=== PATIENT | male | born 1975 | race Caucasian/White ===

== ENCOUNTER 2020-11-29 07:23 | Outpatient (REF) | payer OTHER, SELFPAY ==
[2020-11-29 08:16] LABS: MANUAL DIFF FLAG NO
[2020-11-29 08:22] LABS: Basophils Percent Auto 0.5 % (0-2); Eosinophils Absolute Auto 0.4 X10*3/uL (0.0-0.4); Eosinophils Percent Auto 5.6 % (0-4); Hematocrit 47.1 % (42-52); Hemoglobin 15.1 g/dl (14.0-18.0); Imm Gran Abs Auto 0.02 X10*3/uL (0.00-0.03); Imm Gran Pct Auto 0.3 % (0.0-0.4); Lymphocytes Absolute Auto 2.2 X10*3/uL (1.2-4.9); Lymphocytes Percent Auto 35.2 % (20-40); Mean Corpuscular HGB Conc 32.1 g/dl (31.0-36.0); Mean Corpuscular Volume 84.1 fL (80-98); Mean Platelet Volume 9.6 fL (9.4-12.4); Monocytes Absolute Auto 0.6 X10*3/uL (0.1-1.2); Monocytes Percent Auto 9.4 % (2-11); Neutrophils Absolute Auto 3.1 X10*3/uL (2.0-8.3); Platelet Count 251 X10*3/uL (160-400); Red Cell Distribution Width 13.5 % (11.0-16.0); White Blood Count 6.3 X10*3/uL (4.8-10.8)
[2020-11-29 08:39] LABS: Alanine Aminotransferase 30 U/L (0-40); Albumin Level 4.4 g/dL (3.5-5.0); Alkaline Phosphatase 53 U/L (39-117); Anion Gap 10 (12-20); Aspartate Amino Transferase 24 U/L (5-37); Blood Urea Nitrogen 15 mg/dL (9-16); Calcium 9.7 mg/dL (8.4-10.2); Carbon Dioxide 30 mmol/L (22-29); Chloride 106 mmol/L (96-108); Cholesterol 189 mg/dL; Estimated Glomerular Filt Rate > 60; Glucose Random 110 mg/dL (60-115); HDL Cholesterol 43 mg/dL; LDL Cholesterol Calculated 116 mg/dl; Potassium 4.7 mmol/L (3.3-5.1); Sodium 141 mmol/L (135-145); Total Protein 7.4 g/dL (6.5-8.0); Triglycerides 153 mg/dL
[2020-11-29 09:03] LABS: Prostate Specific Antigen 0.73 ng/mL (<0.05-4.0)
== END 2020-11-29 07:24 | disposition home or self-care (01) ==
LOC: HO.LAB 07:23
PROVIDERS: PCP Internal Medicine Medical Oncology; Visit Provider Internal Medicine Medical Oncology
DX: Z00.00 Encounter for general adult medical examination without abnormal findings (principal); N20.0 Calculus of kidney; N52.9 Male erectile dysfunction, unspecified
CPT/HCPCS: 36415; 80053; 80061; 84153; 85025

== ENCOUNTER 2020-12-13 09:43 | Outpatient (REF) | payer OTHER, SELFPAY ==
--- NOTE | ~2020-12-13 | XR_ITS ---
EXAMINATION: XR KNEE, LEFT CLINICAL INFORMATION: Knee pain COMPARISON: None TECHNIQUE: Three views of the left knee. FINDINGS: There is no fracture, dislocation, or effusion. No joint narrowing or erosive change or chondrocalcinosis. Hoffa's fat pad and the deep infrapatellar recess are unremarkable. Bony mineralization is within normal. No lateralization patella. XR/XR knee LT 3V IMPRESSION: Unremarkable left knee.
== END 2020-12-13 09:44 | disposition home or self-care (01) ==
LOC: HO.XRAY 09:43
PROVIDERS: PCP Internal Medicine Medical Oncology; Visit Provider Physician Assistant
DX: S83.8X2A Sprain of other specified parts of left knee, initial encounter (principal); M25.562 Pain in left knee
CPT/HCPCS: 73562

== ENCOUNTER 2021-11-06 10:53 | Outpatient (REF) | payer OTHER, SELFPAY | END 2021-11-06 10:54 | disposition home or self-care (01) | LOC: HO.HOSX 10:53 | PROVIDERS: Visit Provider Physician Assistant | DX: Z13.89 Encounter for screening for other disorder (principal) ==

== ENCOUNTER 2022-02-19 07:56 | Outpatient (REF) | payer OTHER, SELFPAY ==
--- NOTE | ~2022-02-19 | XR_ITS ---
EXAMINATION: Knee x-ray CLINICAL INFORMATION: Pain COMPARISON: None TECHNIQUE: Standing AP view of both knees and lateral and sunrise view of the left knee FINDINGS: Right: Bone alignment is normal. No fracture or dislocation is seen. Joint spaces are normal. There is no joint effusion. AP view of the left knee is unremarkable. XR/XR knee standing BI IMPRESSION: Unremarkable exam.
--- NOTE | ~2022-02-19 | XR_ITS ---
EXAMINATION: Knee x-ray CLINICAL INFORMATION: Pain COMPARISON: None TECHNIQUE: Standing AP view of both knees and lateral and sunrise view of the left knee FINDINGS: Right: Bone alignment is normal. No fracture or dislocation is seen. Joint spaces are normal. There is no joint effusion. AP view of the left knee is unremarkable. XR/XR knee RT 2V IMPRESSION: Unremarkable exam.
== END 2022-02-19 07:57 | disposition home or self-care (01) ==
LOC: HO.HOSX 07:56
PROVIDERS: Visit Provider Physician Assistant
DX: M25.561 Pain in right knee (principal)
CPT/HCPCS: 73560; 73565

== ENCOUNTER 2022-03-05 08:41 | Outpatient (REF) | payer OTHER, SELFPAY ==
--- NOTE | ~2022-03-05 | MR_ITS ---
EXAMINATION: MR KNEE WITHOUT CONTRAST, RIGHT CLINICAL INFORMATION: Internal derangement of right knee. COMPARISON: X-rays of the right knee January 2022. TECHNIQUE: MRI of the knee without contrast was performed using routine sequences on a high-field scanner. FINDINGS: MENISCI: Medial Meniscus: Intact. Lateral Meniscus: Intact. LIGAMENTS: Cruciate: Intact enthesopathic cystic changes at the cruciate ligament attachment to the tibia. Collateral: Intact. EXTENSOR MECHANISM: Intact. ARTICULAR CARTILAGE/BONE: Patellofemoral Compartment: Small subchondral cyst in the medial facet with some minimal overlying cartilage heterogeneity. Trochlear cartilage normal. Overall mild patellofemoral arthrosis. Medial Compartment: Normal. Lateral Compartment: Normal. Miscellaneous: There are small oval foci within the medial metaphysis of the tibia and lateral metaphysis of the distal femur with a similar appearance being dark on T1 and bright on T2 with punctate areas of low signal within them. These measure approximately 4 mm each. These likely reflect small cartilage lesions/enchondromas. No surrounding edema. JOINT FLUID AND BURSAE: Normal. MR/MR knee RT wo con IMPRESSION: Menisci intact. Mild patellofemoral arthrosis. Small intramedullary lesions within the distal femur and proximal tibia most compatible with small cartilage lesions likely enchondroma and without clinical significance.
[2022-03-05 08:57] LABS: MANUAL DIFF FLAG NO
[2022-03-05 09:36] LABS: Basophils Percent Auto 0.6 % (0-2); Eosinophils Absolute Auto 0.4 X10*3/uL (0.0-0.4); Eosinophils Percent Auto 6.3 % (0-4); Hematocrit 45.9 % (42.0-52.0); Imm Gran Abs Auto 0.03 X10*3/uL (0.00-0.03); Imm Gran Pct Auto 0.5 % (0.0-0.4); Lymphocytes Absolute Auto 2.1 X10*3/uL (1.2-4.9); Lymphocytes Percent Auto 32.1 % (20-40); Mean Corpuscular HGB Conc 32.7 g/dl (31.0-36.0); Mean Corpuscular Hemoglobin 27.5 pg (27.0-33.0); Mean Corpuscular Volume 84.2 fL (80.0-98.0); Monocytes Absolute Auto 0.5 X10*3/uL (0.1-1.2); Monocytes Percent Auto 8.5 % (2-11); Neutrophils Absolute Auto 3.3 x10*3/uL (2.0-8.3); Platelet Count 261 X10*3/uL (160-400); Red Blood Count 5.45 X10*6/uL (4.60-5.80); Red Cell Distribution Width 13.5 % (11.0-16.0); White Blood Count 6.4 X10*3/uL (4.8-10.8)
[2022-03-05 10:00] LABS: Alanine Aminotransferase 41 U/L (0-40); Albumin Level 4.4 g/dL (3.5-5.0); Alkaline Phosphatase 69 U/L (39-117); Anion Gap 13 (12-20); Aspartate Amino Transferase 29 U/L (5-37); Bilirubin Total 0.7 mg/dL (0.0-1.0); Blood Urea Nitrogen 12 mg/dL (9-16); Calcium 9.3 mg/dL (8.4-10.2); Carbon Dioxide 29 mmol/L (22-29); Chloride 104 mmol/L (96-108); Cholesterol 177 mg/dL; Estimated Glomerular Filt Rate > 60; Glucose Fasting 105 mg/dL (60-99); HDL Cholesterol 45 mg/dL; LDL Cholesterol Calculated 119 mg/dl; Potassium 4.6 mmol/L (3.3-5.1); Sodium 141 mmol/L (135-145); Total Protein 7.7 g/dL (6.5-8.0); Triglycerides 66 mg/dL
[2022-03-05 10:25] LABS: Prostate Specific Antigen 0.72 ng/mL (<0.05-4.0)
== END 2022-03-05 08:42 | disposition home or self-care (01) ==
LOC: HO.MRI 08:41
PROVIDERS: Absent Provider Internal Medicine Medical Oncology; PCP Internal Medicine Medical Oncology; Visit Provider Physician Assistant
DX: Z00.00 Encounter for general adult medical examination without abnormal findings (principal); Z12.5 Encounter for screening for malignant neoplasm of prostate; M23.91 Unspecified internal derangement of right knee; N52.9 Male erectile dysfunction, unspecified; M25.562 Pain in left knee; E55.9 Vitamin D deficiency, unspecified
CPT/HCPCS: 36415; 73721; 80053; 80061; 84153; 85025

== ENCOUNTER → 2022-05-15 12:31 | Outpatient (BNVA) | payer OTHER, SELFPAY | PROVIDERS: PCP Internal Medicine Medical Oncology; Visit Provider Physician Assistant | DX: M23.91 Unspecified internal derangement of right knee (principal) | CPT/HCPCS: 20610; J1040 ==

== ENCOUNTER 2022-10-01 19:21 | Emergency (ER) | payer OTHER, SELFPAY ==
--- NOTE | ~2022-10-01 | CT_ITS ---
EXAMINATION: CT head/brain wo IV con CLINICAL INFORMATION: Reason for Exam new onset headache COMPARISON: None. TECHNIQUE: Contiguous axial imaging was performed from the skull base to vertex without intravenous contrast. Sagittal and coronal reformatted images were obtained. This CT examination was performed using dose optimization techniques as appropriate, variously including the following: * Automated exposure control * Adjustment of mA and/or kV according to patient size (this includes techniques or standardized protocols for targeted exams where dose is matched to indication/reason for exam; i.e. extremities or head) Use of iterative reconstruction technique DLP: 683 mGy-cm FINDINGS: No acute osseous or soft tissue abnormality. The mastoid air cells and visualized portions of the paranasal sinuses are well aerated. Debris in the left external auditory canal There is no evidence of acute intracranial hemorrhage or territorial infarction. No abnormal mass effect or midline shift is seen. Castellanos to white matter differentiation is well preserved. No extra-axial fluid collections are identified. No hydrocephalus. No significant volume loss. Hypodensities in the bilateral parietal deep white matter favored to reflect prominent perivascular spaces. Large arachnoid granulation in the right transverse sinus. CT/CT head/brain wo IV con IMPRESSION: No acute intracranial abnormality including hemorrhage, mass effect, hydrocephalus, or acute territorial edematous infarction.
[2022-10-01 19:45] VITALS: BP 111/83; PULSE 89; RESP 18; TEMP 36.5; O2SAT 97; BMI 33.1
[2022-10-01 20:19] LABS: MANUAL DIFF FLAG NO
[2022-10-01 20:24] LABS: Basophils Absolute Auto 0.1 X10*3/uL (0.0-0.2); Basophils Percent Auto 0.6 % (0-2); Eosinophils Absolute Auto 0.4 X10*3/uL (0.0-0.4); Eosinophils Percent Auto 4.3 % (0-4); Hemoglobin 14.4 g/dl (14.0-18.0); Imm Gran Abs Auto 0.03 X10*3/uL (0.00-0.03); Imm Gran Pct Auto 0.4 % (0.0-0.4); Lymphocytes Absolute Auto 2.8 X10*3/uL (1.2-4.9); Lymphocytes Percent Auto 33.9 % (20-40); Mean Corpuscular HGB Conc 32.7 g/dl (31.0-36.0); Mean Corpuscular Hemoglobin 27.3 pg (27.0-33.0); Mean Corpuscular Volume 83.5 fL (80.0-98.0); Mean Platelet Volume 9.4 fL (9.4-12.4); Monocytes Absolute Auto 0.6 X10*3/uL (0.1-1.2); Monocytes Percent Auto 7.6 % (2-11); Neutrophils Absolute Auto 4.4 x10*3/uL (2.0-8.3); Neutrophils Percent Auto 53.2 % (45-73); Platelet Count 267 X10*3/uL (160-400); Red Blood Count 5.27 X10*6/uL (4.60-5.80); Red Cell Distribution Width 13.4 % (11.0-16.0); White Blood Count 8.3 X10*3/uL (4.8-10.8)
[2022-10-01 20:41] LABS: Alanine Aminotransferase 36 U/L (0-40); Albumin Level 4.3 g/dL (3.5-5.0); Alkaline Phosphatase 55 U/L (39-117); Anion Gap 10 (12-20); Aspartate Amino Transferase 29 U/L (5-37); Bilirubin Total 0.9 mg/dL (0.0-1.0); Blood Urea Nitrogen 14 mg/dL (9-16); Calcium 9.3 mg/dL (8.4-10.2); Carbon Dioxide 28 mmol/L (22-29); Chloride 107 mmol/L (96-108); Creatinine Clr Calc Pharmacy 91.4; Estimated Glomerular Filt Rate 55; Glucose Random 89 mg/dL (60-115); Potassium 4.2 mmol/L (3.3-5.1); Sodium 141 mmol/L (135-145); Total Protein 7.2 g/dL (6.5-8.0)
--- NOTE | 2022-10-01 21:25 | ED.HA ---
HPI - Headache General Chief Complaint: Headache Stated Complaint: severe headache Time Seen by Provider: 10/01/22 21:24 Source: patient Mode of arrival: ambulatory Limitations: no limitations History of Present Illness HPI Narrative: Patient no significant past medical history notice headache on the left temporal area for last 3 days which is getting worse no photosensitivity no nausea no vomiting no dizziness no visual changes no earache no fever or chills patient never had similar headache in the past headache feels like throbbing feels like baseball hit his head. No family history of migraine Related Data Home Medications Medication Instructions Recorded Confirmed omeprazole 20 mg capsule,delayed 40 mg PO DAILY PRN 12/13/20 02/19/22 release sildenafil 100 mg tablet 100 mg PO DAILY PRN 12/13/20 02/19/22 Previous Rx's Medication Instructions Recorded [id number] 1 cap PO Q6H PRN headache #20 caps 10/01/22 50 mg-300 mg-40 mg capsule (Fioricet) Allergies Allergy/AdvReac Type Severity Reaction Status Date / Time No Known Allergies Allergy Verified 10/01/22 19:49 Review of Systems Review of Systems: Yes all other systems are reviewed and are negative [facility] Past Medical History Medical History Acid reflux Social History Social History Alcohol intake: current Alcohol intake frequency: holidays/special occasions only Patient Tobacco Use Status: Never used Tobacco Smoked in Last 30 Days: No Use of substances other than those prescribed or required for medical reasons: No Advance Directives: No Advance Directives Information Provided: No 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 Physical Exam Vital Signs: Vital Signs: Last Vital Signs Temp 97.7 F 10/01/22 19:45 Pulse 89 10/01/22 19:45 Resp 18 10/01/22 19:45 BP 111/83 10/01/22 19:45 Pulse Ox 97 10/01/22 19:45 O2 Del Method Room Air 10/01/22 19:45 BMI result Body Mass Index 33.1 Appearance: Alert. Oriented X3. No acute distress. Eyes: PERRLA, No Nystagmus ENT: Pharynx normal. Oral Mucosa moist left temporal artery tenderness left temporal area tenderness++ Neck: Normal inspection. Neck supple. CVS: Normal heart rate and rhythm. Pulses normal. Respiratory: No respiratory distress. Equal air entry bilateral, no wheezing/rales/rhonchi Abdomen: Soft and nontender. Bowel sounds are present, no mass palpable, no CVA tenderness Skin: Skin warm and dry. Normal skin color. Normal skin turgor. Extremities: No lower extremity edema. No calf tenderness Neuro: Oriented X 3. No motor deficit. No sensory deficit.No cerebellar signs , cranial nerves II-XII intact Medications Administered Discontinued Medications Generic Name Dose Route Start Last Admin Trade Name Freq PRN Reason Stop Dose Admin Acetaminophen/Butalbital/Caffeine 1 tab 10/01/22 21:26 10/01/22 21:45 Butalb/Acetamin/Caff 50/325/40 Tablet PO 10/01/22 21:27 1 tab ONCE ONE Administration Medical Decision Making Medical Decision Making [facility] Narrative: Patient with sudden onset of left temporal headache with local tenderness basic labs are normal positive for temporal arteritis/migraine/space-occupying lesion/SAH although low risk as blood pressure is normal , no focal neuro deficit His CT scan was negative sed rate is normal likely has tension headache/migraine headache with subacute onset patient felt better after Fioricet will discharge patient home on for recent no warning signs of subarachnoid bleed Lab Data [facility] Lab Attestation statement: I reviewed the patient's lab results. 10/01/22 20:14 10/01/22 20:14 Labs: Lab Results 10/01/22 10/01/22 10/01/22 Range/Units 20:14 20:14 20:14 WBC 8.3 (4.8-10.8) X10*3/uL RBC 5.27 (4.60-5.80) X10*6/uL Hgb 14.4 (14.0-18.0) g/dl Hct 44.0 (42.0-52.0) % MCV 83.5 (80.0-98.0) fL MCH 27.3 (27.0-33.0) pg MCHC 32.7 (31.0-36.0) g/dl RDW 13.4 (11.0-16.0) % Plt Count 267 (160-400) X10*3/uL MPV 9.4 (9.4-12.4) fL Immature Gran % (Auto) 0.4 (0.0-0.4) % Neut % (Auto) 53.2 (45-73) % Lymph % (Auto) 33.9 (20-40) % [place] % (Auto) 7.6 (2-11) % Eos % (Auto) 4.3 H (0-4) % Baso % (Auto) 0.6 (0-2) % Lymph # (Auto) 2.8 (1.2-4.9) X10*3/uL [place] # (Auto) 0.6 (0.1-1.2) X10*3/uL Eos # (Auto) 0.4 (0.0-0.4) X10*3/uL Baso # (Auto) 0.1 (0.0-0.2) X10*3/uL Abs Immat Gran (auto) 0.03 (0.00-0.03) X10*3/uL Absolute Neuts (auto) 4.4 (2.0-8.3) x10*3/uL Absolute Nucleated RBC 0.000 (0.0-0.012) X10*3/uL Nucleated RBC % (auto) 0.0 (0.0-0.2) /100WBC ESR 3 (0-15) MM/HR Sodium 141 (135-145) mmol/L Potassium 4.2 (3.3-5.1) mmol/L Chloride 107 (96-108) mmol/L Carbon Dioxide 28 (22-29) mmol/L Anion Gap 10 L (12-20) BUN 14 (9-16) mg/dL Creatinine 1.38 (0.5-1.4) mg/dL Estim Creat Clear Calc 91.4 Estimated GFR 55 Random Glucose 89 (60-115) mg/dL Calcium 9.3 (8.4-10.2) mg/dL Total Bilirubin 0.9 (0.0-1.0) mg/dL AST 29 (5-37) U/L ALT 36 (0-40) U/L Alkaline Phosphatase 55 (39-117) U/L Total Protein 7.2 (6.5-8.0) g/dL Albumin 4.3 (3.5-5.0) g/dL Discharge Plan Discharge Clinical Impression: Migraine Patient Disposition: Home, Self-Care Instructions: Migraine Headache (ED) Additional Instructions: Likely you have migraine headache Take medication for headache as prescribed Follow-up with your PCP if headache continues for further management including MRI Prescriptions: New qmkgcgcpep-vxxvylvpiryke-mdjq [Fioricet] 50-300-40 mg capsule 1 cap PO Q6H PRN (Reason: headache) Qty: 20 0RF No Action omeprazole 20 mg capsule,delayed release(DR/EC) 40 mg PO DAILY PRN sildenafil 100 mg tablet 100 mg PO DAILY PRN
[2022-10-01] MEDS: Butalb/Acetamin/Caff 50/325/40 TABLET 1 TAB PO (21:45)
[2022-10-01 22:13] LABS: Erythrocyte Sedimentation Rate 3 MM/HR (0-15)
== END 2022-10-01 22:53 | disposition home or self-care (01) ==
PROVIDERS: Emergency Provider Internal Medicine; PCP Internal Medicine Medical Oncology
DX: G43.909 Migraine, unspecified, not intractable, without status migrainosus (principal); Z79.899 Other long term (current) drug therapy
CPT/HCPCS: 36415; 70450; 80053; 85025; 85652; 99284

== ENCOUNTER 2023-01-28 07:49 | Outpatient (REF) | payer OTHER, SELFPAY ==
[2023-01-28 08:17] LABS: MANUAL DIFF FLAG NO
[2023-01-28 08:52] LABS: Basophils Absolute Auto 0.1 X10*3/uL (0.0-0.2); Basophils Percent Auto 0.8 % (0-2); Eosinophils Absolute Auto 0.3 X10*3/uL (0.0-0.4); Eosinophils Percent Auto 4.9 % (0-4); Hematocrit 48.6 % (42.0-52.0); Hemoglobin 15.5 g/dl (14.0-18.0); Imm Gran Abs Auto 0.01 X10*3/uL (0.00-0.03); Imm Gran Pct Auto 0.2 % (0.0-0.4); Lymphocytes Percent Auto 31.2 % (20-40); Mean Corpuscular HGB Conc 31.9 g/dl (31.0-36.0); Mean Corpuscular Hemoglobin 27.1 pg (27.0-33.0); Mean Corpuscular Volume 85.1 fL (80.0-98.0); Mean Platelet Volume 9.7 fL (9.4-12.4); Monocytes Absolute Auto 0.6 X10*3/uL (0.1-1.2); Monocytes Percent Auto 9.2 % (2-11); Neutrophils Absolute Auto 3.5 x10*3/uL (2.0-8.3); Neutrophils Percent Auto 53.7 % (45-73); Platelet Count 260 X10*3/uL (160-400); Red Blood Count 5.71 X10*6/uL (4.60-5.80); Red Cell Distribution Width 13.4 % (11.0-16.0); White Blood Count 6.5 X10*3/uL (4.8-10.8)
[2023-01-28 09:32] LABS: Alanine Aminotransferase 28 U/L (0-40); Albumin Level 4.2 g/dL (3.5-5.0); Alkaline Phosphatase 60 U/L (39-117); Anion Gap 14 (12-20); Aspartate Amino Transferase 22 U/L (5-37); Bilirubin Total 0.9 mg/dL (0.0-1.0); Blood Urea Nitrogen 13 mg/dL (9-16); Calcium 9.8 mg/dL (8.4-10.2); Carbon Dioxide 25 mmol/L (22-29); Chloride 106 mmol/L (96-108); Cholesterol 182 mg/dL; Estimated Glomerular Filt Rate > 60; Glucose Fasting 116 mg/dL (60-99); HDL Cholesterol 47 mg/dL; LDL Cholesterol Calculated 112 mg/dl; Sodium 141 mmol/L (135-145); Total Protein 7.7 g/dL (6.5-8.0); Triglycerides 118 mg/dL
[2023-01-28 09:54] LABS: Prostate Specific Antigen 0.54 ng/mL (<0.05-4.0)
== END 2023-01-28 07:50 | disposition home or self-care (01) ==
LOC: HO.LAB 07:49
PROVIDERS: PCP Internal Medicine Medical Oncology; Visit Provider Internal Medicine Medical Oncology
DX: Z00.00 Encounter for general adult medical examination without abnormal findings (principal); N52.9 Male erectile dysfunction, unspecified; E66.9 Obesity, unspecified; Z12.5 Encounter for screening for malignant neoplasm of prostate
CPT/HCPCS: 36415; 80053; 80061; 83735; 84153; 85025

== ENCOUNTER 2023-03-26 09:27 | Outpatient (AMB) | payer OTHER, SELFPAY ==
[2023-03-26 09:28] VITALS: BMI 33.1
--- NOTE | 2023-03-26 09:28 | MHC.OFFVIS ---
Intake Vital Signs 03/26/23 09:28 Height 6 ft 3 in Weight 265 lb BMI 33.1 Intake Visit Reasons: OV - right knee pain Intake Note: Damaso is a 47 year old male who presents today for a follow up for his right knee pain, last injection 05/15/22. Patient reports his left knee started to get worse about 6 months. He states that his pain is on the top of the knee. Patient states that his pain does come around the back of the knee and down to the calf. Allergies No Known Allergies Allergy (Verified 03/26/23 09:28) HPI OV - right knee pain HPI Details 47-year-old male who presents in the office today for a follow up of bilateral knee pain. The patient had a cortisone injection in the right knee on 05/15/2022, with a couple months of relief. He reports the left knee is worse then the right knee with an increase in pain about 6 months ago. He claims the pain is on the top of the knee which radiates around to the back of the knee and down to his calf. He reports he will be walking and the leg will go to sleep. He states the sensation will last for about 5 minutes. He states this has been going on for most days for the last 6 months. He denies any back pain. 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 He does a lot of pushing, pulling, and heavy lifting. 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 Review of Systems Const All systems reviewed & are unremarkable except as noted in HPI and below Physical Exam Vital Signs: BMI result Body Mass Index 33.1 Const General: cooperative, healthy appearing and no acute distress Resp Effort & Inspection: normal respiratory effort and able to speak in complete sentences Cardio Rate: regular rate Peripheral pulses: Peripheral pulses 2+ throughout GI Palpation (GI): Soft to palpation Skin Lesions: no lesions Rashes: no rashes Extrem Other: Left knee: Normal to inspection. No ecchymosis, erythema, or joint effusion. No tenderness to palpation to the lateral joint line. Tenderness to palpation of the medial joint line. Full knee extension and flexion. Positive Damian's, medial joint line. NVI. Assessment & Plan Assessment & Plan (1) Injury of meniscus of left knee: Code(s): S83.8X2A - Sprain of other specified parts of left knee, initial encounter Qualifiers: Encounter type: subsequent encounter Qualified Code(s): S83.8X2D - Sprain of other specified parts of left knee, subsequent encounter Plan Mr. Mejia is a 47-year-old male who presents in the office today for a follow up of bilateral knee pain. The patient had a cortisone injection in the right knee on 05/15/2022, with a couple months of relief. He reports the left knee is worse then the right knee with an increase in pain about 6 months ago. He claims the pain is on the top of the knee which radiates around to the back of the knee and down to his calf. He reports he will be walking and the leg will go to sleep. He states the sensation will last for about 5 minutes. He states this has been going on for most days for the last 6 months. He denies any back pain. 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 He does a lot of pushing, pulling, and heavy lifting. Due to the patient having to work today he would like to schedule the injection for next week. In the event the cortisone injection, which he will give 2 weeks, does not give the patient relief he will be referred for an MRI. For further evaluation of the lower back and intermittent left lower extremity numbness and tingling he will be referred to Physiatry. Follow up will be on Saturday with Kevin Wakefield PA-C and with Physiatry, or sooner if needed. X-rays of the left knee obtained while in the office today and reviewed by , Senia Johnston PA-C, revealed no evidence of acute fracture or dislocation. Mild arthritic changes. Orders: Orders XR knee standing BI Today M25.569 - Pain in unspecified knee XR knee LT 2V Today M25.569 - Pain in unspecified knee Patient Instructions: Scribed for Senia Johnston PA-C by Tiffany Price medical anthropology director, on 03/26/2023 at 9:30 am, EST. Coding Level of Care Code Est Pt Level 3 (74267) Diagnoses Injury of meniscus of left knee, subsequent encounter S83.8X2D Encounter type: subsequent encounter
== END 2023-03-26 10:05 | disposition home or self-care (01) ==
PROVIDERS: PCP Internal Medicine Medical Oncology; Visit Provider Physician Assistant
DX: S83.8X2D Sprain of other specified parts of left knee, subsequent encounter (principal); M25.561 Pain in right knee; M25.562 Pain in left knee
CPT/HCPCS: 99213

== ENCOUNTER 2023-03-26 09:54 | Outpatient (REF) | payer OTHER, SELFPAY ==
--- NOTE | ~2023-03-26 | XR_ITS ---
EXAMINATION: XR knee standing BI, XR knee LT 2V CLINICAL INFORMATION: 47-year-old male with nonspecific pain in left knee COMPARISON: Most recent right knee radiograph: Date TECHNIQUE: AP bilateral weightbearing, sunrise and lateral view of left knee. FINDINGS: Bones and soft tissues are normal. No fracture or joint effusion. Alignment is anatomic. Joint spaces are well maintained. No abnormal soft tissue calcification. The medial, lateral and patellofemoral compartments are preserved. No evidence of osteophytosis. No evidence of erosive changes. No suprapatellar joint effusion. No evidence of chondrocalcinosis or abnormal calcifications. No intra-articular foreign body. No fracture or dislocation. Alignment is anatomic. No joint effusion. No soft tissue abnormality. XR/XR knee LT 2V IMPRESSION: Normal right knee.
--- NOTE | ~2023-03-26 | XR_ITS ---
EXAMINATION: XR knee standing BI, XR knee LT 2V CLINICAL INFORMATION: 47-year-old male with nonspecific pain in left knee COMPARISON: Most recent right knee radiograph: Date TECHNIQUE: AP bilateral weightbearing, sunrise and lateral view of left knee. FINDINGS: Bones and soft tissues are normal. No fracture or joint effusion. Alignment is anatomic. Joint spaces are well maintained. No abnormal soft tissue calcification. The medial, lateral and patellofemoral compartments are preserved. No evidence of osteophytosis. No evidence of erosive changes. No suprapatellar joint effusion. No evidence of chondrocalcinosis or abnormal calcifications. No intra-articular foreign body. No fracture or dislocation. Alignment is anatomic. No joint effusion. No soft tissue abnormality. XR/XR knee standing BI IMPRESSION: Normal right knee.
== END 2023-03-26 09:55 | disposition home or self-care (01) ==
LOC: HO.HOSX 09:54
PROVIDERS: Visit Provider Physician Assistant
DX: M25.562 Pain in left knee (principal); M25.561 Pain in right knee; S83.8X2D Sprain of other specified parts of left knee, subsequent encounter; X58.XXXD Exposure to other specified factors, subsequent encounter
CPT/HCPCS: 73560; 73565

== ENCOUNTER 2023-04-02 19:27 | Day surgery (SDC) | payer OTHER, SELFPAY ==
--- NOTE | ~2023-04-02 | FL_ITS ---
EXAMINATION: XR FLUOROSCOPY WITH IMAGES CLINICAL INFORMATION: Cystoscopy. COMPARISON: None available. TECHNIQUE: Fluoroscopy Supervised By: Dr. Derrick Poon. Fluoroscopy Time: 26.2 seconds. Cumulative Dose: 18.05 mGy. DAP: Not available. Images: 3. FINDINGS: Images demonstrate a left internal ureteral stent in satisfactory position. FL/FL guidance in OR IMPRESSION: Fluoroscopy guidance for urology procedure
[2023-04-02 21:00] VITALS: BP 124/76; PULSE 67; RESP 18; TEMP 36.6; O2SAT 97; BMI 33.4
--- NOTE | 2023-04-02 21:53 | MHC.EDTECH ---
Labs,and a urine culture were obtained and patient brought back to waiting area.
[2023-04-02 22:08] LABS: Alanine Aminotransferase 29 U/L (0-40); Albumin Level 4.6 g/dL (3.5-5.0); Alkaline Phosphatase 61 U/L (39-117); Anion Gap 16 (12-20); Aspartate Amino Transferase 34 U/L (5-37); Bilirubin Direct 0.3 mg/dL (0.0-0.5); Bilirubin Total 0.9 mg/dL (0.0-1.0); Blood Urea Nitrogen 14 mg/dL (9-16); Carbon Dioxide 23 mmol/L (22-29); Chloride 103 mmol/L (96-108); Creatinine Clr Calc Pharmacy 83.5; Estimated Glomerular Filt Rate 50; Glucose Random 129 mg/dL (60-115); Lipase 15 U/L (8-78); Potassium 4.5 mmol/L (3.3-5.1); Sodium 137 mmol/L (135-145); Total Protein 8.6 g/dL (6.5-8.0)
[2023-04-03] VITALS (10 sets, daily range): BP systolic 94–131; BP diastolic 57–90; PULSE 74–91; RESP 16–18; TEMP 36.7–37.7; O2SAT 94–100
--- NOTE | 2023-04-03 00:24 | ED.ABDPAIN ---
HPI - Abdominal Pain General Chief Complaint: Abdominal Pain Stated Complaint: ?Kidney stones Time Seen by Provider: 04/03/23 00:19 Source: patient Mode of arrival: ambulatory Limitations: no limitations History of Present Illness HPI narrative: A 47 year male came in for evaluation of left-sided abdominal pain, started early today, pain has been constant pain started and left flank area now moving down to the left groin area, pain is associated with nausea, vomiting, and chills. Patient had similar pain in the past when he gets kidney stones last stone was 8 years ago patient usually require surgical intervention to extract the stone. Past abdominal surgeries significant for hernia repair. Related Data Home Medications Medication Instructions Recorded Confirmed omeprazole 20 mg capsule,delayed 40 mg PO DAILY PRN 12/13/20 02/19/22 release sildenafil 100 mg tablet 100 mg PO DAILY PRN 12/13/20 02/19/22 Previous Rx's Medication Instructions Recorded pykhhdpuik-epddqdroghspe-xiohnuyv 1 cap PO Q6H PRN headache #20 caps 10/01/22 50 mg-300 mg-40 mg capsule (Fioricet) Allergies Allergy/AdvReac Type Severity Reaction Status Date / Time No Known Allergies Allergy Verified 03/26/23 09:28 Review of Systems Review of Systems All other systems are reviewed and are negative Constitutional: Reports as per HPI and Reports no additional constitutional complaints Eyes: Reports as per HPI and Reports no additional eye complaints Reports system reviewed and no additional complaints, except as documented Cardiovascular: Reports as per HPI and Reports no additional cardiovascular complaints Respiratory: Reports as per HPI and Reports no additional respiratory complaints Gastrointestinal: Reports as per HPI and Reports no additional gastrointestinal complaints Genitourinary: Reports no additional female genitourinary complaints Musculoskeletal: Reports no additional musculoskeletal complaints Skin/Breast: Reports system reviewed and no additional complaints, except as docu Psychiatric: Reports no additional psychiatric complaints Endocrine: Reports no additional endocrine complaints Hematologic/Lymphatic: Reports no additional hematologic/lymphatic complaints Allergic/Immunologic: Reports no additional allergic/immunologic complaints Reports system reviewed and no additional complaints, except as documented and Reports Abnormal speech present [facility] Past Medical History Medical History Acid reflux Social History Social History Alcohol intake: current Alcohol intake frequency: holidays/special occasions only Patient Tobacco Use Status: Never used Tobacco Advance Directives: No Advance Directives Information Provided: No 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 Physical Exam ED Vital Signs: Vital Signs - 24 hr 04/02/23 21:00 04/03/23 01:13 04/03/23 04:42 Temperature 97.8 F 98.3 F Pulse Rate 67 90 77 Respiratory Rate 18 18 18 Blood Pressure 124/76 94/57 L 108/76 Pulse Oximetry 97 94 97 Oxygen Delivery Method Room Air Room Air Room Air BMI result Body Mass Index 33.4 Vital signs have been reviewed and appear to be correct. Blood pressure elevated. Heart rate normal. Respiratory rate normal. Temperature normal. Oxygen saturation normal. Appearance: Alert. Oriented X3. Mild acute distress. Head: Normal external exam. Normocephalic. Atraumatic. No Cook signs noted. No raccoon eyes noted Eyes: PERRLA. EOMI. Conjunctiva and sclera normal. Eyelids normal. ENT: TM's Normal. Pharynx normal. Uvula midline. Moist mucous membranes. No trismus noted. No drooling noted. No muffled voice noted. Neck: Normal inspection. Neck supple. FROM. No adenopathy. Thyroid Normal. No meningeal signs. No neck mass noted. CVS: Normal heart rate and rhythm. Heart sound normal. No murmurs noted. Pulses normal throughout. Respiratory: No respiratory distress. Painless inspiration. Breath sounds normal. No wheezes/rales/rhonchi noted. Chest nontender. No accessory muscle usage noted or decreased air movement noted. Abdomen: Soft, mild left lower quadrant tenderness, no guarding, no rebound tenderness Bowel sounds normal in all 4 quadrants. No distention noted. No organomegaly noted. No visible injury noted. Back: Left CVA tenderness. Full range of motion noted. Skin: Skin warm and dry. Normal skin color. Normal skin turgor. No rashes/lesions/lacerations noted. Extremities: No lower extremity edema. Extremities exhibit normal range of motion. Extremities nontender. Neuro: Oriented X 3. Cranial nerve exam: II-XII are grossly intact No motor deficit. No sensory deficit. Reflexes normal. Course Reevaluation(s) Reevaluation #1: 2 left distal ureteric stone, in intractable pain requiring multiple doses of Dilaudid for pain control, case was discussed with Dr. Poon who will evaluate the patient in the ED in the a.m., will keep the patient NPO. Case signed out to Dr. Cheng. Time: 05:25 Medical Decision Making Differential Diagnosis Differential Diagnoses: The differential diagnosis associated with the presentation includes (Kidney stone, colitis, diverticulitis UTI, pyelonephritis, electrolyte abnormality, severe anemia.) Admission/Observation Consideration of admission/observation: Escalation of care including admission/observation considered Consult Healthcare Provider Management of the patient was discussed with: Storage Management Architect (Dr. Poon) Lab Data MDM Lab Attestation statement: I reviewed the patient's lab results. 04/02/23 21:41 04/02/23 21:41 Labs: Lab Results 04/02/23 Range/Units 21:41 WBC 13.4 H (4.8-10.8) X10*3/uL RBC 5.64 (4.60-5.80) X10*6/uL Hgb 15.4 (14.0-18.0) g/dl Hct 46.2 (42.0-52.0) % MCV 81.9 (80.0-98.0) fL MCH 27.3 (27.0-33.0) pg MCHC 33.3 (31.0-36.0) g/dl RDW 13.3 (11.0-16.0) % Plt Count 260 (160-400) X10*3/uL MPV 9.1 L (9.4-12.4) fL Immature Gran % (Auto) 0.6 H (0.0-0.4) % Neut % (Auto) 82.0 H (45-73) % Lymph % (Auto) 9.4 L (20-40) % [place] % (Auto) 7.2 (2-11) % Eos % (Auto) 0.7 (0-4) % Baso % (Auto) 0.1 (0-2) % Lymph # (Auto) 1.3 (1.2-4.9) X10*3/uL [place] # (Auto) 1.0 (0.1-1.2) X10*3/uL Eos # (Auto) 0.1 (0.0-0.4) X10*3/uL Baso # (Auto) 0.0 (0.0-0.2) X10*3/uL Abs Immat Gran (auto) 0.08 H (0.00-0.03) X10*3/uL Absolute Neuts (auto) 11.0 H (2.0-8.3) x10*3/uL Absolute Nucleated RBC 0.000 (0.0-0.012) X10*3/uL Nucleated RBC % (auto) 0.0 (0.0-0.2) /100WBC Sodium 137 (135-145) mmol/L Potassium 4.5 (3.3-5.1) mmol/L Chloride 103 (96-108) mmol/L Carbon Dioxide 23 (22-29) mmol/L Anion Gap 16 (12-20) BUN 14 (9-16) mg/dL Creatinine 1.50 H (0.5-1.4) mg/dL Estim Creat Clear Calc 83.5 Estimated GFR 50 Random Glucose 129 H (60-115) mg/dL Calcium 10.0 (8.4-10.2) mg/dL Total Bilirubin 0.9 (0.0-1.0) mg/dL Direct Bilirubin 0.3 (0.0-0.5) mg/dL AST 34 (5-37) U/L ALT 29 (0-40) U/L Alkaline Phosphatase 61 (39-117) U/L Total Protein 8.6 H (6.5-8.0) g/dL Albumin 4.6 (3.5-5.0) g/dL Lipase 15 (8-78) U/L Urine Color Yellow Urine Appearance Clear Urine pH 5.5 (5.0-9.0) Ur Specific [place] 1.025 (1.005-1.025) Urine Protein Trace (Neg-Trace) mg/dL Urine Glucose (UA) Negative (Negative) mg/dL Urine Ketones Negative (Negative) mg/dL Urine Blood Moderate (2+) H (Negative) Urine Nitrite Negative (Negative) Ur Leukocyte Esterase Negative (Negative) Urine RBC 3-5 H (0-2) /HPF Urine WBC 0-5 (0-5) /HPF Ur Squamous Epith Cells 3-5 (0-2) /HPF Urine Bacteria None Seen (None Seen) Hyaline Casts 0-2 (0-2) /LPF Independent Interpretation I performed an independent interpretation of an: CT Scan (Abdomen and pelvis: 3& 4 mm stone at the distal ureter with hydronephrosis.) Radiology Impression Discussion of test interpretation with radiology: I have reviewed the radiologist's reading. (Mild left hydronephrosis and ureteral dilatation from 2 adjacent left distal ureteral stones measuring 3 and 4 millimeters. Small bilateral renal stones. 4 mm left lower lobe nodule. According to the UPDATED 2017 Fleischner Society recommendations, the advised follow-up imaging for less than 6 mm so) Chronic Conditions Patient?s care impacted by: Other (History of kidney stones) Medications Administered Discontinued Medications Generic Name Dose Route Start Last Admin Trade Name Freq PRN Reason Stop Dose Admin Hydromorphone HCl 2 mg 04/03/23 00:23 04/03/23 00:36 Hydromorphone Hcl 2 Mg/Ml Vial IVPUSH 04/03/23 00:24 2 mg ONCE ONE Administration Protocol Sodium Chloride 1,000 mls @ 999 mls/hr 04/03/23 00:23 04/03/23 03:31 Ns IV 04/03/23 01:23 Infused .Q1H1M ONE Infusion Ketorolac Tromethamine 30 mg 04/03/23 00:24 04/03/23 00:36 Ketorolac Tromethamine 30 Mg/Ml Vial IVPUSH 04/03/23 00:25 30 mg ONCE ONE Administration Discharge Plan Discharge Clinical Impression: Renal colic on left side, Calculus of left ureter Patient Disposition: Still a Patient Prescriptions: No Action [id number]-[id number] [Fioricet] 50-300-40 mg capsule 1 cap PO Q6H PRN (Reason: headache) Qty: 20 0RF omeprazole 20 mg capsule,delayed release(DR/EC) 40 mg PO DAILY PRN sildenafil 100 mg tablet 100 mg PO DAILY PRN
--- NOTE | 2023-04-03 09:29 | PHA.MEDREC ---
Pharmacy Consult ? Medication Reconciliation Pharmacy has completed the medication reconciliation.PHARMACY HAS REVIEWED THE MED REC DONE BY NURSING
--- NOTE | 2023-04-03 13:25 | PM.UROCN ---
History of Present Illness Consult details Consult date: 04/03/23 Narrative: Left flank pain 47-year-old male Prior stone follow-up Presents with 1 day history of sudden onset left flank pain associated with nausea Imaging - CT scanMild left hydronephrosis and ureteral dilatation from 2 adjacent left distal ureteral stones measuring 3 and 4 millimeters. Small bilateral renal stones Mild elevated creatinine 1.5, WBC 13.4, calcium 10.0 Recommend left ureteroscopy with laser lithotripsy and stent placement Review of Systems Constitutional: Constitutional: Denies chills and Denies fever(s) Cardiovascular: Cardiovascular: Reports no additional cardiovascular complaints and Denies syncope Respiratory: Respiratory: Denies cough Gastrointestinal: Gastrointestinal: Denies abdominal pain and Denies heartburn Genitourinary: Genitourinary: Reports as per HPI and Denies change in libido Neurologic: Denies syncope Psychiatric: Psychiatric: Denies change in libido Endocrine: Endocrine: Denies change in libido [facility] Past Medical History Medical History Acid reflux Social History Social History Alcohol intake: current Alcohol intake frequency: holidays/special occasions only Patient Tobacco Use Status: Never used Tobacco 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 Meds Allergies Allergy/AdvReac Type Severity Reaction Status Date / Time No Known Allergies Allergy Verified 03/26/23 09:28 Active Medications: Current Medications Levofloxacin (Levaquin) 500 mg in 100 mls @ 100 mls/hr IV PREOP ONE Stop: 04/03/23 14:07 Home Medications Medication Instructions Recorded Confirmed Last Taken Type omeprazole 20 mg capsule,delayed 40 mg PO DAILY PRN Acid Reflux 12/13/20 04/03/23 04/02/23 History release Physical Exam Vital Signs: Vital Signs: Last Vital Signs Temp 98.1 F 04/03/23 09:02 Pulse 81 04/03/23 09:02 Resp 16 04/03/23 09:02 BP 109/65 04/03/23 09:02 Pulse Ox 96 04/03/23 09:02 O2 Del Method Room Air 04/03/23 09:02 BMI result Body Mass Index 33.4 Const: General: cooperative, healthy appearing, comfortable and no acute distress Orientation/consciousness: patient oriented x3 HEENT: Face and sinus: Yes normal facial exam Mouth: moist mucous membranes Neck: Neck: Yes normal visual inspection, Yes full ROM and Yes trachea midline Chest: Chest palpation & inspection: normal inspection of the chest Resp: Effort & Inspection: normal respiratory effort, able to speak in complete sentences and no respiratory distress GI: Inspection: Yes normal to inspection Back/Spine/Pelvis: Cervical Spine: normal cervical lordosis Thoracic/Lumbar Spine: thoracic and lumbar spine normal to inspection Skin: General skin exam: no rashes or lesions noted Neuro: General: patient oriented x3, gait normal, tone normal and moves all extremities Extrem: General: Yes normal to inspection and Yes capillary refill normal Results Labs 04/02/23 21:41 04/02/23 21:41 Labs: Abnormal lab results 04/02/23 Range/Units 21:41 WBC 13.4 H (4.8-10.8) X10*3/uL MPV 9.1 L (9.4-12.4) fL Immature Gran % (Auto) 0.6 H (0.0-0.4) % Neut % (Auto) 82.0 H (45-73) % Lymph % (Auto) 9.4 L (20-40) % Abs Immat Gran (auto) 0.08 H (0.00-0.03) X10*3/uL Absolute Neuts (auto) 11.0 H (2.0-8.3) x10*3/uL Creatinine 1.50 H (0.5-1.4) mg/dL Random Glucose 129 H (60-115) mg/dL Total Protein 8.6 H (6.5-8.0) g/dL Urine Blood Moderate (2+) H (Negative) Urine RBC 3-5 H (0-2) /HPF Short CBC 04/02/23 Range/Units 21:41 WBC 13.4 H (4.8-10.8) X10*3/uL Hgb 15.4 (14.0-18.0) g/dl Hct 46.2 (42.0-52.0) % Plt Count 260 (160-400) X10*3/uL BMP 04/02/23 21:41 Sodium 137 Potassium 4.5 Chloride 103 Carbon Dioxide 23 BUN 14 Creatinine 1.50 H Calcium 10.0 Liver Function 04/02/23 Range/Units 21:41 Total Bilirubin 0.9 (0.0-1.0) mg/dL Direct Bilirubin 0.3 (0.0-0.5) mg/dL AST 34 (5-37) U/L ALT 29 (0-40) U/L Alkaline Phosphatase 61 (39-117) U/L Albumin 4.6 (3.5-5.0) g/dL Urine 04/02/23 Range/Units 21:41 Urine Color Yellow Urine Appearance Clear Urine pH 5.5 (5.0-9.0) Ur Specific [place] 1.025 (1.005-1.025) Urine Protein Trace (Neg-Trace) mg/dL Urine Glucose (UA) Negative (Negative) mg/dL All other labs normal. Assessment and Plan (1) Calculus of left ureter: Status: Acute Plan Ureteroscopy We discussed the nature of the decision and reasonable alternatives for performing ureteroscopy. Options such as medical therapy were discussed. Interventions include chemical dissolution, ESWL, ureteroscopy with laser lithotripsy and stent placement, PCNL. The relative uncertainties and benefits related to each alternate procedure were adequately discussed. General surgical risks including, but not limited to - pain, bleeding, infection, myocardial infarction, pulmonary embolus, deep vein thrombosis and cerebrovascular accident which may result in further hospitalization were discussed. Full disclosure of the procedure as well as all major risks, benefits and complications were discussed including but not limited to damage to the urethra, bladder and kidney infection, damage to the ureter, stent migration or malposition, scarring to the renal pelvis, remnant stone fragments, subsequent stone passage with need for secondary procedures. The overall secondary procedure rate is approximately 10-15%. The overall clearance rate is approximately 90-95%. Success of the procedure in the short-term does not necessarily guarantee that long-term success will be maintained. Suitable follow up will need to be maintained. The patient showed understanding of discussion and wishes to proceed with - cystoscopy, retrograde, ureteroscopy, possible lithotripsy/stone basketing and stent on the left side Time Spent With Patient Time: Total time managing care of this patient today ____ minutes. Procedures Date of Service Date of Service: 04/03/23
--- NOTE | 2023-04-03 15:17 | PC.NURSE ---
assumed care of pt at 0700. pt a&o x4, pleasant, calm, and cooperative. 20G to the LAC, patent. pt reporting significant BL flank pain. has been medicated per aug. fluids infused per aug. pt ambulatory to bathroom, will sometimes sit at side of bed to relieve pain. pt NPO since 29 this AM. per pt. rr even/unlabored. call anguiano within pt reach. all pt needs met gerber. plan of care ongoing.
--- NOTE | 2023-04-03 16:36 | PC.NURSE ---
report given to Jayme RN
--- NOTE | 2023-04-03 17:17 | MHC.SHP ---
Pre-Procedural Eval Section A Date of Service: 04/03/23 The patient is an INPATIENT: Yes Changes since office visit: No Cold of Flu in the past 2 weeks, No New Medical Problems, No Changes in Medication and No Patient answered all questions The History & Physical has been completed within 30 days and I have reviewed it.: Yes Section B Chief Complaint: ?Kidney stones Details of Present Illness: distal left ureteric stone Allergies: Allergies Allergy/AdvReac Type Severity Reaction Status Date / Time No Known Allergies Allergy Verified 03/26/23 09:28 Review of Systems Sugical H&P ROS: Negative: Constitution, Cardiovascular, Respiratory, Neurological, Psychiatric, Hem-Onc, Allergic/Immunologic, Gastrointestinal, Genitourinary, Musculoskeletal, Integumentary, Endocrine and Eyes/Ears/Nose/Throat Exam Surgical H&P Exam: Normal: HEENT, Normal: Heart, Normal: Lungs, Normal: Extremities, Normal: Abdomen, Normal: Skin and Normal: Neurological Plan Diagnosis/Plan: Unchanged ( cystoscopy, left retrograde, left ureteroscopy with laser lithotripsy and stent placed) I have reviewed the history and physical and performed a pertinent physical examination on my patient. No changes have occurred unless specified. Time Spent With Patient Time: Total time managing care of this patient today ____ minutes.
--- NOTE | 2023-04-03 18:01 | HO.ANESPROP2 ---
[facility] Active Problems Active Problems: All Active Problems (Updated 04/03/23 @ 05:30 by Victoriano Smith MD) Calculus of left ureter (Acute) Renal colic on left side (Acute) Internal derangement of right knee (Acute) Injury of meniscus of left knee (Acute) Left anterior knee pain (Acute) Past Medical History Medical History Acid reflux Family History Family history of problems with anesthesia: No Surgical History History of Problems with Anesthesia: No Social History Social History Alcohol intake: current Alcohol intake frequency: 0-2 drinks per day Patient Tobacco Use Status: Never used Tobacco Smoked in Last 30 Days: No Use of substances other than those prescribed or required for medical reasons: No Are you DNR?: No Advance Directives: No Advance Directives Information Provided: No 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 Allergies Allergy/AdvReac Type Severity Reaction Status Date / Time No Known Allergies Allergy Verified 03/26/23 09:28 Home Medications Medication Instructions Recorded Confirmed Last Taken Type omeprazole 20 mg capsule,delayed 40 mg PO DAILY PRN Acid Reflux 12/13/20 04/03/23 04/02/23 History release Exam Exam Date and Time: April 03, 2023 180 Height,Weight and Vital Signs: Height 6 ft 3 in Weight 121.2 kg Last Vital Signs Temp 98.6 F 04/03/23 16:56 Pulse 84 04/03/23 16:56 Resp 18 04/03/23 16:56 BP 131/90 H 04/03/23 16:56 Pulse Ox 100 04/03/23 16:56 O2 Del Method Room Air 04/03/23 16:56 Pertinent Lab Results Pertinent Lab Results: Laboratory Tests 04/02/23 21:41 WBC 13.4 H RBC 5.64 Hgb 15.4 Hct 46.2 MCV 81.9 MCH 27.3 MCHC 33.3 RDW 13.3 Plt Count 260 MPV 9.1 L Immature Gran % (Auto) 0.6 H Neut % (Auto) 82.0 H Lymph % (Auto) 9.4 L [place] % (Auto) 7.2 Eos % (Auto) 0.7 Baso % (Auto) 0.1 Lymph # (Auto) 1.3 [place] # (Auto) 1.0 Eos # (Auto) 0.1 Baso # (Auto) 0.0 Abs Immat Gran (auto) 0.08 H Absolute Neuts (auto) 11.0 H Absolute Nucleated RBC 0.000 Nucleated RBC % (auto) 0.0 Sodium 137 Potassium 4.5 Chloride 103 Carbon Dioxide 23 Anion Gap 16 BUN 14 Creatinine 1.50 H Estim Creat Clear Calc 83.5 Estimated GFR 50 Random Glucose 129 H Calcium 10.0 Total Bilirubin 0.9 Direct Bilirubin 0.3 AST 34 ALT 29 Alkaline Phosphatase 61 Total Protein 8.6 H Albumin 4.6 Lipase 15 Urine Color Yellow Urine Appearance Clear Urine pH 5.5 Ur Specific [place] 1.025 Urine Protein Trace Urine Glucose (UA) Negative Urine Ketones Negative Urine Blood Moderate (2+) H Urine Nitrite Negative Ur Leukocyte Esterase Negative Urine RBC 3-5 H Urine WBC 0-5 Ur Squamous Epith Cells 3-5 Urine Bacteria None Seen Hyaline Casts 0-2 Airway Mallampati Class: II TM Dist: >3cm Neck ROM: Full Assessment and Plan Assessment Anesthesia Assessment: Anesthesia Plan Discussed and Chart Reviewed Final Anesthetic Review Family History of Problems with Anesthesia: No History of Problems with Anesthesia: No NPO: Yes ASA Class: II and Emergency Final Preanesthetic Review: No Changes in Pt Med Stat, Meds/Allgs Chart Reviewed, Consent Obtained/Reviewed and Anes Risks/Benef Reviewed Patient Risk: Intermediate Procedure Risk: Low Anesthetic Plan Anesthetic Plan: GA Disposition: Standard PACU
--- NOTE | 2023-04-03 18:19 | P.OP_ITS ---
Operative Note Operative Note Date of Service: 04/03/23 Narrative: PreOperative Diagnosis: left distal ureteric stones Post Operative Diagnosis: left distal ureteric stone Procedure: - cystoscopy, left retrograde - left dilatation of ureteric orifice under fluoroscopy - left ureteroscopy, laser lithotripsy, stone basketing - left stent placement Surgeon: Dr Derrick Poon Anesthesia: General Indications for procedure: 2 left distal ureteric stones Procedure: After informed consent was verified the patient was brought to the operating room and placed in a supine position. Anesthesia was administered per protocol. The patient was placed in a modified dorsal lithotomy position and prepped and draped in a sterile fashion. Safety pause time-out and side of surgery were confirmed. Images were available for review. Antibiotic administration confirmed. A 22 [place] cystoscope was inserted per urethra. The urethra was without abnormality. The bladder was normal in its entirety. Both ureteric orifices were seen in normal position. The left ureteric orifice was cannulated and a retrograde examination was performed. filling defects seen in distal portion of ureter . A Sensor guidewire was placed up to the level of the renal pelvis under fluoroscopy. The rigid cystoscope was removed. A Jose dilator was placed over the Sensor guidewire and used to dilate the ureteric orifice under fluoroscopy. The dilator was removed. The semi rigid ureteral scope was placed alongside the Sensor guidewire. stones encountered approximately 2-1/2 inches from ureteric orifice. Using a 365 micro holmium laser fiber the stone was broken into small pieces using a combination of hammer and dusting techiques. Stone fragments were removed from the ureter using a 3.0 flat wire basket. Once the fragments were removed a decision was made to place a ureteric stent. Based on the height of the patient a 6 Fr x variable length stent was used. The string was removed from the stent prior to placement The rigid cystoscope was backloaded over the wire and advanced into the bladder. A 6 [place] by variable length cm double-J stent was placed into the renal pelvis and bladder under a combination of fluoroscopy and direct visualization. The bladder was emptied. The patient tolerated the procedure well and was extubated in the operating room. They were transferred in stable condition to the recovery area. Pathology: stones Drains: Double J stent as described above
[2023-04-03] MEDS: Phenazopyridine HCL 100 MG TABLET PO (19:10)
[2023-04-03] MEDS: traMADoL HCL 50 MG TABLET PO (19:10)
--- NOTE | 2023-04-03 19:13 | PC.NURSE ---
PATIENT AMBULATED TO BATHROOM TO VOID REPORTS BURNING AND PAIN WITH URINATION. LEFT FLANK PAIN. MEDICATED FOR PAIN. TOLERATED PO FLUIDS.
[2023-04-10 19:28] LABS: Stone Source KIDNEY STONE
== END 2023-04-03 19:15 | disposition home or self-care (01) ==
LOC: HO.ED 04-03 16:49 → HO.SSS 04-03 17:17
PROVIDERS: Physician Assistant Medical; Urology; Emergency Provider Emergency Medicine; PCP Internal Medicine Medical Oncology; Visit Provider Emergency Medicine
PROC: (CPT 52356; principal; 2023-04-03 17:40)
DX: N20.1 Calculus of ureter (principal); K21.9 Gastro-esophageal reflux disease without esophagitis; Z87.442 Personal history of urinary calculi; Z79.899 Other long term (current) drug therapy
CPT/HCPCS: 52356; 36415; 74176; 80048; 80076; 81001; 82365; 83690; 85025; 88300; 96361; 96374; 96375; 96376; 99285; C1758; C1769; C2617; J0131; J1100; J1170; J1885; J1956; J2250; J2405; J3010; Q9967

== ENCOUNTER → 2023-04-02 21:40 | Outpatient (BNV) | payer OTHER, SELFPAY | PROVIDERS: Emergency Provider Emergency Medicine; PCP Internal Medicine Medical Oncology; Visit Provider Urology | DX: N20.1 Calculus of ureter (principal) | CPT/HCPCS: 52356; 74420; 99284 ==

== ENCOUNTER 2023-04-10 08:35 | Outpatient (AMB) | payer OTHER, SELFPAY ==
--- NOTE | 2023-04-10 08:36 | A.OFFVIS_ITS ---
Intake Intake Visit Reasons: cysto/stent removal Intake Note: Patient presents for Cysto/Stent Removal Urology Medications: none Blood Thinner: none Room Manager Required: No Accompanied by: Self / Same As Patient Allergies No Known Allergies Allergy (Verified 04/10/23 22:51) Medication List - Last Reconciled 04/10/23 by KENDRICK Barnett naproxen 500 mg PO BID PRN 7 days omeprazole 40 mg PO DAILY PRN phenazopyridine (Pyridium) 100 mg PO TID PRN 4 days tamsulosin 0.4 mg PO BEDTIME 14 days tramadol 50 mg PO Q6H PRN HPI HPI Comments History of Present Illness Details Damaso is a very pleasant 47-year-old male patient of . He has a past medical history of GERD and nephrolithiasis. He presents to the office today for a cystoscopy left-sided stent removal. It appears patient underwent surgical intervention of left distal ureteric stone on 04/03/[address] Poon. Patient status post cystoscopy, left retrograde, left dilatation of ureteric orifice under floor cause could be, left ureteroscopy, laser lithotripsy, stone basketing, and left stent placement When asked patient reports to be doing and feeling well. He reports a longstanding history of nephrolithiasis with previous surgical interventions. He reports previously following up with in the past. He discusses prior to this past surgical intervention with Dr. Poon his last surgical intervention was approximately 7 years ago. In office cystoscopy performed and left ureteral stent was removed. The patient tolerated the procedure well. Discussed, educated, and stressed the importance of drinking plenty of water daily. Discussed adding 1 oz of lemon juice to water daily. In office urinalysis results reviewed with the patient today. He otherwise offers no other issues or concerns at this time. 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 Review of Systems Const All systems reviewed & are unremarkable except as noted in HPI and below Eyes Reports no additional complaints ENT Reports no additional complaints Card Reports no additional complaints Resp Reports no additional complaints GI Reports as per HPI Reports as per HPI Musc Reports no additional complaints Neuro Reports no additional complaints Psych Reports no additional complaints Endo Reports no additional complaints Pantera/Lymph Reports no additional complaints Aller/Immun Reports no additional complaints Physical Exam Const General: cooperative, healthy appearing, comfortable, no acute distress, well developed, alert and awake Nutritional Appearance: overweight Orientation/consciousness: patient oriented x3 Limitations: no limitations HEENT Head: Yes normal to inspection, Yes normocephalic and Yes atraumatic Ears: hearing grossly normal bilaterally Eyes General: appearance normal, both eyes and all related structures Neck Neck: Yes normal visual inspection and Yes trachea midline Chest Chest palpation & inspection: normal inspection of the chest Resp Effort & Inspection: normal respiratory effort and able to speak in complete sentences Cardio Rate: regular rate GI Other: round Inspection: Yes normal to inspection General: Yes no CVA tenderness Male General Exam: Yes normal external exam Penis: normal penis and circumcised Meatus: meatus normal Back/Spine/Pelvis Back: no CVA tenderness Skin General skin exam: no rashes or lesions noted Neuro General: patient oriented x3 Extrem General: Yes normal to inspection Psych Appearance: grossly normal and well kempt Mental Status: mental status grossly normal Speech and movement: Normal speech and movement present and Clear speech present Affect: normal affect Attitude: cooperative Thought process: Normal thought process present Thought content: Normal thought content present Insight: Fair insight present (Psych) Judgement: Fair judgement present (Psych) Office Procedures Cystoscopy Consent Discussed risk and benefit or proposed procedure with the patient. Information consent for procedure given to the patient. Discussed technical aspects, risks, benefits and alternatives in full. Addressed all of the patient's questions and concerns regarding the procedure. The patient demonstrated knowledge and understanding. They wish to proceed with this procedure. Preparation The patient was prepped in the usual manner. A general foundry worker was present and in the room. Genitalia was prepped with betadine solution in a sterile manner. Lidocaine Jelly 2% was placed into the urethra and 16Fr flexible Olympus cystoscope was inserted into the meatus after adequate lubrication. 32821-Mbeddbrlyu with stent removal DISPOSABLE SCOPE URO-G FLEXIBLE SCOPE Procedure code (CPT) selection complete Cystoscopy Consent Discussed risk and benefit or proposed procedure with the patient. Information consent for procedure given to the patient. Discussed technical aspects, risks, benefits and alternatives in full. Addressed all of the patient's questions and concerns regarding the procedure. The patient demonstrated knowledge and understanding. They wish to proceed with this procedure. Preparation The patient was prepped in the usual manner. A general foundry worker was present and in the room. Genitalia was prepped with betadine solution in a sterile manner. Lidocaine Jelly 2% was placed into the urethra and 16 FR cystoscope was inserted into the meatus after adequate lubrication. Procedure A well lubricated 16 Maldivian cystoscope was placed No abnormality noted of urethra during placement Indwelling stent seen within bladder emerging from left ureteric orifices The stent was grasped with a 3 prong grasper and removed without difficulty The patient tolerated the procedure well. 62593-Wasksqtuhk with stent removal Procedure code (CPT) selection complete Office Meds lidocaine HCl 2 % mucosal jelly in applicator Performing Provider: KENDRICK Barnett Performing Location: [facility] – [place] [facility] Administered by: Brian Lyn LPN on 04/10/23 09:01 Dose Route Admin Location Dispensed Lot Number Expiration Date [facility] [place] Engineer Of System [employer] 10 mL intra-urethral 10 mL nitrofurantoin monohydrate/macrocrystals 100 mg capsule Performing Provider: KENDRICK Barnett Performing Location: [facility] – [place] [facility] Administered by: Brian Lyn LPN on 04/10/23 09:01 Dose Route Admin Location Dispensed Lot Number Expiration Date [facility] [place] Engineer Of System Development 100 mg PO 1 cap naproxen 500 mg tablet Performing Provider: KENDRICK Barnett Performing Location: [facility] – [place] [facility] Administered by: Brian Lyn LPN on 04/10/23 09:01 Dose Route Admin Location Dispensed Lot Number Expiration Date [facility] [place] Engineer Of System Development 500 mg PO 1 tab Results AMB Urinalysis, Automated UA Leukoctes 70 Emilia/uL Last Edit by Garth Roberts on 04/10/23 09:01 UA Nitrite Negative Last Edit by Garth Roberts on 04/10/23 09:01 UA Urobilinogen 0.2 mg/dL Last Edit by Garth Roberts on 04/10/23 09:01 UA Protein 300 mg/dL Last Edit by Garth Roberts on 04/10/23 09:01 UA pH 6.0 Last Edit by Garth Roberts on 04/10/23 09:01 UA Blood 200 Burak/uL Last Edit by Garth Smithjenny on 04/10/23 09:01 UA Specific [place] 1.030 Last Edit by Garth Smithjenny on 04/10/23 09:01 UA Ketone Negative Last Edit by Garth Smithjenny on 04/10/23 09:01 UA Bilirubin 1 mg/dL Last Edit by Garth Smithjenny on 04/10/23 09:01 UA Glucose 0 mg/dL Last Edit by Garth Smithjenny on 04/10/23 09:01 Results Reviewed Results Reviewed: Laboratory Last Values Urine pH (Auto) 6.0 04/10/23 08:41 Specific [place] (Auto) 1.030 04/10/23 08:41 Urine Protein (Auto) 300 mg/dL 04/10/23 08:41 Glucose (UA)(Auto) 0 mg/dL 04/10/23 08:41 Urine Ketones (Auto) Negative 04/10/23 08:41 Urine Blood (Auto) 200 Burak/uL 04/10/23 08:41 Urine Nitrite (Auto) Negative 04/10/23 08:41 Urine Bilirubin (Auto) 1 mg/dL 04/10/23 08:41 Urine Urobilinogen (Auto) 0.2 mg/dL 04/10/23 08:41 Leukocyte Esterase (Auto) 70 Emilia/uL 04/10/23 08:41 Assessment & Plan Assessment & Plan (1) Nephrolithiasis: Code(s): N20.0 - Calculus of kidney Plan In office urinalysis results reviewed with the patient today; as noted above. Cystoscopy performed and left ureteral stent removed Discussed, educated, encouraged on the importance of drinking plenty of water daily. Continue adding 1 oz of lemon juice to water daily. Will obtain renal ultrasound in 3 months. Follow-up in 3 months with imaging to be completed prior; or sooner with any issues, concerns, and or questions. Orders: Orders AMB Urinalysis Automated 04/10/23 Z13.9 - Encounter for screening, unspecified US renal BI 3 Months N20.0 - Calculus of kidney AMB Cystoscopy 04/10/23 N20.1 - Calculus of ureter Medications: Discontinued tramadol Discontinued Reason: Patient Completed Course 50 mg PO Q6H PRN 8 tabs 0RF pain (scale score 1-3) phenazopyridine (Pyridium) Discontinued Reason: Doctor's Order 100 mg PO TID 4 days PRN 12 tabs 0RF Spasm Patient Instructions: The patient had an opportunity to ask questions regarding the treatment plan. All questions were answered. Physical exam, labs, and imaging were discussed and reviewed in detail. As well as risks, benefits, and discussion of treatment choices. No major barriers to understanding were identified. The patient expressed understanding and agreement with the above treatment plan. The patient was made aware they should contact our office by phone for worsening of their current condition, the appearance of new symptoms, or with any questions or concerns. Compliance is encouraged with any medications and follow up testing that is ordered. It is a privilege to be allowed the opportunity to participate in? your urological care.? Again, if you have any questions or concerns If you have any questions or concerns please do not hesitate to contact me. The office is [phone]. This note is constructed using voice recognition software. While every effort has been made to ensure accuracy die sizer errors may have been included. Yours sincerely, KENDRICK Barnett Coding Level of Care Code Est Pt Level 3 (44875) Diagnoses Nephrolithiasis N20.0 CPT Codes Cystoscopy - CPT: 02791-Exjpxwckme with stent removal ([id number]) Cystoscopy - CPT: 94818-Fhsxsakwvr with stent removal ([id number])
== END 2023-04-10 09:55 | disposition home or self-care (01) ==
PROVIDERS: PCP Internal Medicine Medical Oncology; Visit Provider Nurse Practitioner Family
DX: N20.0 Calculus of kidney (principal)
CPT/HCPCS: 52310; 99213

== ENCOUNTER 2023-04-10 10:51 | Outpatient (AMB) | payer OTHER, SELFPAY ==
--- NOTE | 2023-04-10 10:55 | MHC.OFFVIS ---
Intake Intake Visit Reasons: New Prob - Lower Back Pain Intake Note: Damaso is a 47 year old male who presents today for a new problem visit with complaints of low back pain as well as numbness & tingling of lower left extremity. He reports that these symptoms have been present for about a year now. The left leg falls asleep and give out on him, this happens about 1-2 times a day. Reports an injury many years ago when a TV fell onto his back . Allergies No Known Allergies Allergy (Verified 04/10/23 11:03) Medication List - Last Reconciled 04/10/23 by Indira Best MD naproxen 500 mg PO BID PRN 7 days omeprazole 40 mg PO DAILY PRN phenazopyridine (Pyridium) 100 mg PO TID PRN 4 days tamsulosin 0.4 mg PO BEDTIME 14 days tramadol 50 mg PO Q6H PRN HPI HPI Comments History of Present Illness Details Had gone from Urology this morning, stent removal. History of kidney/ureteral stones. Recently seen in the ER. This is NOT the same side where he has back pain. Back pain since HS. Played football in HS. Plays golf now. 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 Midline back pain. When severe, needs to walk hunched back. Goes more to the right side, pressure pain on both hips down to knees. When walking, could suddenly feel numbness on left leg down to foot dorsum. 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 Review of Systems Const All systems reviewed & are unremarkable except as noted in HPI and below Physical Exam Constitutional: Patient appears to be in no acute distress, well nourished and well developed. Patient was appropriately conversant and oriented. Good historian. MSK: No specific abnormalities found on inspection of the spine and all extremities. Tightness noted on right lower thoracic and upper lumbar paraspinals. No tenderness in SI joint. Some soreness on left GT. Lumbar ROM was full. Bilateral hip, knee and ankle ROM WNL. No ligamentous laxity or crepitance. No increased effusion. Straight-leg raising test positive numbness on left? FABERE test negative. Gillet test is negative. Strength is 5/5 in all muscle groups tested. No increased tone noted. Neurological: Neurologic examination of the upper and lower extremities was nonfocal with intact sensation, muscle stretch reflexes and without focal motor deficits . Doan?s negative bilaterally. Babinski was down going bilaterally. Clonus was negative. Gait is non-antalgic without loss of balance. Can stand on heels and toes. Results AMB Urinalysis, Automated UA Leukoctes 70 Emilia/uL Last Edit by [email or web address] on 04/10/23 09:01 UA Nitrite Negative Last Edit by [email or web address] on 04/10/23 09:01 UA Urobilinogen 0.2 mg/dL Last Edit by [email or web address] on 04/10/23 09:01 UA Protein 300 mg/dL Last Edit by [email or web address] on 04/10/23 09:01 UA pH 6.0 Last Edit by [email or web address] on 04/10/23 09:01 UA Blood 200 Burak/uL Last Edit by [email or web address] on 04/10/23 09:01 UA Specific [place] 1.030 Last Edit by [email or web address] on 04/10/23 09:01 UA Ketone Negative Last Edit by [email or web address] on 04/10/23 09:01 UA Bilirubin 1 mg/dL Last Edit by [email or web address] on 04/10/23 09:01 UA Glucose 0 mg/dL Last Edit by [email or web address] on 04/10/23 09:01 Results Reviewed Results Reviewed: I independently reviewed the results of the following: Lumbar x-ray done in the office-preserved disc spaces. Question decreased joint space between T12-L1. I reviewed records from the following: Recent visit Ortho for knee pain. Recent ER visit for ureteral and kidney stones. Referred to Ortho for preop Assessment & Plan Assessment & Plan (1) Lumbar radiculitis: Code(s): M54.16 - Radiculopathy, lumbar region (2) Lumbar paraspinal muscle spasm: Code(s): M62.830 - Muscle spasm of back (3) Thoracic back pain: Code(s): M54.6 - Pain in thoracic spine Qualifiers: Chronicity: chronic Back pain laterality: midline Qualified Code(s): M54.6 - Pain in thoracic spine; G89.29 - Other chronic pain Plan On exam he has lower thoracic/upper lumbar paraspinal spasm left side. This could cause his axial back pain. Concern for left-sided leg numbness with walking. Sending him back to x-ray to do thoracic spine two views at least. Better evaluate the disc spaces T12-L1. Referring him to either therapy or chiropractor. We may need to get further imaging such as MRI. Assessment and plan discussed with patient, and patient was agreeable. All questions were answered thoroughly. Follow-up 6 weeks. We will contact him after official reading of x-rays done. Indira Best MD, MANSI Board Certified, [place] [employer] and Rehabilitation (ABPMR) Board Certified, [place] Board [employer] Electrodiagnostic [employer] (ABEM) Orders: Orders XR thoracic spine 2V Today M54.16 - Radiculopathy, lumbar region, M54.6 - Pain in thoracic spine, M62.830 - Muscle spasm of back XR lumbar spine 2-3V Today M54.9 - Dorsalgia, unspecified Referrals Chiropractic Referral M54.16 - Radiculopathy, lumbar region, M54.6 - Pain in thoracic spine, M62.830 - Muscle spasm of back Coding Level of Care Code New Pt Level 4 (71078) Diagnoses Lumbar radiculitis M54.16 Lumbar paraspinal muscle spasm M62.830 Chronic midline thoracic back pain M54.6; G89.29 Chronicity: chronic Back pain laterality: midline
== END 2023-04-10 11:37 | disposition home or self-care (01) ==
PROVIDERS: PCP Internal Medicine Medical Oncology; Visit Provider Physical Medicine & Rehabilitation
DX: M54.16 Radiculopathy, lumbar region (principal); M62.830 Muscle spasm of back; M54.6 Pain in thoracic spine; G89.29 Other chronic pain
CPT/HCPCS: 99204

== ENCOUNTER 2023-04-10 11:20 | Outpatient (REF) | payer OTHER, SELFPAY ==
--- NOTE | ~2023-04-10 | XR_ITS ---
EXAMINATION: XR THORACIC SPINE XR LUMBAR SPINE CLINICAL INFORMATION: Back pain. COMPARISON: Lumbar spine and chest 02/19/2012 TECHNIQUE: 2 views of the thoracic spine. 3 views of the lumbar spine. FINDINGS: LUMBAR SPINE: Slight rightward curvature of the lumbar spine. Facet arthritis in the lower lumbar spine. Mild multilevel lumbar spondylosis. Lumbar disc space heights are essentially preserved. THORACIC SPINE: Slight rightward curvature of the thoracic spine. Mild multilevel degenerative change with hypertrophic change in the thoracic spine. Bones are diffusely demineralized. Limited visualization due to overlying soft tissues. XR/XR thoracic spine 2V IMPRESSION: Mild multilevel lumbar spondylosis. Mild multilevel degenerative changes in the thoracic spine.
--- NOTE | ~2023-04-10 | XR_ITS ---
EXAMINATION: XR THORACIC SPINE XR LUMBAR SPINE CLINICAL INFORMATION: Back pain. COMPARISON: Lumbar spine and chest 02/19/2012 TECHNIQUE: 2 views of the thoracic spine. 3 views of the lumbar spine. FINDINGS: LUMBAR SPINE: Slight rightward curvature of the lumbar spine. Facet arthritis in the lower lumbar spine. Mild multilevel lumbar spondylosis. Lumbar disc space heights are essentially preserved. THORACIC SPINE: Slight rightward curvature of the thoracic spine. Mild multilevel degenerative change with hypertrophic change in the thoracic spine. Bones are diffusely demineralized. Limited visualization due to overlying soft tissues. XR/XR lumbar spine 2-3V IMPRESSION: Mild multilevel lumbar spondylosis. Mild multilevel degenerative changes in the thoracic spine.
== END 2023-04-10 11:21 | disposition home or self-care (01) ==
LOC: HO.HOSX 11:20
PROVIDERS: Visit Provider Physical Medicine & Rehabilitation
DX: M54.16 Radiculopathy, lumbar region (principal); M62.830 Muscle spasm of back; M54.6 Pain in thoracic spine; G89.29 Other chronic pain; N20.0 Calculus of kidney
CPT/HCPCS: 52310; 72070; 72100; 81003

== ENCOUNTER 2023-04-24 08:40 | Outpatient (AMB) | payer OTHER, SELFPAY ==
[2023-04-24 08:47] VITALS: BMI 31.9
--- NOTE | 2023-04-24 08:47 | A.OFFVIS_ITS ---
Intake Vital Signs 04/24/23 08:47 Height 6 ft 3 in Weight 255 lb BMI 31.9 Intake Visit Reasons: OV - left knee pain Intake Note: Damaso a 47 year old male presents today for a follow up of left knee. Patient reports he continues to have knee pain and is requesting a cortisone injection. Allergies No Known Allergies Allergy (Verified 04/24/23 08:52) HPI OV - left knee pain HPI Details 47-year-old male who returns to the [facility] today for a follow-up of left knee pain. He continues to have pain in his left knee and reports having no relief since his last visit. He would like to have a left knee cortisone injection today. He does not have a history of diabetes. 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 Review of Systems Const All systems reviewed & are unremarkable except as noted in HPI and below Physical Exam Vital Signs: BMI result Body Mass Index 31.9 Extrem Other: Left knee: Skin intact, no erythema or joint effusion. Tenderness along the medial joint line. Full ROM with crepitus. Positive Damian?s. No ligamentous laxity. NVI. Office Procedures Joint Injection/Drain Joint Injection/Drain Primary Site: left knee Prep: site was prepped using aseptic technique, ethochloride spray was applied and injection warnings given Injected: 80 mg of, DepoMedrol, with 8 mL of, 1% plain lidocaine and in the joint Approach Used: anterolateral Procedure: The patient tolerated the procedure well and there was some relief with the local anesthesia Coding 74436 - Glenohumeral/Tronchanteric Bursa/Intraarticular Procedure code (CPT) selection complete Results Reviewed Results Reviewed: 04/24/23 08:49 Lidocaine HCl 2 % MPF [Xylocaine 2 % MPF] 5 ml .ROUTE .STK-MED ONE 04/24/23 08:50 methylPREDNISolone acetate [DEPO-MedroL] 80 mg .ROUTE .STK-MED ONE Assessment & Plan Assessment & Plan (1) Injury of meniscus of left knee: Code(s): S83.8X2A - Sprain of other specified parts of left knee, initial encounter Qualifiers: Encounter type: subsequent encounter Qualified Code(s): S83.8X2D - Sprain of other specified parts of left knee, subsequent encounter Plan We discussed options today which include steroid injection. They did consent to move forward with the left knee injection, which was tolerated well. I recommended rest, ice and elevation and OTC anti-inflammatories PRN for discomfort. An MRI of left knee has also been ordered in the office today. If symptoms persist or worsens over the next 6-8 weeks, patient will contact the office, otherwise follow-up as needed. Orders: Orders MR knee LT wo con Today M17.12 - Unilateral primary osteoarthritis, left knee Patient Instructions: Scribed for Kevin Wakefield PA-C, by Perfecto Cuellar medical front desk coordinator, on 04/24/2023 at 8:45 AM EST. IKevin PA-C, have personally reviewed and agree with the information entered by the scribe. Coding Level of Care Code Est Pt Level 3 (89864) Diagnoses Injury of meniscus of left knee, subsequent encounter S83.8X2D Encounter type: subsequent encounter CPT Codes Coding - Joint 7: 68662 - Glenohumeral/Tronchanteric Bursa/Intraarticular ([id number])
== END 2023-04-24 09:20 | disposition home or self-care (01) ==
PROVIDERS: PCP Internal Medicine Medical Oncology; Visit Provider Physician Assistant
DX: S83.8X2D Sprain of other specified parts of left knee, subsequent encounter (principal)
CPT/HCPCS: 20610; 99214

== ENCOUNTER → 2023-04-24 08:40 | Outpatient (BNVA) | payer OTHER, SELFPAY | PROVIDERS: PCP Internal Medicine Medical Oncology; Visit Provider Physician Assistant | DX: M17.12 Unilateral primary osteoarthritis, left knee (principal); S83.8X2D Sprain of other specified parts of left knee, subsequent encounter; X58.XXXD Exposure to other specified factors, subsequent encounter | CPT/HCPCS: 20610; J1040 ==

== ENCOUNTER 2023-05-29 09:18 | Outpatient (AMB) | payer OTHER, SELFPAY ==
[2023-05-29 09:33] VITALS: BMI 31.9
--- NOTE | 2023-05-29 09:33 | MHC.OFFVIS ---
Intake Vital Signs 05/29/23 09:33 Height 6 ft 3 in Weight 255 lb BMI 31.9 Intake Visit Reasons: Ov- Lower back pain Intake Note: Damaso presents today for his follow up visit for his lower back pain. States since last visit his pain has not improved and would like to discuss having an MRI study. Allergies No Known Allergies Allergy (Verified 04/24/23 08:52) HPI HPI Comments History of Present Illness Details History of kidney/ureteral stones. Recently seen in the ER. This is NOT the same side where he has back pain. Back pain since HS. Played football in HS. Plays golf now. 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 Midline back pain. When severe, needs to walk hunched back. Goes more to the right side, pressure pain on both hips down to knees. When walking, could suddenly feel numbness on left leg down to foot dorsum. Treatment done so far: NSAIDs Heating pad or put some pressure to make it feel therapy, chiropractor - last years ago Today he says pain is worse than the right. Both upper and lower back. Left leg feels numb. Right leg feels tingly. X-rays reviewed independently showed intact disc spaces both thoracic and lumbar. Report did mention hypertrophic changes on thoracic spine but poor visualization. He has not been able to do chiropractor since last time I saw him because the chiropractor went for surgery. He recently saw orthopedics for knee pain, had injection which seemed to have worsened the pain. Pending MRI of the knee. 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 Physical Exam Vital Signs: BMI result Body Mass Index 31.9 Constitutional: Patient appears to be in no acute distress, well nourished and well developed. Patient was appropriately conversant and oriented. Good historian. MSK: Yes tenderness on thoracic paraspinals, thoracic spinous processes upper and lower, and quadratus lumborum. Strength is 5/5 in all muscle groups tested. No increased tone noted. Neurological: Neurologic examination of the upper and lower extremities was nonfocal with intact sensation, muscle stretch reflexes and without focal motor deficits . Doan?s negative bilaterally. Babinski was down going bilaterally. Clonus was negative. Gait is non-antalgic without loss of balance. Results Reviewed Results Reviewed: Date of Service: 04/10/23 Procedure(s): XR thoracic spine 2V Accession Number(s): [id number] cc: Indira Philip~ EXAMINATION: XR THORACIC SPINE XR LUMBAR SPINE CLINICAL INFORMATION: Back pain. COMPARISON: Lumbar spine and chest 02/19/2012 TECHNIQUE: 2 views of the thoracic spine. 3 views of the lumbar spine. FINDINGS: LUMBAR SPINE: Slight rightward curvature of the lumbar spine. Facet arthritis in the lower lumbar spine. Mild multilevel lumbar spondylosis. Lumbar disc space heights are essentially preserved. THORACIC SPINE: Slight rightward curvature of the thoracic spine. Mild multilevel degenerative change with hypertrophic change in the thoracic spine. Bones are diffusely demineralized. Limited visualization due to overlying soft tissues. XR/XR thoracic spine 2V IMPRESSION: Mild multilevel lumbar spondylosis. Mild multilevel degenerative changes in the thoracic spine. Assessment & Plan Assessment & Plan (1) Thoracic back pain: Code(s): M54.6 - Pain in thoracic spine Qualifiers: Chronicity: chronic Back pain laterality: midline Qualified Code(s): M54.6 - Pain in thoracic spine; G89.29 - Other chronic pain (2) Lumbar paraspinal muscle spasm: Code(s): M62.830 - Muscle spasm of back (3) Lumbar radiculitis: Code(s): M54.16 - Radiculopathy, lumbar region Plan Difficult to localize where his pain is coming from. I do suspect he has myofascial pain affecting paraspinals and quadratus lumborum. Although I am concerned that he complains of numbness in his left leg and tingling on right leg, which may suggest lumbar radiculitis. He is willing to try physical therapy for now, referral placed. If not improve in the next few weeks after therapy, it would be reasonable to get an MRI. Just not sure if we need a thoracic or lumbar MRI. Assessment and plan discussed with patient, and patient was agreeable. All questions were answered thoroughly. Follow-up 4 weeks. Indira Best MD, MANSI Board Certified, [place] [employer] and [employer] (ABPMR) Board Certified, [place] [employer] (ABEM) Orders: Orders PT Evaluation and Treatment Today M54.16 - Radiculopathy, lumbar region, M54.6 - Pain in thoracic spine, M62.830 - Muscle spasm of back Coding Level of Care Code Est Pt Level 3 (22115) Diagnoses Chronic midline thoracic back pain M54.6; G89.29 Chronicity: chronic Back pain laterality: midline Lumbar paraspinal muscle spasm M62.830 Lumbar radiculitis M54.16
== END 2023-05-29 10:25 | disposition home or self-care (01) ==
PROVIDERS: PCP Internal Medicine Medical Oncology; Visit Provider Physical Medicine & Rehabilitation
DX: M54.6 Pain in thoracic spine (principal); G89.29 Other chronic pain; M62.830 Muscle spasm of back; M54.16 Radiculopathy, lumbar region
CPT/HCPCS: 99213

== ENCOUNTER → 2023-05-29 09:18 | Outpatient (BNVA) | payer OTHER, SELFPAY | PROVIDERS: PCP Internal Medicine Medical Oncology; Visit Provider Physical Medicine & Rehabilitation ==

== ENCOUNTER 2023-06-11 09:23 | Outpatient (REF) | payer OTHER, SELFPAY ==
--- NOTE | ~2023-06-11 | MR_ITS ---
EXAMINATION: MR KNEE WITHOUT CONTRAST, LEFT CLINICAL INFORMATION: Osteoarthritis. Patient reports left anterior knee pain. COMPARISON: X-ray of the left knee March 2023. TECHNIQUE: MRI of the knee without contrast was performed using routine sequences on a high-field scanner. FINDINGS: MENISCI: Medial Meniscus: Intact. Lateral Meniscus: Intact. LIGAMENTS: Cruciate: Intact. Collateral: Intact. EXTENSOR MECHANISM: Intact. ARTICULAR CARTILAGE/BONE: Patellofemoral Compartment: Normal. Medial Compartment: Normal. Lateral Compartment: Normal. JOINT FLUID AND BURSAE: Small to moderate-sized slightly complex Wharton's cyst. This measures up to 3.3 cm transverse, 2 cm AP and 7 cm craniocaudal. Proximal tibiofibular joint: There is a lobulated fluid collection abutting the anterior distal aspect of the joint compatible with a synovial recess or ganglion cyst. This measures up to 17 mm AP, 10 mm transverse and 24 mm craniocaudal. MR/MR knee LT wo con IMPRESSION: 1. Small to moderate-sized slightly complex Wharton's cyst. 2. Synovial recess versus ganglion cyst abutting the proximal tibiofibular joint.
== END 2023-06-11 09:24 | disposition home or self-care (01) ==
LOC: HO.MRI 09:23
PROVIDERS: PCP Internal Medicine Medical Oncology; Visit Provider Physician Assistant
DX: M17.12 Unilateral primary osteoarthritis, left knee (principal)
CPT/HCPCS: 73721

== ENCOUNTER 2023-07-15 11:44 | Outpatient (AMB) | payer OTHER, SELFPAY ==
[2023-07-15 11:45] VITALS: BMI 31.9
--- NOTE | 2023-07-15 11:45 | A.OFFVIS_ITS ---
Intake Vital Signs 07/15/23 11:45 Height 6 ft 3 in Weight 255 lb BMI 31.9 Intake Visit Reasons: Tele- MRI review Knee Intake Note: Damaso a 47 year old male scheduled for an MRI review of left knee via telephone. Allergies No Known Allergies Allergy (Verified 07/15/23 11:47) HPI Tele- MRI review Knee HPI Details 47-year-old male scheduled for an MRI re view of left knee via telephone. He states the injection helped for a brief period of time but then noticed his pain worsening with activity. 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 Review of Systems Const All systems reviewed & are unremarkable except as noted in HPI and below Physical Exam Vital Signs: BMI result Body Mass Index 31.9 Resp Effort & Inspection: normal respiratory effort and able to speak in complete sentences Results Reviewed Results Reviewed: MR knee LT wo con IMPRESSION: 1. Small to moderate-sized slightly complex Wharton's cyst. 2. Synovial recess versus ganglion cyst abutting the proximal tibiofibular joint. Assessment & Plan Assessment & Plan (1) Injury of meniscus of left knee: Code(s): S83.8X2A - Sprain of other specified parts of left knee, initial encounter Qualifiers: Encounter type: subsequent encounter Qualified Code(s): S83.8X2D - Sprain of other specified parts of left knee, subsequent encounter Plan MRI results were discussed with the patient. If he continues to have discomfort, we will repeat the injection and I would see him in 2 weeks for a left knee cortisone injection. Patient Instructions: Scribed for Kevin Wakefield PA-C, by Perfecto Cuellar resident medical officer, on 07/15/2023 at 11:30 AM EST. Kevin Mccarthy PA-C, have personally reviewed and agree with the information entered by the scribe. Coding Level of Care Code Tele Est Pt Level 3 (77189) Diagnoses Injury of meniscus of left knee, subsequent encounter S83.8X2D Encounter type: subsequent encounter
--- OUTSIDE RECORDS SUMMARY | 2023-07-15 11:46 | XMS_ITS | Patient Health Record ---
Author Name Unknown Organization Chente Villarreal III, MD Address [address] [address] Care Team Providers Care Animal Taxonomist Name Role Phone Chente Villarreal Primary Care Provider ALLERGIES No Known Allergies RESULTS Component Value Reference Range Notes Complete Blood Count Auto Di ff Reviewed date:10/02/2022 06:00:08 AM Interpretation: Performing Lab:[facility], [address] [place] [phone] Notes/Report: White Blood Count 8.3 4.8-10.8 X10*3/uL Red Blood Count 5.27 4.60-5.80 X10*6/uL Hemoglobin 14.4 14.0-18.0 g/dl Hematocrit 44.0 42.0-52.0 % Mean Corpuscular Volume 83.5 80.0-98.0 fL Mean Corpuscular Hemoglobin 27.3 27.0-33.0 pg Mean Corpuscular HGB Conc 32.7 31.0-36.0 g/dl Red Cell Distribution Width 13.4 11.0-16.0 % Platelet Count 267 160-400 X10*3/uL Mean Platelet Volume 9.4 9.4-12.4 fL Neutrophils Percent Auto 53.2 45-73 % Imm Gran Pct Auto 0.4 0.0-0.4 % Lymphocytes Percent Auto 33.9 20-40 % Monocytes Percent Auto 7.6 2-11 % Eosinophils Percent Auto 4.3 0-4 % Basophils Percent Auto 0.6 0-2 % NRBC Pct Auto 0.0 0.0-0.2 /100WBC Neutrophils Absolute Auto 4.4 2.0-8.3 x10*3/u L Imm Gran Abs Auto 0.03 0.00-0.03 X10*3/uL Lymphocytes Absolute Auto 2.8 1.2-4.9 X10*3/u L Monocytes Absolute Auto 0.6 0.1-1.2 X10*3/uL Eosinophils Absolute Auto 0.4 0.0-0.4 X10*3/u L Basophils Absolute Auto 0.1 0.0-0.2 X10*3/uL NRBC Abs Auto 0.000 0.0-0.012 X10*3/uL Erythrocyte Sedimentation Ra te Reviewed date:10/02/2022 06:00:08 AM Interpretation: Performing Lab:[facility], [address] [place] [phone] Notes/Report: Erythrocyte Sedimentation Rate 3 0-15 MM/HR Patients with polycythemia and many hemoglobin abnormalities may have depressed sed rates whereas patients with anemia may have elevated sed rates. Comprehensive Met. Panel Reviewed date:10/02/2022 06:00:08 AM Interpretation: Performing Lab:[facility], [address] [place] [phone] Notes/Report: Sodium 141 135-145 mmol/L Potassium 4.2 3.3-5.1 mmol/L Chloride 107 96-108 mmol/L Carbon Dioxide 28 22-29 mmol/L Anion Gap 10 12-20 Blood Urea Nitrogen 14 9-16 mg/dL Creatinine 1.38 0.5-1.4 mg/dL Creatinine Clr Calc Pharmacy 91.4 eGFR (calculated from the MDRD study equation) and eCrCl (calculated from the Cockcroft-Gault equation) are based on different parameters and may not yield comparable results. If eCrCl result is absurd, please check patient's height/weight. Estimated Glomerular Filt Rate 55 NOTE: For -[place] individuals, multiply the result by 1.210. Chronic Kidney Disease: Estimated GFR < 60 mL/min/1.73m2 Severe Kidney Disease: Estimated GFR < 15 mL/min/1.73m2 Glucose Random 89 60-115 mg/dL Calcium 9.3 8.4-10.2 mg/dL Bilirubin Total 0.9 0.0-1.0 mg/dL Aspartate Amino Transferase 29 5-37 U/L Alanine Aminotransferase 36 0-40 U/L Total Protein 7.2 6.5-8.0 g/dL Albumin Level 4.3 3.5-5.0 g/dL Alkaline Phosphatase 55 39-117 U/L URINE DIP STICK Reviewed date:01/18/2023 02:26:27 PM Interpretation: Performing Lab: Notes/Report: SG 1.025 1.005 - 1.025 pH 5.0 5.0 - 9.0 SILVER Negative Negative - NIT Negative Negative - PRO 15 Negative - Trace GLU Negative Negative - KET Negative Negative - UBG 0.2 0.1 - 1.8 WHIT Negative 0.2 - 1.3 BLD Negative Negative - Menstrating N/A Complete Blood Count Auto Di ff Reviewed date:05/17/2023 07:16:36 PM Interpretation: Performing Lab:[facility], [address] [place] [phone] Notes/Report: White Blood Count 6.5 4.8-10.8 X10*3/uL Red Blood Count 5.71 4.60-5.80 X10*6/uL Hemoglobin 15.5 14.0-18.0 g/dl Hematocrit 48.6 42.0-52.0 % Mean Corpuscular Volume 85.1 80.0-98.0 fL Mean Corpuscular Hemoglobin 27.1 27.0-33.0 pg Mean Corpuscular HGB Conc 31.9 31.0-36.0 g/dl Red Cell Distribution Width 13.4 11.0-16.0 % Platelet Count 260 160-400 X10*3/uL Mean Platelet Volume 9.7 9.4-12.4 fL Neutrophils Percent Auto 53.7 45-73 % Imm Gran Pct Auto 0.2 0.0-0.4 % Lymphocytes Percent Auto 31.2 20-40 % Monocytes Percent Auto 9.2 2-11 % Eosinophils Percent Auto 4.9 0-4 % Basophils Percent Auto 0.8 0-2 % NRBC Pct Auto 0.0 0.0-0.2 /100WBC Neutrophils Absolute Auto 3.5 2.0-8.3 x10*3/u L Imm Gran Abs Auto 0.01 0.00-0.03 X10*3/uL Lymphocytes Absolute Auto 2.0 1.2-4.9 X10*3/u L Monocytes Absolute Auto 0.6 0.1-1.2 X10*3/uL Eosinophils Absolute Auto 0.3 0.0-0.4 X10*3/u L Basophils Absolute Auto 0.1 0.0-0.2 X10*3/uL NRBC Abs Auto 0.000 0.0-0.012 X10*3/uL Comprehensive [place]. Panel Fa st Reviewed date:05/17/2023 07:16:36 PM Interpretation: Performing Lab:[address] [phone] Notes/Report: Sodium 141 135-145 mmol/L Potassium 4.0 3.3-5.1 mmol/L Chloride 106 96-108 mmol/L Carbon Dioxide 25 22-29 mmol/L Anion Gap 14 12-20 Blood Urea Nitrogen 13 9-16 mg/dL Creatinine 0.96 0.5-1.4 mg/dL Estimated Glomerular Filt Rate > 60 NOTE: For -[place] individuals, multiply the result by 1.210. Chronic Kidney Disease: Estimated GFR < 60 mL/min/1.73m2 Severe Kidney Disease: Estimated GFR < 15 mL/min/1.73m2 Glucose Fasting 116 60-99 mg/dL A fasting glucose from 100-125 mg/dl is considered impaired (pre-diabetes). Calcium 9.8 8.4-10.2 mg/dL Bilirubin Total 0.9 0.0-1.0 mg/dL Aspartate Amino Transferase 22 5-37 U/L Alanine Aminotransferase 28 0-40 U/L Total Protein 7.7 6.5-8.0 g/dL Albumin Level 4.2 3.5-5.0 g/dL Alkaline Phosphatase 60 39-117 U/L Magnesium Reviewed date:05/17/2023 07:16:36 PM Interpretation: Performing Lab:[facility], [address] [place] [phone] Notes/Report: Magnesium 2.0 1.6-2.6 mg/dL Lipid Panel Reviewed date:05/17/2023 07:16:36 PM Interpretation: Performing Lab:[facility] [address] [address] Notes/Report: Triglycerides 118 Desirable Triglyceride: less than 150 mg/dL Borderline High Triglyceride 150-199 mg/dL High Triglyceride: 200-499 mg/dL Very High Triglyceride: greater than or equal to 5OO mg/dL Cholesterol 182 Desirable Cholesterol: less than 200 mg/dL Borderline High Cholesterol: 200-239 mg/dL High Cholesterol: greater than 239 mg/dL LDL Cholesterol Calculated 112 Desirable LDL: less than 100 mg/dL Near Optimal/Above Optimal LDL: 110-129 mg/dL Borderline High LDL: 130-159 mg/dL High LDL: 160-189 mg/dL Very High LDL: greater than or equal to 190 mg/dL HDL Cholesterol 47 Desirable HDL: greater than 40 mg/dL Note: This HDL assay may give artificially low results in patients with liver disease. Prostate Specific Antigen Reviewed date:05/17/2023 07:16:36 PM Interpretation: Performing Lab:[address] [phone] Notes/Report: Prostate Specific Antigen 0.54 <0.05-4.0 ng/mL PSA methodology: St Alinity i Chemiluminescent Microparticle Immunoassay (CMIA) Complete Blood Count Auto Di ff Reviewed date:05/17/2023 07:16:36 PM Interpretation: Performing Lab:[address] [phone] Notes/Report: White Blood Count 13.4 4.8-10.8 X10*3/uL Red Blood Count 5.64 4.60-5.80 X10*6/uL Hemoglobin 15.4 14.0-18.0 g/dl Hematocrit 46.2 42.0-52.0 % Mean Corpuscular Volume 81.9 80.0-98.0 fL Mean Corpuscular Hemoglobin 27.3 27.0-33.0 pg Mean Corpuscular HGB Conc 33.3 31.0-36.0 g/dl Red Cell Distribution Width 13.3 11.0-16.0 % Platelet Count 260 160-400 X10*3/uL Mean Platelet Volume 9.1 9.4-12.4 fL Neutrophils Percent Auto 82.0 45-73 % Imm Gran Pct Auto 0.6 0.0-0.4 % Lymphocytes Percent Auto 9.4 20-40 % Monocytes Percent Auto 7.2 2-11 % Eosinophils Percent Auto 0.7 0-4 % Basophils Percent Auto 0.1 0-2 % NRBC Pct Auto 0.0 0.0-0.2 /100WBC Neutrophils Absolute Auto 11.0 2.0-8.3 x10*3/u L Imm Gran Abs Auto 0.08 0.00-0.03 X10*3/uL Lymphocytes Absolute Auto 1.3 1.2-4.9 X10*3/u L Monocytes Absolute Auto 1.0 0.1-1.2 X10*3/uL Eosinophils Absolute Auto 0.1 0.0-0.4 X10*3/u L Basophils Absolute Auto 0.0 0.0-0.2 X10*3/uL NRBC Abs Auto 0.000 0.0-0.012 X10*3/uL Liver Panel Reviewed date:05/17/2023 07:16:36 PM Interpretation: Performing Lab:[address] [phone] Notes/Report: Bilirubin Total 0.9 0.0-1.0 mg/dL Bilirubin Direct 0.3 0.0-0.5 mg/dL Slight Hem olysis Aspartate Amino Transferase 34 5-37 U/L Slight Hemolysis Alanine Aminotransferase 29 0-40 U/L Total Protein 8.6 6.5-8.0 g/dL Albumin Level 4.6 3.5-5.0 g/dL Alkaline Phosphatase 61 39-117 U/L Basic Metabolic Panel Reviewed date:05/17/2023 07:16:36 PM Interpretation: Performing Lab:[address] [phone] Notes/Report: Sodium 137 135-145 mmol/L Potassium 4.5 3.3-5.1 mmol/L Slight Hemoly sis Chloride 103 96-108 mmol/L Carbon Dioxide 23 22-29 mmol/L Anion Gap 16 12-20 Blood Urea Nitrogen 14 9-16 mg/dL Creatinine 1.50 0.5-1.4 mg/dL Creatinine Clr Calc Pharmacy 83.5 eGFR (calculated from the MDRD study equation) and eCrCl (calculated from the Cockcroft-Gault equation) are based on different parameters and may not yield comparable results. If eCrCl result is absurd, please check patient's height/weight. Estimated Glomerular Filt Rate 50 NOTE: For -[place] individuals, multiply the result by 1.210. Chronic Kidney Disease: Estimated GFR < 60 mL/min/1.73m2 Severe Kidney Disease: Estimated GFR < 15 mL/min/1.73m2 Glucose Random 129 60-115 mg/dL Calcium 10.0 8.4-10.2 mg/dL Lipase Reviewed date:05/17/2023 07:16:36 PM Interpretation: Performing Lab:[facility], [address] [place] [phone] Notes/Report: Lipase 15 8-78 U/L UA ClnCatch+Micro w/rflx Cul t Reviewed date:05/17/2023 07:16:36 PM Interpretation: Performing Lab:[facility], [address] [place] [phone] Notes/Report: [id number] Urine, Clean Catch Color Urine Yellow Appearance Urine Clear PH 5.5 5.0-9.0 Glucose Urine UA Negative Negative mg/dL Urine Blood Moderate (2+) Negative Specific Wheeler - Urine 1.025 1.005-1.025 Urine Protein Trace Neg-Trace mg/dL Urine Ketones Negative Negative mg/dL Nitrite Urine Negative Negative Leukocyte Esterase Urine Negative Negative RBC Urine 3-5 0-2 /HPF WBC Urine 0-5 0-5 /HPF Squamous Epithelial Cell Urine 3-5 0-2 /HPF Bacteria Urine None Seen None Seen Hyaline Casts Urine 0-2 0-2 /LPF CT abdomen pelvis wo con Reviewed date:05/17/2023 07:16:36 PM Interpretation: Performing Lab: Notes/Report: [address] [address] [address] Scan Report Signed Patient: Damaso Irizarry MR#: [id number] : 1975 Acct:[id number] Age/Sex: 47 / M ADM Date: 04/02/23 Loc: .ED Attending Dr: Ordering Physician: Tabitha Mendez Date of Service: 04/02/23 Procedure(s): CT abdomen pelvis wo IV con Accession Number(s): [id number] cc: Chente Villarreal MD; Tabitha Mendez EXAMINATION: CT ABDOMEN AND PELVIS WITHOUT CONTRAST CLINICAL INFORMATION: Flank and abdominal pain COMPARISON: Previous CT of the abdomen and pelvis August 2014 TECHNIQUE: Multidetector volumetric imaging was performed from the superior aspect of the liver through the pubic symphysis. Sagittal and coronal reformatted images were obtained on the technologist's workstation. This CT examination was performed using dose optimization techniques as appropriate, variously including the following: *Automated exposure control *Adjustment of mA and/or kV according to patient size (this includes techniques or standardized protocols for targeted exams where dose is matched to indication/reason for exam; i.e. extremities or head) *Use of iterative reconstruction technique DLP: 776 mGy-cm FINDINGS: LUNG BASES: 4 mm left lower lobe nodule. LIVER, GALLBLADDER, AND BILIARY TREE: The liver is normal in size, shape, and attenuation. No focal hepatic lesion or biliary ductal dilatation is present. Gallstones. PANCREAS: Fatty infiltration of the head of the pancreas. SPLEEN: Unremarkable. ADRENAL GLANDS: Unremarkable. KIDNEYS AND URETERS: Mild left hydronephrosis and ureteral dilatation from 2 adjacent left kidney. Right kidney largest measuring 2 mm BLADDER: Unremarkable. GASTROINTESTINAL TRACT: The small and large bowel are unremarkable. The appendix is unremarkable. ABDOMINAL WALL: No significant hernia is appreciated. LYMPH NODES: Normal. VASCULAR: Unremarkable. PELVIC VISCERA: Unremarkable. OSSEOUS STRUCTURES: Unremarkable. CT/CT abdomen pelvis wo IV con IMPRESSION: Mild left hydronephrosis and ureteral dilatation from 2 adjacent left distal ureteral stones measuring 3 and 4 millimeters. Small bilateral renal stones. 4 mm left lower lobe nodule. According to the UPDATED 2017 Fleischner Society recommendations, the advised follow-up imaging for less than 6 mm solid nodule: Low risk, no chest CT follow-up and high risk, optional chest CT in 1 year. Fleischner guidelines were followed. Dictated By: Laine Lane MD Signed By: <Electronically signed by Laine Lane MD in OV> 04/02/232156 DD/ 14 TD/TT: Manufacturing Recruiter: ADIEL [facility] Reviewed date:05/17/2023 07:16:36 PM Interpretation: Performing Lab:[facility], [address] [place] [phone] Notes/Report: [id number] Component 1 SEE NOTE Calcium Oxalate Monohydrate (Whewellite) 95% Carbonate Apatite (Dahllite) 5% See Note 1 Stone Weight 0.057 Note 1 This test was developed and its analytical performance characteristics have been determined by [employer]. It has not been cleared or approved by the FDA. This assay has been validated pursuant to the CLIA regulations and is used for clinical purposes. THIS TEST WAS PERFORMED AT: [facility] [address] [address] CLARK TAMEZ MD [facility] Pathology Reviewed date:05/17/2023 07:16:36 PM Interpretation: Performing Lab:[facility], [address] [place] [phone] Notes/Report: FL guidance in OR Reviewed date:05/17/2023 07:16:36 PM Interpretation: Performing Lab: Notes/Report: [address] [address] Fluoroscopy Report Signed Patient: Damaso Irizarry MR#: [id number] : 1975 Acct:[id number] Age/Sex: 47 / M ADM Date: 04/03/23 Loc: HO.[facility] Attending Dr: Victoriano Smith MD Ordering Physician: Derrick Poon MD Date of Service: 04/03/23 Procedure(s): FL guidance in OR Accession Number(s): [id number] cc: Derrick Poon MD; Chente Villarreal MD EXAMINATION: XR FLUOROSCOPY WITH IMAGES CLINICAL INFORMATION: Cystoscopy. COMPARISON: None available. TECHNIQUE: Fluoroscopy Supervised By: Dr. Derrick Poon. Fluoroscopy Time: 26.2 seconds. Cumulative Dose: 18.05 mGy. DAP: Not available. Images: 3. FINDINGS: Images demonstrate a left internal ureteral stent in satisfactory position. FL/FL guidance in OR IMPRESSION: Fluoroscopy guidance for urology procedure Dictated By: Laine Lane MD Signed By: <Electronically signed by Laine Lane MD in OV> 04/10/23 3697 DD/ 1830 TD/TT: Manufacturing Recruiter: ADIEL GOLDSMITH knee LT wo con Reviewed date:06/12/2023 09:37:39 AM Interpretation: Performing Lab: Notes/Report: [address] [address] Magnetic Resonance Report Signed Patient: Damaso Irizarry MR#: [id number] : 1975 Acct:[id number] Age/Sex: 47 / M ADM Date: 06/11/23 Loc: HO.MRI Attending Dr: Kevin Wakefield PA-C Ordering Physician: Kevin Wakefield PA-C Date of Service: 06/11/23 Procedure(s): MR knee LT wo con Accession Number(s): [id number] cc: Chente Villarreal MD; Kevin Wakefield PA-C EXAMINATION: MR KNEE WITHOUT CONTRAST, LEFT CLINICAL INFORMATION: Osteoarthritis. Patient reports left anterior knee pain. COMPARISON: X-ray of the left knee March 2023. TECHNIQUE: MRI of the knee without contrast was performed using routine sequences on a high-field scanner. FINDINGS: MENISCI: Medial Meniscus: Intact. Lateral Meniscus: Intact. LIGAMENTS: Cruciate: Intact. Collateral: Intact. EXTENSOR MECHANISM: Intact. ARTICULAR CARTILAGE/BONE: Patellofemoral Compartment: Normal. Medial Compartment: Normal. Lateral Compartment: Normal. JOINT FLUID AND BURSAE: Small to moderate-sized slightly complex Wharton's cyst. This measures up to 3.3 cm transverse, 2 cm AP and 7 cm craniocaudal. Proximal tibiofibular joint: There is a lobulated fluid collection abutting the anterior distal aspect of the joint compatible with a synovial recess or ganglion cyst. This measures up to 17 mm AP, 10 mm transverse and 24 mm craniocaudal. MR/MR knee LT wo con IMPRESSION: 1. Small to moderate-sized slightly complex Wharton's cyst. 2. Synovial recess versus ganglion cyst abutting the proximal tibiofibular joint. Dictated By: Max Meeks MD Signed By: <Electronically signed by Max Meeks MD in OV> 06/11/23 1644 DD/ 1011 TD/TT: Manufacturing Recruiter: SARAH REASON FOR REFERRAL Reason bilateral ear pain Diagnosis 1 Otalgia, unspecified laterality (H92.09) Referral Organization Chente Villarreal III, MD Referring Provider First Name Chente Referring Provider Last Name Cherelle Referring Provider Speciality Internal M edicine Referred Provider MANDIE MOORE Referred Provider Specialty Otolaryngolo gy General Notes LindaAna Laura RIVET MAKER 09/22 03:49:21 PM EDT > Called Dr Moore office made pt appt for 10/04/2022 at 9:15am pt given appt information Referral Priority Routine Referral Appointment Date 10/04/2022 Reason Consult and Treat Le ft Knee Pain Diagnosis 1 Left knee pain (M25. 562) Referral Organization Chente Villarreal III, MD Referring Provider First Name Chente Referring Provider Last Name Cherelle Referring Provider Speciality Internal M edicine Referred Provider [facility] Referred Provider Specialty Orthopedic [facility] General Notes Jackelin Mariscal 2022 10:14:33 AM EDT > Faxed with Progress Note Referral Priority Routine Referral Appointment Date 03/26/2023 Reason Routine colon screen ing Diagnosis 1 Screen for colon can cer (Z12.11) Referral Organization Chente Villarreal III, MD Referring Provider First Name Chente Referring Provider Last Name Cherelle Referring Provider Speciality Internal edicine Referred Provider Chente Gomez Referred Provider Specialty Gastroentero logy General Notes Jackelin Mariscal 2022 10:13:28 AM EDT > Faxed referral with last progress note form 01/18/23, Jackelin Mariscal 03/18/2023 10:26:38 AM EDT > Dr. Gomez office has called PT and was told by the PT that he would contact the office with his work schedule. Dr. Gomez has called again and left messages but with no response. Jazmine stated she is not holding onto the referral. If PT calls they will schedule him. Referral Priority Routine MEDICATIONS Medication SIG (Take, Route, Frequency, Duration) Notes Start Date End Date Status Omeprazole 20 MG 2 capsule Orally Onc e a day as needed for 30 days Active Sildenafil Citrate 100 MG take 1 tablet by mouth once a day as needed Orally Once a day for 30 days Active IMMUNIZATIONS Vaccine Route Administration Date Status Comme nts Influenza no Preserv 3 and > IM Intramuscular 07/20/2019 Administered COVID PFIZER Unknown 02/23/2021 Administered COVID PFIZER Unknown 08/18/2020 Administered COVID PFIZER Unknown 09/08/2020 Administered Influenza, quad Unknown 03/16/2020 Administered Influenza, quad Unknown 04/03/2018 Administered SOCIAL HISTORY Tobacco Use: Social History Observation Description Date Details (start date - stop date) Never Smoker NA - NA Sex Assigned At : Social History Observation Description Sex Assigned At Male Tobacco Use/Smoking Question Answer Notes Patient is a nonsmoker Additional Findings: Tobacco Non-User Aggressive non-smoker Alcohol Screen Question Answer Notes Did you have a drink containing alcohol in the p ast year? No Points 0 Interpretation Negative PROBLEMS Problem Type ICD Code Onset Dates Problem Status W/U Status Risk SNOMED Code Notes Problem Nephrolithiasis (N20.0) Active confirmed Nephrolithiasis (76708312) Since his last visit he has had no episodes of renal colic. He has had no dysuria or hematuria. 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 Problem Left knee pain, unspecified chronicity (M25.562) Active confirmed 4165796759 Examination knee was unremarkable today. I recommended ibuprofen and rest. There was no crepitus. Problem Obesity (BMI 30.0-34.9) (E66.9) Active confirmed [id number] He has lo st 4 pounds and now weighs 262 pounds. His body mass index is 32. We made a plan to lose weight at a rate of one half of a pound per week through a diet, reduced in fat, sodium, and calories. VITAL SIGNS Heart Rate 83 /min 01/18/2023 Temperature 97.2 degrees Fahrenheit 01/18/2023 Blood pressure diastolic 70 mm Hg 01/18/2023 Height 75.5 in 01/18/2023 Blood pressure systolic 112 mm Hg 01/18/2023 Weight 262 lbs 01/18/2023 BMI 32.31 kg/m2 01/18/2023 Encounters Encounter Location Date Provider Diagnosis Chente Villarreal III, MD [address] [place] [address] [address] [place], [place] [address] 01/18/2023 Chente Villarreal Annual physical exam Z00.00 ; Erectile dysfunction, unspecified erectile dysfunction type N52.9 ; Obesity (BMI 30.0-34.9) E66.9 ; Nephrolithiasis N20.0 and Left knee pain, unspecified chronicity M25.562 Chente Villarreal III, MD [address] [place] [address] 08/14/2022 Chente Villarreal Skin lesion L98.9 ; Obesity (BMI 30.0-34.9) E66.9 ; Left knee pain, unspecified chronicity M25.562 and Nephrolithiasis N20.0 Chente Villarreal III, MD [address] [place] [address] 10/02/2022 Chente Villarreal Left ear pain H92.02 ; Left non-suppurative otitis media H65.92 ; Obesity (BMI 30.0-34.9) E66.9 ; Left knee pain, unspecified chronicity M25.562 and Nephrolithiasis N20.0 Chente Villarreal III, MD [address] [place] [address] [place] [address] 10/02/2022 Chente Villarreal III, MD [address] [place] [address] [place] [address] 10/02/2022 Chente Villarreal III, MD [address] [place] [address] [place] [address] 10/04/2022 Chente Villarreal III, MD [address] [place] [address] [place] [address] 10/04/2022 Chente Villarreal III, MD [address] [place] [address] [place] [address] 02/12/2023 Chente Villarreal III, MD [address] [place] [address] [place] [address] 03/15/2023 Chente Villarreal Annual physical exam Z00.00 and Obesity (BMI 30.0-34.9) E66.9 Chente Villarreal III, MD [address] [place] [address] [place] [address] 04/02/2023 Chente Villarreal Annual physical exam Z00.00 Chente Villarreal III, MD [address] [place] [address] [place] [address] 05/07/2023 Chente Villarreal III, MD [address] [place] [address] [place] [address] 10/08/2022 Chente Villarreal Obesity (BMI 30.0-34 .9) E66.9 ; Left knee pain, unspecified chronicity M25.562 and Non-recurrent acute suppurative otitis media of left ear without spontaneous rupture of tympanic membrane H66.002 ASSESSMENTS Encounter Date Diagnosis Assessment Notes Treatment Notes Treatment Clinical Notes 01/18/2023 Annual physical exam (ICD-10 - Z00.00) He is due for a colonoscopy and was sent for that. We discussed weight loss and diet and nutrition. 01/18/2023 Erectile dysfunction , unspecified erectile dysfunction type (ICD-10 - N52.9) This issue has been addressed with medications which are successful. 08/14/2022 Obesity (BMI 30.0-34.9) (ICD-10 - E66.9) He has gained 5 pounds and his body mass index is 32.7. I recommended aggressive weight loss to a diet, reduced in sodium, calories and animal fat. I recommended regular exercise. 08/14/2022 Skin lesion (ICD-10 - L98.9) This has a benign appearance will be observed. 10/02/2022 Left ear pain (ICD-1 0 - H92.02) He was given 5 days worth of tramadol for the severe pain. 10/02/2022 Left non-suppurative otitis media (ICD-10 - H65.92) He was given an ENT consultation October 01, 2022, as well as an antibiotic and pain medication. 03/15/2023 Annual physical exam (ICD-10 - Z00.00) He is due for a colonoscopy and was sent for that. We discussed weight loss and diet and nutrition. 04/02/2023 Annual physical exam (ICD-10 - Z00.00) He is due for a colonoscopy and was sent for that. We discussed weight loss and diet and nutrition. 10/08/2022 Obesity (BMI 30.0-34.9) (ICD-10 - E66.9) He has gained 5 pounds and his body mass index is 32.7. I recommended aggressive weight loss to a diet, reduced in sodium, calories and animal fat. I recommended regular exercise. 10/08/2022 Left knee pain, unspecified chronicity (ICD-10 - M25.562) Examination knee was unremarkable today. I recommended ibuprofen and rest. There was no crepitus. 01/18/2023 Obesity (BMI 30.0-34.9) (ICD-10 - E66.9) He has lost 4 pounds and now weighs 262 pounds. His body mass index is 32. We made a plan to lose weight at a rate of one half of a pound per week through a diet, reduced in fat, sodium, and calories. 08/14/2022 Left knee pain, unspecified chronicity (ICD-10 - M25.562) Examination knee was unremarkable today. I recommended ibuprofen and rest. There was no crepitus. 10/02/2022 Obesity (BMI 30.0-34.9) (ICD-10 - E66.9) He has gained 5 pounds and his body mass index is 32.7. I recommended aggressive weight loss to a diet, reduced in sodium, calories and animal fat. I recommended regular exercise. 03/15/2023 Obesity (BMI 30.0-34.9) (ICD-10 - E66.9) He has lost 4 pounds and now weighs 262 pounds. His body mass index is 32. We made a plan to lose weight at a rate of one half of a pound per week through a diet, reduced in fat, sodium, and calories. 10/08/2022 Non-recurrent acute suppurative otitis media of left ear without spontaneous rupture of tympanic membrane (ICD-10 - H66.002) He has noted improvement. He will finish the antibiotics. 01/18/2023 Nephrolithiasis (ICD-10 - N20.0) Since his last visit he has had no episodes of renal colic. He has had no dysuria or hematuria. 08/14/2022 Nephrolithiasis (ICD-10 - N20.0) Since his last visit he has had no episodes of renal colic. He has had no dysuria or hematuria. 10/02/2022 Left knee pain, unspecified chronicity (ICD-10 - M25.562) Examination knee was unremarkable today. I recommended ibuprofen and rest. There was no crepitus. 01/18/2023 Left knee pain, unspecified chronicity (ICD-10 - M25.562) Examination knee was unremarkable today. I recommended ibuprofen and rest. There was no crepitus. 10/02/2022 Nephrolithiasis (ICD-10 - N20.0) Since his last visit he has had no episodes of renal colic. He has had no dysuria or hematuria. PLAN OF TREATMENT Pending Test Test Name Order Date PROFILE, FASTING (COMPREHENSIVE METABOLI C) 2018 PROFILE, FASTING (COMPREHENSIVE METABOLI C) 11/28/2020 PROFILE, FASTING (COMPREHENSIVE METABOLI C) 01/18/2023 PROFILE, FASTING (COMPREHENSIVE METABOLI C) 01/17/2022 PROFILE, FASTING (COMPREHENSIVE METABOLI C) 11/28/2021 PROFILE, RANDOM (COMPREHENSIVE METABOLIC ) 07/20/2019 MAGNESIUM 01/18/2023 LIPID PANEL 2018 LIPID PANEL 11/28/2020 LIPID PANEL 01/18/2023 LIPID PANEL 01/17/2022 LDH 07/20/2019 FREE T4 (FT4) 07/20/2019 TSH (THYROID STIMULATING HORMONE) 2019 CPK 07/20/2019 PSA, TOTAL 01/18/2023 PSA, TOTAL 01/17/2022 PSA, TOTAL 11/28/2021 PSA, TOTAL 2018 PSA, TOTAL 11/28/2020 CBC w DIFF 01/18/2023 CBC w DIFF 01/17/2022 CBC w DIFF 11/28/2021 CBC w DIFF 2018 CBC w DIFF 11/28/2020 CBC w DIFF 07/20/2019 SED RATE (ESR) 07/20/2019 Lipid Panel 11/28/2021 Next Appt Details Provider Name:Chente Villarreal, 01/21/2024 02:00:00 PM, [address] [place] [address] , [address], [place], [address], Insurance Providers Payer Name Payer Address Payer Phone Subscriber Number Group Number Insured Name Patient Relationship to Insured Coverage Start Date Coverage End Date [facility] [address] [facility] [address] [place] [phone] [id number] DAMASO IRIZARRY Self - patient is the insured MEDICAL (GENERAL) HISTORY Medical History History ICD Code Nephrolithiasis N20.0 Umbilical hernia K42.9 Hiatal hernia K44.9 GERD family history of colon cancer calcium oxalate ureterolithiasis history of laceration left second finger tendon repair erectile dysfunction herniorrhaphy 2016, [facility] [place], Dr. Palm obesity, body mass index 30 Surgical History Surgery Date(Month/Year) herniorrhaphy, [facility] 2016 cut tendon of L index finger 2008 ureteral stent insertion for calcium oxa late stone obstruction 2014 nephrolithiasis 2007 Hospitalization History Reason Date(Month/Year) ureteral stent insertion 2014
== END 2023-07-15 12:04 | disposition home or self-care (01) ==
LOC: HO.HOS 11:44
PROVIDERS: Visit Provider Physician Assistant
DX: S83.8X2D Sprain of other specified parts of left knee, subsequent encounter (principal)
CPT/HCPCS: 99213

== ENCOUNTER → 2023-07-15 11:44 | Outpatient (BNVA) | payer OTHER, SELFPAY | PROVIDERS: Visit Provider Physician Assistant ==

== ENCOUNTER 2023-07-24 09:59 | Outpatient (AMB) | payer OTHER, SELFPAY ==
--- NOTE | 2023-07-24 10:03 | MHC.OFFVIS ---
Intake Intake Visit Reasons: Ov- Lower back pain Intake Note: Damaso presents today for his follow up visit for his lower back pain. Allergies No Known Allergies Allergy (Verified 07/15/23 11:47) HPI HPI Comments History of Present Illness Details History of kidney/ureteral stones. Recently seen in the ER. This is NOT the same side where he has back pain. Back pain since HS. Played football in HS. Plays golf now. 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 Midline back pain. When severe, needs to walk hunched back. Goes more to the right side, pressure pain on both hips down to knees. When walking, could suddenly feel numbness on left leg down to foot dorsum. Treatment done so far: NSAIDs Heating pad or put some pressure to make it feel therapy, chiropractor - last years ago Today he says pain is worse than the right. Both upper and lower back. Left leg feels numb. Right leg feels tingly. X-rays reviewed independently showed intact disc spaces both thoracic and lumbar. Report did mention hypertrophic changes on thoracic spine but poor visualization. He has not been able to do chiropractor since last time I saw him because the chiropractor went for surgery. He recently saw orthopedics for knee pain, had injection which seemed to have worsened the pain. Pending MRI of the knee. 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
--- NOTE | 2023-07-24 10:14 | A.OFFVIS_ITS ---
Intake Intake Visit Reasons: Ov- Lower back pain Intake Note: Damaso is a 47 year old male who presents today for a left knee injection Allergies No Known Allergies Allergy (Verified 07/15/23 11:47) HPI Ov- Lower back pain HPI Details 47-year-old male [facility] knee pain. He currently states he has pain in his left knee which is aggravated with heavy lifting. He had an injection in the past which provided him with minimal relief. He states most of his discomfort is along the anterior portion of the knee. 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 Review of Systems Const All systems reviewed & are unremarkable except as noted in HPI and below Physical Exam Extrem Other: Left knee: Skin intact, no erythema or joint effusion. Lateral retropatellar tenderness present. Full ROM with crepitus. Negative Damian?s. No ligamentous laxity. NVI. Office Procedures Joint Injection/Drain Joint Injection/Drain Primary Site: left knee Prep: site was prepped using aseptic technique, ethochloride spray was applied and injection warnings given Injected: 80 mg of and in the joint Approach Used: anterolateral Procedure: The patient tolerated the procedure well and there was some relief with the local anesthesia Coding 38771 - Glenohumeral/Tronchanteric Bursa/Intraarticular Procedure code (CPT) selection complete Assessment & Plan Assessment & Plan (1) Patellofemoral arthritis of left knee: Code(s): M17.12 - Unilateral primary osteoarthritis, left knee Plan We discussed options today which include steroid injection. They did consent to move forward with the left knee injection, which was tolerated well. I recommended rest, ice and elevation and OTC anti-inflammatories PRN for discomfort. I also gave a course of physical therapy in the office today. If symptoms persist or worsens over the next 6-8 weeks, patient will contact the office, otherwise follow-up as needed. Orders: Orders PT Evaluation and Treatment Today M17.12 - Unilateral primary osteoarthritis, left knee Patient Instructions: Scribed for Kevin Wakefield PA-C, by Perfecto Cuellar certified medical assistant, on 07/24/2023 at 10:00 AM Kevin GREENBERG PA-C, have personally reviewed and agree with the information entered by the scribe. Coding Level of Care Code Est Pt Level 3 (91745) Diagnoses Patellofemoral arthritis of left knee M17.12 CPT Codes Coding - Joint 7: 96125 - Glenohumeral/Tronchanteric Bursa/Intraarticular ([id number])
== END 2023-07-24 10:44 | disposition home or self-care (01) ==
PROVIDERS: PCP Internal Medicine Medical Oncology; Visit Provider Physician Assistant
DX: M17.12 Unilateral primary osteoarthritis, left knee (principal)
CPT/HCPCS: 20610; 99213

== ENCOUNTER → 2023-07-24 09:59 | Outpatient (BNVA) | payer OTHER, SELFPAY | PROVIDERS: PCP Internal Medicine Medical Oncology; Visit Provider Physical Medicine & Rehabilitation | DX: M17.12 Unilateral primary osteoarthritis, left knee (principal) | CPT/HCPCS: 20610; J1040 ==

== ENCOUNTER 2023-08-01 08:34 | Outpatient (REF) | payer OTHER, SELFPAY ==
--- NOTE | ~2023-08-01 | US_ITS ---
EXAMINATION: US RETROPERITONEAL LIMITED (RENAL ONLY) CLINICAL INFORMATION: Calculus of kidney. COMPARISON: CT abdomen and pelvis 04/02/2023. TECHNIQUE: Real-time imaging of the kidneys. FINDINGS: RIGHT KIDNEY: 12.7 x 6.8 x 6.4 cm (SAG x AP x TRV). The kidney is normal in size, contour, and echogenicity. Renal cortical thickness is normal. No renal calculi or hydronephrosis. Simple appearing cyst in the mid pole measuring 0.9 cm, for which no imaging follow-up is recommended. LEFT KIDNEY: 12.5 x 5.8 x 6.0 cm (SAG x AP x TRV). The kidney is normal in size, contour, and echogenicity. Renal cortical thickness is normal. No calculi or focal parenchymal lesions. No hydronephrosis. Focus of twinkle artifact in the lower pole suggestive of underlying nonobstructive renal calculus. US/US renal BI IMPRESSION: 1. Nonobstructive left lower pole renal calculus. 2. Simple appearing cyst in the right kidney for which no imaging follow-up is recommended.
== END 2023-08-01 08:35 | disposition home or self-care (01) ==
LOC: HO.US 08:34
PROVIDERS: Visit Provider Nurse Practitioner Family
DX: N20.0 Calculus of kidney (principal)
CPT/HCPCS: 76775

== ENCOUNTER 2023-09-24 10:04 | Outpatient (AMB) | payer OTHER, SELFPAY ==
--- NOTE | 2023-09-24 10:29 | A.OFFVIS_ITS ---
Intake Intake Visit Reasons: follow up/US(set) Intake Note: Patient presents today for a follow up on: US Meds- None Allergies to Antibiotic- No Known Allergies Blood Thinner- None Patient not longer taking Tamsulosin Hospice Office Coordinator Required: No Accompanied by: Self / Same As Patient Allergies No Known Allergies Allergy (Verified 09/24/23 20:58) Medication List - Last Reconciled 09/24/23 by EROS Barnett- omeprazole 40 mg PO DAILY PRN HPI HPI Comments History of Present Illness Details Damaso is a very pleasant 47-year-old male patient of . He has a past medical history of GERD and nephrolithiasis. He presents to the office today for a follow-up of his nephrolithiasis. Of note, patient underwent in office cystoscopy left-sided stent removal 04/10/23. He u nderwent surgical intervention of left distal ureteric stone on 04/03/[address] Poon. Patient status post cystoscopy, left retrograde, left dilatation of ureteric orifice under floor cause could be, left ureteroscopy, laser lithotripsy, stone basketing, and left stent placement. When asked patient reports to be doing and feeling well. Recent renal imaging results reviewed with the patient today. Bilateral kidneys with no hydronephrosis. Right kidney with 0.9 mid pole simple appearing cyst for which no imaging follow-up is recommended per radiology report. Left kidney with twinkle artifact in the lower pole suggestive underlying nonobstructive renal calculus. He discusses his longstanding history of nephrolithiasis in the past with Dr. Niño. He discusses having increased his water intake. When asked he denies any bothersome urinary issues or concerns. He denies urinary urgency, urinary frequency, incontinence, nocturia, hematuria, dysuria, foul smelling urine, changes to urinary stream, flank pain, fever, and or chills. He is happy with his current voiding parameters. He discusses upcoming trip to [place] and has been working over time at his job. Otherwise offers no other issues or concerns at this time. 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 Review of Systems Const All systems reviewed & are unremarkable except as noted in HPI and below Physical Exam Const General: cooperative, healthy appearing, comfortable, no acute distress, well developed, alert and awake Nutritional Appearance: overweight Orientation/consciousness: patient oriented x3 Limitations: no limitations HEENT Head: Yes normal to inspection, Yes normocephalic and Yes atraumatic Ears: hearing grossly normal bilaterally Eyes General: appearance normal, both eyes and all related structures Neck Neck: Yes normal visual inspection and Yes trachea midline Chest Chest palpation & inspection: normal inspection of the chest Resp Effort & Inspection: normal respiratory effort and able to speak in complete sentences Cardio Rate: regular rate GI Other: round Inspection: Yes normal to inspection General: Yes no CVA tenderness Back/Spine/Pelvis Back: no CVA tenderness Skin General skin exam: no rashes or lesions noted Neuro General: patient oriented x3 Extrem General: Yes normal to inspection Psych Appearance: grossly normal and well kempt Mental Status: mental status grossly normal Speech and movement: Normal speech and movement present and Clear speech present Affect: normal affect Attitude: cooperative Thought process: Normal thought process present Thought content: Normal thought content present Insight: Fair insight present (Psych) Judgement: Fair judgement present (Psych) Results AMB Urinalysis, Automated UA Leukoctes 0 Emilia/uL Last Edit by Stephanie Chacon CMA on 09/24/23 10 :42 UA Nitrite Negative Last Edit by Stephanie Chacon CMA on 09/24/23 10: 42 UA Urobilinogen 0.2 mg/dL Last Edit by Stephanie Chacon CMA on 4 10:42 UA Protein 15 mg/dL Last Edit by Stephanie Chacon CMA on 09/24/23 10:4 2 UA pH 6.5 Last Edit by Stephanie Chacon CMA on 09/24/23 10:42 UA Blood 0 Burak/uL Last Edit by [facility], [facility] on 09/24/23 10:42 UA Specific [place] 1.015 Last Edit by [facility], [facility] on 10:42 UA Ketone Negative Last Edit by [facility], [facility] on 09/24/23 10:4 2 UA Bilirubin 0 mg/dL Last Edit by [facility], [facility] on 09/24/23 10: 42 UA Glucose 0 mg/dL Last Edit by [facility], [facility] on 09/24/23 10:42 Results Reviewed Results Reviewed: Laboratory Last Values Urine pH (Auto) 6.5 09/24/23 10:37 Specific [place] (Auto) 1.015 09/24/23 10:37 Urine Protein (Auto) 15 mg/dL 09/24/23 10:37 Glucose (UA)(Auto) 0 mg/dL 09/24/23 10:37 Urine Ketones (Auto) Negative 09/24/23 10:37 Urine Blood (Auto) 0 Burak/uL 09/24/23 10:37 Urine Nitrite (Auto) Negative 09/24/23 10:37 Urine Bilirubin (Auto) 0 mg/dL 09/24/23 10:37 Urine Urobilinogen (Auto) 0.2 mg/dL 09/24/23 10:37 Leukocyte Esterase (Auto) 0 Emilia/uL 09/24/23 10:37 Date of Service: 08/01/23 EXAMINATION: US RETROPERITONEAL LIMITED (RENAL ONLY) FINDINGS: RIGHT KIDNEY: 12.7 x 6.8 x 6.4 cm (SAG x AP x TRV). The kidney is normal in size, contour, and echogenicity. Renal cortical thickness is normal. No renal calculi or hydronephrosis. Simple appearing cyst in the mid pole measuring 0.9 cm, for which no imaging follow-up is recommended. LEFT KIDNEY: 12.5 x 5.8 x 6.0 cm (SAG x AP x TRV). The kidney is normal in size, contour, and echogenicity. Renal cortical thickness is normal. No calculi or focal parenchymal lesions. No hydronephrosis. Focus of twinkle artifact in the lower pole suggestive of underlying nonobstructive renal calculus. IMPRESSION: 1. Nonobstructive left lower pole renal calculus. 2. Simple appearing cyst in the right kidney for which no imaging follow-up is recommended. Assessment & Plan Assessment & Plan (1) Nephrolithiasis: Code(s): N20.0 - Calculus of kidney (2) Renal cyst: Code(s): N28.1 - Cyst of kidney, acquired Plan In office urinalysis results reviewed with the patient today; as noted above. Recent renal imaging results reviewed with the patient today; as noted above. Discussed, educated, and stressed the importance of continuing to drink plenty of water daily. Discussed further metabolic workup with 24 hour urine collection and labs; however patient declines at this time. Discussed at length potential causes of nephrolithiasis. Discussed adding 1 oz of lemon juice to water daily. Patient currently denies any bothersome urinary issues or concerns. He is happy with his current voiding parameters. Will obtain renal ultrasound in 1 year. Follow-up in 1 year with imaging to be completed prior; or sooner with any issues, concerns, and or questions. Orders: Orders AMB Urinalysis Automated Today R33.9 - Retention of urine, unspecified US renal BI 1 Year N20.0 - Calculus of kidney Patient Instructions: The patient had an opportunity to ask questions regarding the treatment plan. All questions were answered. Physical exam, labs, and imaging were discussed and reviewed in detail. As well as risks, benefits, and discussion of treatment choices. No major barriers to understanding were identified. The patient expressed understanding and agreement with the above treatment plan. The patient was made aware they should contact our office by phone for worsening of their current condition, the appearance of new symptoms, or with any questions or concerns. Compliance is encouraged with any medications and follow up testing that is ordered. It is a privilege to be allowed the opportunity to participate in? your urological care.? Again, if you have any questions or concerns If you have any questions or concerns please do not hesitate to contact me. The office is [phone]. This note is constructed using voice recognition software. While every effort has been made to ensure accuracy theater teacher errors may have been included. Yours sincerely, KENDRICK Barnett Coding Level of Care Code Est Pt Level 3 (49567) Diagnoses Nephrolithiasis N20.0 Renal cyst N28.1
== END 2023-09-24 11:11 | disposition home or self-care (01) ==
PROVIDERS: PCP Internal Medicine Medical Oncology; Visit Provider Nurse Practitioner Family
DX: N20.0 Calculus of kidney (principal); N28.1 Cyst of kidney, acquired
CPT/HCPCS: 99213

== ENCOUNTER → 2023-09-24 10:04 | Outpatient (BNVA) | payer OTHER, SELFPAY | PROVIDERS: PCP Internal Medicine Medical Oncology; Visit Provider Nurse Practitioner Family | DX: N20.0 Calculus of kidney (principal); N28.1 Cyst of kidney, acquired; R33.9 Retention of urine, unspecified | CPT/HCPCS: 81003 ==

== ENCOUNTER 2023-10-18 09:00 | Outpatient (RCR) | payer OTHER, SELFPAY ==
[2023-07-30 09:13] VITALS: BP 122/78; PULSE 82; O2SAT 99
== END 2023-12-16 07:50 | disposition home or self-care (01) ==
LOC: HO.PTWFD 09:00
PROVIDERS: Visit Provider Physical Medicine & Rehabilitation
DX: M54.16 Radiculopathy, lumbar region (principal); M62.830 Muscle spasm of back; M54.6 Pain in thoracic spine
CPT/HCPCS: 97110; 97140; 97161; 97535

== ENCOUNTER 2024-06-30 08:19 | Outpatient (REF) | payer BC, SELFPAY ==
--- OUTSIDE RECORDS SUMMARY | 2024-06-30 08:28 | XMS_ITS | Patient Health Record ---
Author Organization Chente Villarreal III, MD Address [address] [place] [address] [place] [address] Care Team Providers Care Dry Box Operator Name Role Phone Chente Villarreal Primary Care Provider [phone] Allergies No Known Allergies Reason For Referral No Information Medications Medication SIG (Take, Route, Frequency, Duration) Notes Start Date End Date Status Sildenafil Citrate 100 MG take 1 tablet by mouth once a day as needed Orally Once a day for 30 days 04/19/2025 Active Omeprazole 20 MG 2 capsule Orally Onc e a day as needed for 30 days Active Immunizations Vaccine Route Administration Date Status Comme nts Influenza no Preserv 3 and > IM Intramuscular 07/20/2019 Administered COVID PFIZER Unknown 02/23/2021 Administered COVID PFIZER Unknown 08/18/2020 Administered COVID PFIZER Unknown 09/08/2020 Administered Influenza, quad Unknown 03/16/2020 Administered Influenza, quad Unknown 04/03/2018 Administered Social History Tobacco Use: Social History Observation Description Date [...] ast year? No Points 0 Interpretation Negative Problems Problem Type SNOMED Code ICD Code Onset Dates Problem Status W/U Status Risk Notes Problem [id number] Obesity (BMI 30.0-34.9) (E66.9) Active confirmed He has lost 4 pounds and now weighs 262 pounds. His body mass index is 32. We made a plan to lose weight at a rate of one half of a pound per week through a diet, reduced in fat, sodium, and calories. Problem Hypomagnesemia (837100776) Hypomagnesemia (E83.42) Active confirmed Problem Erectile dysfunction, unspecified erectile dysfunction type (N52.9) Active confirmed This issue has been addressed with medications which are successful. Problem Nephrolithiasis (77550129) Nephrolithiasis (N20.0) Active confirmed Since his last visit he has had no episodes of renal colic. He has had no dysuria or hematuria. Problem [id number] Left knee pain, unspecified chronicity (M25.562) Active confirmed Examination knee was unremarkable today. I recommended ibuprofen and rest. There was no crepitus. Encounters Encounter Location Date Provider Diagnosis Chente Villarreal III, MD [address] [place] [address] [place] [id number] 04/24/2024 Chente Villarreal Obesity (BMI 30.0-34 .9) E66.9 and Annual physical exam Z00.00 Chente Villarreal III, MD [address] [place] [address] [place] [phone] 06/25/2024 Chente Villarreal Erectile dysfunction , unspecified erectile dysfunction type N52.9 ; Obesity (BMI 30.0-34.9) E66.9 and Hypomagnesemia E83.42 Chente Villarreal III, MD [address] [place] [address] [place] [phone] 06/26/2024 Chente Villarreal Assessments Encounter Date Diagnosis (ICD Code) Assessment Notes Treat ment Notes Treatment Clinical Notes 04/24/2024 Obesity (BMI 30.0-34.9) (ICD-10 - E66.9) He has lost 4 pounds and now weighs 262 pounds. His body mass index is 32. We made a plan to lose weight at a rate of one half of a pound per week through a diet, reduced in fat, sodium, and calories. 06/25/2024 Erectile dysfunction , unspecified erectile dysfunction type (ICD-10 - N52.9) 04/24/2024 Annual physical exam (ICD-10 - Z00.00) He is due for a colonoscopy and was sent for that. We discussed weight loss and diet and nutrition. 06/25/2024 Obesity (BMI 30.0-34.9) (ICD-10 - E66.9) 06/25/2024 Hypomagnesemia (ICD-10 - E83.42) Plan Of Treatment Pending Test Test Name Order Date PROFILE, FASTING (COMPREHENSIVE METABOLI C) 11/28/2021 PROFILE, FASTING (COMPREHENSIVE METABOLI C) 2018 PROFILE, FASTING (COMPREHENSIVE METABOLI C) 11/28/2020 PROFILE, FASTING (COMPREHENSIVE METABOLI C) 06/25/2024 PROFILE, FASTING (COMPREHENSIVE METABOLI C) 01/18/2023 PROFILE, FASTING (COMPREHENSIVE METABOLI C) 01/17/2022 PROFILE, RANDOM (COMPREHENSIVE METABOLIC ) 07/20/2019 MAGNESIUM 01/18/2023 LIPID PANEL 01/18/2023 LIPID PANEL 01/17/2022 LIPID PANEL 2018 LIPID PANEL 11/28/2020 LDH 07/20/2019 FREE T4 (FT4) 07/20/2019 TSH (THYROID STIMULATING HORMONE) 2019 CPK 07/20/2019 PSA, TOTAL 01/18/2023 PSA, TOTAL 01/17/2022 PSA, TOTAL 11/28/2021 PSA, TOTAL 2018 PSA, TOTAL 06/25/2024 PSA, TOTAL 11/28/2020 CBC w DIFF 11/28/2020 CBC w DIFF 07/20/2019 CBC w DIFF 01/18/2023 CBC w DIFF 01/17/2022 CBC w DIFF 11/28/2021 CBC w DIFF 2018 SED RATE (ESR) 07/20/2019 CBC WITH AUTO DIFF 06/25/2024 Magnesium 06/25/2024 Lipid Panel 06/25/2024 Lipid Panel 11/28/2021 Next Appt Details Provider Name:Chente Villarreal, 07/17/2024 09:00:00 AM, [address] [place] [address] [address], [place], [address], Insurance Providers Payer Name Payer Address Payer Phone Subscriber Number Group Number Insured Name Patient Relationship to Insured Coverage Start Date Coverage End Date [facility] [address] [place], [place] [id number] [phone] [id number] DINORA IRIZARRY Self - patient is the insured 4 Medical (General) History Medical History History ICD Code Nephrolithiasis N20.0 Umbilical hernia K42.9 Hiatal hernia K44.9 GERD family history of colon cancer calcium oxalate ureterolithiasis history of laceration left second finger tendon repair erectile dysfunction herniorrhaphy 2016, [facility] [place] [facility] [place]. Palm obesity, body mass index 30 Surgical History Surgery Date(Month/Year) herniorrhaphy, [facility] 2016 cut tendon of L index finger 2008 ureteral stent insertion for calcium oxa late stone obstruction 2014 nephrolithiasis 2007 Hospitalization History Reason Date(Month/Year) ureteral stent insertion 2014
--- OUTSIDE RECORDS SUMMARY | 2024-06-30 08:28 | XMS_ITS ---
Author Organization Chente Villarreal III, MD Address [address] [place] [address] [place] [address] Care Team Providers Care Capability Lead Name Role Phone Chente Villarreal Primary Care Provider REASON FOR VISIT Rx Refill Medications Medication SIG (Take, Route, Frequency, Duration) Notes Start Date End Date Status Sildenafil Citrate 100 MG take 1 tablet by mouth once a day as needed Orally Once a day for 30 days 04/19/2025 Active Omeprazole 20 MG 2 capsule Orally Onc e a day as needed for 30 days Active Social History Sex Assigned At : Social History Observation Description Sex Assigned At Male Encounters Encounter Location Date Provider Diagnosis Chente Villarreal III, MD [address] [place] [address] [place] [address] 04/24/2024 Chente Villarreal Obesity (BMI 30.0-34.9) E66.9 and Annual physical exam Z00.00 Assessments Encounter Date Diagnosis (ICD Code) Assessment Notes Treatment Notes Treatment Clinical Notes 04/24/2024 Obesity (BMI 30.0-34.9) (ICD-10 - E66.9) He has lost 4 pounds and now weighs 262 pounds. His body mass index is 32. We made a plan to lose weight at a rate of one half of a pound per week through a diet, reduced in fat, sodium, and calories. 04/24/2024 Annual physical exam (ICD-10 - Z00.00) He is due for a colonoscopy and was sent for that. We discussed weight loss and diet and nutrition. Plan Of Treatment Medication Medication Name Sig Start Date Stop Date Notes Sildenafil Citrate 100 MG take 1 tablet by mouth once a day as needed Orally Once a day for 30 days 04/19/2025 Omeprazole 20 MG 2 capsule Orally Onc e a day as needed for 30 days Next Appt Details Provider Name:Chente Villarreal, 07/17/2024 09:00:00 AM, [address] [place] [address] , [place] [address], [place], [address], Progress Notes * DINORA IRIZARRYDOB:1975 (48 yo M)Acc No.[id number]:04/24/2024 Patient:?DINORA IRIZARRY :1975???Age:48 Y???Sex:Male [place], [address] * Refills? Refill Sildenafil Citrate Tablet, 100 MG, Orally, 30, take 1 tablet by mouth once a day as needed, Once a day, 30 days, Refills=11 Refill Omeprazole Capsule Delayed Release, 20 MG, Orally, 60, 2 capsule, Once a day as needed, 30 days, Refills=11 * true * Date:? Generated for Jamila barrera/Colleen/Benoititting on:?06/30/2024 08:28 AM EST
--- OUTSIDE RECORDS SUMMARY | 2024-06-30 08:28 | XMS_ITS ---
Author Organization Chente Villarreal III, MD Address [address] [place] [address] [place] [address] Care Team Providers Care First Coat Operator Name Role Phone Chente Villarreal Primary Care Provider [phone] REASON FOR VISIT Lab Work Request Social History Sex Assigned At : Social History Observation Description Sex Assigned At Male Encounters Encounter Location Date Provider Diagnosis Chetne Villarreal III, MD [address] [place] [address] [place] [address] 06/25/2024 Chente Villarreal Erectile dysfunction , unspecified erectile dysfunction type N52.9 ; Obesity (BMI 30.0-34.9) E66.9 and Hypomagnesemia E83.42 Assessments Encounter Date Diagnosis (ICD Code) Assessment Notes Treat ment Notes Treatment Clinical Notes 06/25/2024 Erectile dysfunction , unspecified erectile dysfunction type (ICD-10 - N52.9) 06/25/2024 Obesity (BMI 30.0-34.9) (ICD-10 - E66.9) 06/25/2024 Hypomagnesemia (ICD-10 - E83.42) Plan Of Treatment Pending Test Test Name Order Date PROFILE, FASTING (COMPREHENSIVE METABOLI C) 06/25/2024 PSA, TOTAL 06/25/2024 CBC WITH AUTO DIFF 06/25/2024 Magnesium 06/25/2024 Lipid Panel 06/25/2024 Next Appt Details Provider Name:Chente Villarreal, 07/17/2024 09:00:00 AM, [address] [place] [address] [address], [place], [address], Progress Notes * DINORA IRIZARRYDOB:1975 (48 yo M)Acc No.[id number]:06/25/2024 Patient:?DINORA IRIZARRY :1975???Age:48 Y???Sex:Male Address: [place], [address] Subjective: * Chief Complaints: * ???Lab Work Request * Medical History:? * Surgical History:? * Hospitalization/Major Diagno stic Procedure:? * Medications:? Objective: * Vitals:? * Physical Examination:? Assessment: * Assessment: 1.?Erectile dysfunction, uns pecified erectile dysfunction type - N52.9???2.?Obesity (BMI 30.0-34.9) - E66.9???3.?Hypomagnesemia - E83.42??? Plan: * Treatment: 2.?Obesity (BMI 30.0-34.9)?LAB: PROFILE, FASTING (COMPREHENSIVE METABOLIC) ?LAB: PSA, TOTAL ?LAB: CBC WITH AUTO DIFF ?LAB: Magnesium ?LAB: Lipid Panel 3.?Hypomagnesemia?LAB: PROFILE, FASTING (COMPREHENSIVE METABOLIC) ?LAB: PSA, TOTAL ?LAB: CBC WITH AUTO DIFF ?LAB: Magnesium ?LAB: Lipid Panel * Procedure Codes:? * true * Date:? Generated for Jamila barrera/Colleen/eTransmitting on:?06/30/2024 08:28 AM EST
--- OUTSIDE RECORDS SUMMARY | 2024-06-30 08:28 | XMS_ITS ---
Author Organization Chente Villarreal III, MD Address [address] [place] [address] [place] [address] Care Team Providers Care Auto Damage Appraiser Name Role Phone Chente Villarreal Primary Care Provider [phone] REASON FOR VISIT Bloodwork request Social History Sex Assigned At : Social History Observation Description Sex Assigned At Male Encounters Encounter Location Date Provider Diagnosis Chenet Villarreal III, MD [address] [place] [address] [place] [address] 06/26/2024 Chente Villarreal Plan Of Treatment Next Appt Details Provider Name:Chente Villarreal, 07/17/2024 09:00:00 AM, [address] [place] [address] [place], [address], Progress Notes * DINORA IRIZARRYDOB:1975 (48 yo M)Acc No.[id number]:06/26/2024 Patient:?ABBIEDINORA :1975???Age:48 Y???Sex:Male Address:[place], [address] * true * Date:? Generated for Printi ng/Fagrantg/eTransmitting on:?06/30/2024 08:27 AM EST
[2024-06-30 08:42] LABS: MANUAL DIFF FLAG NO
[2024-06-30 08:59] LABS: Basophils Absolute Auto 0.1 X10*3/uL (0.0-0.2); Basophils Percent Auto 0.7 % (0-2); Eosinophils Absolute Auto 0.4 X10*3/uL (0.0-0.4); Eosinophils Percent Auto 5.5 % (0-4); Hemoglobin 15.3 g/dl (14.0-18.0); Imm Gran Abs Auto 0.03 X10*3/uL (0.00-0.03); Imm Gran Pct Auto 0.4 % (0.0-0.4); Lymphocytes Absolute Auto 2.5 X10*3/uL (1.2-4.9); Lymphocytes Percent Auto 33.9 % (20-40); Mean Corpuscular HGB Conc 32.6 g/dl (31.0-36.0); Mean Corpuscular Hemoglobin 27.1 pg (27.0-33.0); Mean Corpuscular Volume 83.3 fL (80.0-98.0); Mean Platelet Volume 9.4 fL (9.4-12.4); Monocytes Absolute Auto 0.6 X10*3/uL (0.1-1.2); Monocytes Percent Auto 8.7 % (2-11); Neutrophils Absolute Auto 3.7 x10*3/uL (2.0-8.3); Neutrophils Percent Auto 50.8 % (45-73); Platelet Count 244 X10*3/uL (160-400); Red Blood Count 5.64 X10*6/uL (4.60-5.80); Red Cell Distribution Width 13.5 % (11.0-16.0); White Blood Count 7.2 X10*3/uL (4.8-10.8)
[2024-06-30 09:47] LABS: Prostate Specific Antigen 0.63 ng/mL (<0.05-4.0)
[2024-06-30 09:50] LABS: Alanine Aminotransferase 66 U/L (0-40); Albumin Level 4.4 g/dL (3.5-5.0); Alkaline Phosphatase 61 U/L (39-117); Anion Gap 11 (12-20); Aspartate Amino Transferase 38 U/L (5-37); Bilirubin Total 0.5 mg/dL (0.0-1.0); Blood Urea Nitrogen 16 mg/dL (9-16); Calcium 9.5 mg/dL (8.4-10.2); Carbon Dioxide 25 mmol/L (22-29); Chloride 109 mmol/L (96-108); Cholesterol 203 mg/dL (<200); Estimated Glomerular Filt Rate > 60; Glucose Fasting 109 mg/dL (60-99); HDL Cholesterol 49 mg/dL (>40); Potassium 4.4 mmol/L (3.3-5.1); Sodium 141 mmol/L (135-145); Total Protein 7.9 g/dL (6.5-8.0)
[2024-06-30 10:02] LABS: LDL Cholesterol Calculated 137 mg/dL (<100); Triglycerides 87 mg/dL (<150)
== END 2024-06-30 08:20 | disposition home or self-care (01) ==
LOC: HO.LAB 08:19
PROVIDERS: PCP Internal Medicine Medical Oncology; Visit Provider Internal Medicine Medical Oncology
DX: N52.9 Male erectile dysfunction, unspecified (principal); E66.9 Obesity, unspecified; E83.42 Hypomagnesemia; Z12.5 Encounter for screening for malignant neoplasm of prostate
CPT/HCPCS: 36415; 80053; 80061; 83735; 84153; 85025

== ENCOUNTER 2024-09-17 08:31 | Outpatient (REF) | payer BC, SELFPAY ==
--- NOTE | ~2024-09-17 | US_ITS ---
EXAMINATION: US KIDNEY BILATERAL HISTORY: N20.0 - Calculus of kidney TECHNIQUE: Real-time grayscale ultrasound imaging of the kidneys was performed and images were reviewed. COMPARISON: Comparison is made with the prior examination dated 08/01/2023. FINDINGS: Right kidney: The right kidney measures 13.7 x 6.6 x 6.0 cm. Renal parenchymal echotexture and thickness are normal. Again seen is an interpolar cyst measuring 9 x 5 x 7 mm. There is no hydronephrosis or renal calculi. Left Kidney: The left kidney measures 12.9 x 7.0 x 5.3 cm. Renal parenchymal echotexture and thickness are normal. There are no masses. Again seen is a twinkle artifact at the lower pole of the left kidney, suggestive of a calculus. However, no discrete calculus is seen on grayscale imaging. There is no hydronephrosis. US/US renal BI IMPRESSION: Subcentimeter right renal cyst. Possible nonobstructing calculus at the lower pole of the left kidney as described. Electronically signed by: Chente Og MD 09/17/2024 09:06 AM EDT
--- OUTSIDE RECORDS SUMMARY | 2024-09-17 09:02 | XMS_ITS ---
Author Organization Chente Villarreal III, MD Address [address] [facility] [place] [address] Care Team Providers Care Occupational Therapist Aide Name Role Phone Chente Villarreal Primary Care Provider REASON FOR VISIT Rx request Social History Sex Assigned At : Social History Observation Description Sex Assigned At Male Encounters Encounter Location Date Provider Diagnosis Chente Villarreal III, MD [address] [place] [address] [place] [address] 08/18/2024 Chente Villarreal Plan Of Treatment Next Appt Details Provider Name:Chente Villarreal, 10/14/2024 10:45:00 AM, [address] [place] [address] [place], [address], Provider Name:Chente Villarreal, 07/19/2025 09:30:00 AM, [address] [place] [address] [place], [address], Progress Notes * DINORA IRIZARRYDOB:1975 (48 yo M)Acc No.[id number]:08/18/2024 Patient:?ABBIEDINORA :1975???Age:48 Y???Sex:Male [place], [address] * true * Date:? Generated for Jamila barrera/Colleen/Benoititting on:?09/17/2024 09:02 AM EDT
--- OUTSIDE RECORDS SUMMARY | 2024-09-17 09:02 | XMS_ITS | Patient Health Record ---
Author Organization Chente Villarreal III, MD Address [address] [facility] [place] [address] Care Team Providers Care Pack Train Driver Name Role Phone Chente Villarreal Primary Care Provider [phone] Allergies Allergen (clinical drug ingredient) Drug/Non Drug Allergy documented on EMR Reaction Allergy Type Onset Date Status No Known Drug Allergy Unknown Drug Allergy Active Results Component Value Reference Range Notes URINE DIP STICK Reviewed date:07/17/2024 02:51:55 PM Interpretation: Performing Lab: Notes/Report: SG 1.010 1.005 - 1.025 pH 7.0 5.0 - 9.0 SILVER Negative Negative - NIT Negative Negative - PRO 15 Negative - Trace GLU Negative Negative - KET Negative Negative - UBG 0.2 0.1 - 1.8 WHIT Negative 0.2 - 1.3 BLD Negative Negative - Magnesium Reviewed date:06/30/2024 04:57:28 PM Interpretation: Performing Lab:[facility], [address] [place] [phone] Notes/Report: Magnesium 2.0 1.6-2.6 mg/dL Lipid Panel Reviewed date:06/30/2024 04:57:28 PM Interpretation: Performing Lab:[facility], [address] [place] [address] Notes/Report: Triglycerides 87 <150 mg/dL Desirable Triglyceride: less than 150 mg/dL Borderline High Triglyceride 150-199 mg/dL High Triglyceride: 200-499 mg/dL Very High Triglyceride: greater than or equal to 5OO mg/dL Cholesterol 203 <200 mg/dL Desirable Cholesterol: less than 200 mg/dL Borderline High Cholesterol: 200-239 mg/dL High Cholesterol: greater than 239 mg/dL LDL Cholesterol Calculated 137 <100 mg/dL Desirable LDL: less than 100 mg/dL Near Optimal/Above Optimal LDL: 110-129 mg/dL Borderline High LDL: 130-159 mg/dL High LDL: 160-189 mg/dL Very High LDL: greater than or equal to 190 mg/dL HDL Cholesterol 49 >40 mg/dL Desirable HDL: greater than 40 mg/dL Note: This HDL assay may give artificially low results in patients with liver disease. SCREENING COLONOSCOPY Reviewed date:07/17/2024 09:40:58 AM Interpretation:undefined Performing Lab: Notes/Report: undefined Complete Blood Count Auto Di ff Reviewed date:06/30/2024 04:57:28 PM Interpretation: Performing Lab:[facility], [address] [place] [phone] Notes/Report: White Blood Count 7.2 4.8-10.8 X10*3/uL Red Blood Count 5.64 4.60-5.80 X10*6/uL Hemoglobin 15.3 14.0-18.0 g/dl Hematocrit 47.0 42.0-52.0 % Mean Corpuscular Volume 83.3 80.0-98.0 fL Mean Corpuscular Hemoglobin 27.1 27.0-33.0 pg Mean Corpuscular HGB Conc 32.6 31.0-36.0 g/dl Red Cell Distribution Width 13.5 11.0-16.0 % Platelet Count 244 160-400 X10*3/uL Mean Platelet Volume 9.4 9.4-12.4 fL Neutrophils Percent Auto 50.8 45-73 % Imm Gran Pct Auto 0.4 0.0-0.4 % Lymphocytes Percent Auto 33.9 20-40 % Monocytes Percent Auto 8.7 2-11 % Eosinophils Percent Auto 5.5 0-4 % Basophils Percent Auto 0.7 0-2 % NRBC Pct Auto 0.0 0.0-0.2 /100WBC Neutrophils Absolute Auto 3.7 2.0-8.3 x10*3/u L Imm Gran Abs Auto 0.03 0.00-0.03 X10*3/uL Lymphocytes Absolute Auto 2.5 1.2-4.9 X10*3/u L Monocytes Absolute Auto 0.6 0.1-1.2 X10*3/uL Eosinophils Absolute Auto 0.4 0.0-0.4 X10*3/u L Basophils Absolute Auto 0.1 0.0-0.2 X10*3/uL NRBC Abs Auto 0.000 0.0-0.012 X10*3/uL Comprehensive [place]. Panel [facility] Reviewed date:06/30/2024 04:57:28 PM Interpretation: Performing Lab:[facility], [address] [place] [phone] Notes/Report: Sodium 141 135-145 mmol/L Potassium 4.4 3.3-5.1 mmol/L Chloride 109 96-108 mmol/L Carbon Dioxide 25 22-29 mmol/L Anion Gap 11 12-20 Blood Urea Nitrogen 16 9-16 mg/dL Creatinine 1.02 0.5-1.4 mg/dL Estimated Glomerular Filt Rate > 60 Chronic Kidney Disease: Estimated GFR < 60 mL/min/1.73m2 Severe Kidney Disease: Estimated GFR < 15 mL/min/1.73m2 Glucose Fasting 109 60-99 mg/dL A fasting glucose from 100-125 mg/dl is considered impaired (pre-diabetes). Calcium 9.5 8.4-10.2 mg/dL Bilirubin Total 0.5 0.0-1.0 mg/dL Aspartate Amino Transferase 38 5-37 U/L Alanine Aminotransferase 66 0-40 U/L Total Protein 7.9 6.5-8.0 g/dL Albumin Level 4.4 3.5-5.0 g/dL Alkaline Phosphatase 61 39-117 U/L Prostate Specific Antigen Reviewed date:06/30/2024 04:57:28 PM Interpretation: Performing Lab:[facility], [address] [place] [phone] Notes/Report: Prostate Specific Antigen 0.63 <0.05-4.0 ng/mL PSA methodology: St Alinity i Chemiluminescent Microparticle Immunoassay (CMIA) Reason For Referral No Information Medications Medication SIG (Take, Route, Frequency, Duration) Notes Start Date End Date Status Azithromycin 250 MG daily Orally 2 Table ts on the first day, one tablet the rest of the days for 5 days 08/18/2024 Active Omeprazole 20 MG 2 capsule Orally Onc e a day as needed Active Sildenafil Citrate 100 MG take 1 tablet by mouth once a day as needed Orally Once a day Active Immunizations Vaccine Route Administration Date Status Comme nts Influenza no Preserv 3 and > IM Intramuscular 07/20/2019 Administered COVID PFIZER Unknown 02/23/2021 Administered COVID PFIZER Unknown 08/18/2020 Administered COVID PFIZER Unknown 09/08/2020 Administered Influenza, quad Unknown 03/16/2020 Administered Influenza, quad Unknown 04/03/2018 Administered Comirnaty Pfizer COVID-19 12+ Unknown 05/04/2024 Administered Flu-IIv4pf Unknown 06/08/2022 Administered Social History Tobacco Use: Social History Observation Description Date Details (start date - stop date) Never Smoker NA - NA Sex Assigned At : Social History Observation Description Sex Assigned At Male Tobacco Use/Smoking Question Answer Notes Patient is a nonsmoker Additional Findings: Tobacco Non-User Aggressive non-smoker Tobacco Control (Standard) Question Answer Notes Tobacco use: Nonsmoker Additional Findings: Tobacco non-user Aggressive nonsmoker AUDIT-C (Standard) Question Answer Notes Did you have a drink containing alcohol in the p ast year? No Points 0 Interpretation Negative Problems Problem Type SNOMED Code ICD Code Onset Dates Problem Status W/U Status Risk Notes Problem 836776133841750 Obesity (BMI 30.0-34.9) (E66.9) Active confirmed He has gained 1 3 pounds since last December. We discussed diet and nutrition at length. We discussed all of his options for weight loss.He chose not to take medication. He declines to consider surgery. I recommended Weight Watchers or other such programs. We made a plan to lose weight at a rate of one half of a pound per week. A follow-up visit in a week's was made to way in and check blood pressure. Problem Hypomagnesemia (209644048) Hypomagnesemia (E83.42) Active confirmed And magnesium level will be done on his next blood work. Problem Erectile dysfunction (disorder) (702176912) Erectile dysfunction, unspecified erectile dysfunction type (N52.9) Active confirmed I have refilled his tadalafil which is still effective. He has recently had erectile dysfunction more frequently. This is likely due to the extreme weight gain. Problem Nephrolithiasis (77811980) Nephrolithiasis (N20.0) Active confirmed Since his last visit he has had no episodes of renal colic. He has had no dysuria or hematuria. Problem 1723900788 Left knee pain, unspecified chronicity (M25.562) Active confirmed Examination kne e was unremarkable today. I recommended ibuprofen and rest. There was no crepitus. Problem 290741396 Adenomatous polyp of colon, unspecified part of colon (D12.6) Active confirmed He says leah t he had 9 precancerous polyps on his last colonoscopy 2 years ago[address] st is going to do a colonoscopy every other year. He has 1 close relative who has the same regimen. Vital Signs Heart Rate 80 /min 07/17/2024 Blood pressure diastolic 78 mm Hg 07/17/2024 Height 75.5 in 07/17/2024 Blood pressure systolic 120 mm Hg 07/17/2024 Weight 275 lbs 07/17/2024 BMI 33.92 kg/m2 07/17/2024 Encounters Encounter Location Date Provider Diagnosis Chente Villarreal III, MD [address] [place] [address] [place] [address] 07/17/2024 Chente Villarreal Obesity (BMI 30.0-34 .9) E66.9 ; Erectile dysfunction, unspecified erectile dysfunction type N52.9 ; Fatigue R53.83 ; Adenomatous polyp of colon, unspecified part of colon D12.6 ; Left knee pain, unspecified chronicity M25.562 ; Nephrolithiasis N20.0 and Hypomagnesemia E83.42 Chente Villarreal III, MD [address] [place] [address] [place] [address] 04/24/2024 Chente Villarreal Obesity (BMI 30.0-34 .9) E66.9 and Annual physical exam Z00.00 Chente Villarreal III, MD [address] [place] [address] [place] [address] 06/25/2024 Chente Villarreal Erectile dysfunction , unspecified erectile dysfunction type N52.9 ; Obesity (BMI 30.0-34.9) E66.9 and Hypomagnesemia E83.42 Chente Villarreal III, MD [address] [place] [address] [place] [address] 08/18/2024 Chente Villarreal III, MD [address] [place] [address] [address] [place] [address] 08/18/2024 Chente Villarreal III, MD [address] [place] [address] [address] [place] [address] 08/20/2024 Chente Villarreal III, MD [address] [place] [address] [address] [place] [address] 06/26/2024 Chente Villarreal Assessments Encounter Date Diagnosis (ICD Code) Assessment Notes T reatment Notes Treatment Clinical Notes 07/17/2024 Obesity (BMI 30.0-34.9) (ICD-10 - E66.9) He has gained 13 pounds since last December. We discussed diet and nutrition at length. We discussed all of his options for weight loss.He chose not to take medication. He declines to consider surgery. I recommended Weight Watchers or other such programs. We made a plan to lose weight at a rate of one half of a pound per week. A follow-up visit in a week's was made to way in and check blood pressure. 07/17/2024 Erectile dysfunction, unspecified erectile dysfunction type (ICD-10 - N52.9) I have refilled his tadalafil which is still effective. He has recently had erectile dysfunction more frequently. This is likely due to the extreme weight gain. 04/24/2024 Obesity (BMI 30.0-34.9) (ICD-10 - E66.9) He has lost 4 pounds and now weighs 262 pounds. His body mass index is 32. We made a plan to lose weight at a rate of one half of a pound per week through a diet, reduced in fat, sodium, and calories. 06/25/2024 Erectile dysfunction, unspecified erectile dysfunction type (ICD-10 - N52.9) 07/17/2024 Fatigue (ICD-10 - R53.83) Comprehensive blood work has been requested along with a testosterone and magnesium. 04/24/2024 Annual physical exam (ICD-10 - Z00.00) He is due for a colonoscopy and was sent for that. We discussed weight loss and diet and nutrition. 06/25/2024 Obesity (BMI 30.0-34.9) (ICD-10 - E66.9) 07/17/2024 Adenomatous polyp of colon, unspecified part of colon (ICD-10 - D12.6) He says that he had 9 precancerous polyps on his last colonoscopy 2 years ago. 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 He has 1 close relative who has the same regimen. 06/25/2024 Hypomagnesemia (ICD-10 - E83.42) 07/17/2024 Left knee pain, unspecified chronicity (ICD-10 - M25.562) Examination knee was unremarkable today. I recommended ibuprofen and rest. There was no crepitus. 07/17/2024 Nephrolithiasis (ICD-10 - N20.0) Since his last visit he has had no episodes of renal colic. He has had no dysuria or hematuria. 07/17/2024 Hypomagnesemia (ICD-10 - E83.42) And magnesium level will be done on his next blood work. Plan Of Treatment Pending Test Test Name Order Date PROFILE, FASTING (COMPREHENSIVE METABOLI C) 11/28/2021 PROFILE, FASTING (COMPREHENSIVE METABOLI C) 06/25/2024 PROFILE, FASTING (COMPREHENSIVE METABOLI C) 2018 PROFILE, FASTING (COMPREHENSIVE METABOLI C) 11/28/2020 PROFILE, FASTING (COMPREHENSIVE METABOLI C) 01/18/2023 PROFILE, FASTING (COMPREHENSIVE METABOLI C) 01/17/2022 PROFILE, RANDOM (COMPREHENSIVE METABOLIC ) 07/20/2019 MAGNESIUM 01/18/2023 LIPID PANEL 2018 LIPID PANEL 11/28/2020 LIPID PANEL 01/18/2023 LIPID PANEL 01/17/2022 LDH 07/20/2019 FREE T4 (FT4) 07/20/2019 TSH (THYROID STIMULATING HORMONE) 2024 TSH (THYROID STIMULATING HORMONE) 2019 CPK 07/20/2019 PSA, TOTAL 01/18/2023 PSA, TOTAL 01/17/2022 PSA, TOTAL 11/28/2021 PSA, TOTAL 06/25/2024 PSA, TOTAL 2018 PSA, TOTAL 11/28/2020 CBC w DIFF 01/18/2023 CBC w DIFF 01/17/2022 CBC w DIFF 11/28/2021 CBC w DIFF 2018 CBC w DIFF 11/28/2020 CBC w DIFF 07/20/2019 SED RATE (ESR) 07/20/2019 CBC WITH AUTO DIFF 06/25/2024 Lipid Panel 11/28/2021 Free T4 (Free Thyroxine) 07/17/2024 Testosterone, Total 07/17/2024 Next Appt Details Provider Name:Chente Villarreal, 10/14/2024 10:45:00 AM, [address] [place] [address] [address], [place], [address], Provider Name:Chente Villarreal, 07/19/2025 09:30:00 AM, [address] [place] [address] [address], [place], [address], Insurance Providers Payer Name Payer Address Payer Phone Subscriber Number Group Number Insured Name Patient Relationship to Insured Coverage Start Date Coverage End Date [facility] [address] [place], [place] [id number] DINORA IRIZARRY Self - patient is the insured Medical (General) History Medical History History ICD Code Nephrolithiasis N20.0 Umbilical hernia K42.9 Hiatal hernia K44.9 GERD family history of colon cancer calcium oxalate ureterolithiasis history of laceration left second finger tendon repair erectile dysfunction [place] [facility] [place] obesity, body mass index 30 Colonic polyposis Surgical History Surgery Date(Month/Year) Colonoscopy, Dr. Chan, multiple adeno mas, 2 year plan 2022 herniorrhaphy, [facility] 2016 cut tendon of L index finger 2008 ureteral stent insertion for calcium oxa late stone obstruction 2014 nephrolithiasis 2008 Hospitalization History Reason Date(Month/Year) ureteral stent insertion 2014 No history
--- OUTSIDE RECORDS SUMMARY | 2024-09-17 09:02 | XMS_ITS ---
Author Organization Chente Villarreal III, MD Address [address] [place] [address] [place] [address] Care Team Providers Care Rn Acute Dialysis Name Role Phone Chente Villarreal Primary Care Provider Medications Medication SIG (Take, Route, Fr equency, Duration) Notes Start Date End Date Status Azithromycin 250 MG daily Orally 2 Table ts on the first day, one tablet the rest of the days for 5 days 08/18/2024 Active Social History Sex Assigned At : Social History Observation Description Sex Assigned At Male Encounters Encounter Location Date Provider Diagnosis Chente Villarreal III, MD [address] [place] [address] [place] [address] 08/18/2024 Chente Villarreal Plan Of Treatment Medication Medication Name Sig Start Date Stop Date Notes Azithromycin 250 MG daily Orally 2 Table ts on the first day, one tablet the rest of the days for 5 days 08/18/2024 Next Appt Details Provider Name:Chente Villarreal, 10/14/2024 10:45:00 AM, [address] [facility] [place], [address], Provider Name:Chente Villarreal, 07/19/2025 09:30:00 AM, [address] [facility] [place], [address], Progress Notes * DINORA IRIZARRYDODirk:1975 (48 yo M)Acc No.[id number]:08/18/2024 Patient:DINORA [address]OK[address] :1975???Age:48 Y???Sex:Male Address[place], [address] * Refills? Start Azithromycin Tablet, 250 MG, Orally, 6, daily, 2 Tablets on the first day, one tablet the rest of the days, 5 days, Refills=0 * true * Date:? Generated for Jamila barrera/Colleen/eTransmitting on:?09/17/2024 09:01 AM EDT
--- OUTSIDE RECORDS SUMMARY | 2024-09-17 09:02 | XMS_ITS | Clinical Summary ---
Author Organization [facility] Address [address] [place] [address] Care Team Providers Care Electric Range Preparer Name Role Phone Unavailable Primary Care Provider Unavailabl e Social History Tobacco Use Types Packs/Day Years Used Date Smoking Tobacco: Never Assessed Sex and Gender Information Value Date Recorded Sex Assigned at Not on file Gender Identity Not on file Sexual Orientation Not on file Job Start Date Occupation Industry Not on file Not on file Not on file Plan of Treatment Not on file
--- OUTSIDE RECORDS SUMMARY | 2024-09-17 09:02 | XMS_ITS ---
Author Organization Chente Villarreal III, MD Address [address] [place] [address] [place] [address] Care Team Providers Care Dispensing And Measuring Optician Name Role Phone Chente Villarreal Primary Care Provider REASON FOR VISIT told patient to call Social History Sex Assigned At : Social History Observation Description Sex Assigned At Male Encounters Encounter Location Date Provider Diagnosis Chente Villarreal III, MD [address] [place] [address] [place] [address] 08/20/2024 Chente Villarreal Plan Of Treatment Next Appt Details Provider Name:Chente Villarreal, 10/14/2024 10:45:00 AM, [address] [place] [address] [place], [address], Provider Name:Chente Villarreal, 07/19/2025 09:30:00 AM, [address] [place] [address] [place], [address], Progress Notes * DINORA IRIZARRYDOB:1975 (48 yo M)Acc No.[id number]:08/20/2024 Patient:DINORA STOKES :1975???Age:48 Y???Sex:Male Address:[address] [place], [address] * true * Date:? Generated for Printi ng/Colleen/Benoititting on:?09/17/2024 09:01 AM EDT
== END 2024-09-17 08:32 | disposition home or self-care (01) ==
LOC: HO.US 08:31
PROVIDERS: PCP Internal Medicine Medical Oncology; Visit Provider Nurse Practitioner Family
DX: N20.0 Calculus of kidney (principal)
CPT/HCPCS: 76775

== ENCOUNTER → 2024-09-17 08:35 | Outpatient (BNV) | payer BC, SELFPAY | PROVIDERS: PCP Internal Medicine Medical Oncology; Visit Provider Radiology Diagnostic Radiology | DX: N20.0 Calculus of kidney (principal); N28.1 Cyst of kidney, acquired | CPT/HCPCS: 76775 ==

== ENCOUNTER 2024-10-21 10:13 | Outpatient (AMB) | payer BC, SELFPAY ==
--- NOTE | 2024-10-21 10:20 | MHC.OFFVIS ---
Intake Visit Reasons: 1y/ US(set) Intake Note: Patient presents today for a 1 year follow up/US Urology Meds- None Allergies to Antibiotic- No Known Allergies Blood Thinner- None Invoice Classification Clerk Required: No Accompanied by: Self / Same As Patient Allergies No Known Allergies Allergy (Verified 10/21/24 10:39) Medication List - Last Reconciled 10/21/24 by KENDRICK Barnett omeprazole 40 mg PO DAILY PRN HPI Comments Details: Damaso is a very pleasant 48-year-old male patient of . He has a past medical history of GERD and nephrolithiasis. He presents to the office today for a follow-up of his nephrolithiasis. He denies having had any bothersome urinary issues or concerns since his last office visit here over a year ago. Recent renal imaging results reviewed with the patient today 09/15 bilateral kidneys are normal in size, contour, and echogenicity. No hydronephrosis noted bilaterally. Twinkle artifact noted to the left kidney. There is again seen and interpolar cyst in the right kidney measuring 9 mm. Patient with a history of surgical intervention 04/03/[address] Poon for left distal ureteric stone. He discusses his longstanding history of nephrolithiasis in the past with Dr. Niño. He discusses having increased his water intake. When asked he denies any bothersome urinary issues or concerns. He denies urinary urgency, urinary frequency, incontinence, nocturia, hematuria, dysuria, foul smelling urine, changes to urinary stream, flank pain, fever, and or chills. He is happy with his current voiding parameters. In office urinalysis results reviewed with the patient today. He otherwise offers no other issues or concerns at this time. 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 Review of Systems Const All systems reviewed & are unremarkable except as noted in HPI and below Physical Exam Const General: cooperative, healthy appearing, comfortable, no acute distress, well developed, alert and awake Nutritional Appearance: overweight Orientation/consciousness: patient oriented x3 Limitations: no limitations HEENT Head: Yes normal to inspection, Yes normocephalic and Yes atraumatic Ears: hearing grossly normal bilaterally Eyes General: appearance normal, both eyes and all related structures Neck Neck: Yes normal visual inspection and Yes trachea midline Chest Chest palpation & inspection: normal inspection of the chest Resp Effort & Inspection: normal respiratory effort and able to speak in complete sentences Cardio Rate: regular rate GI Other: round Inspection: Yes normal to inspection General: Yes no CVA tenderness Back/Spine/Pelvis Back: no CVA tenderness Skin General skin exam: no rashes or lesions noted Neuro General: patient oriented x3 Extrem General: Yes normal to inspection Psych Appearance: grossly normal and well kempt Mental Status: mental status grossly normal Speech and movement: Normal speech and movement present and Clear speech present Affect: normal affect Attitude: cooperative Thought process: Normal thought process present Thought content: Normal thought content present Insight: Fair insight present (Psych) Judgement: Fair judgement present (Psych) Results AMB Urinalysis, Automated UA Leukoctes 0 Emilia/uL Last Edit by Lilia Pereyra on 10/21/24 10:34 UA Nitrite Negative Last Edit by Lilia Pereyra on 10/21/24 10:34 UA Urobilinogen 1 mg/dL Last Edit by Lilia Pereyra on 10/21/24 10:34 UA Protein 30 mg/dL Last Edit by Lilia Pereyra on 10/21/24 10:34 UA pH 5.5 Last Edit by Lilia Pereyra on 10/21/24 10:34 UA Blood 0 Burak/uL Last Edit by Lilia Pereyra on 10/21/24 10:34 UA Specific [place] 1.030 Last Edit by Lilia Pereyra on 10/21/24 10:34 UA Ketone Positive Last Edit by Lilia Pereyra on 10/21/24 10:34 UA Bilirubin 2 mg/dL Last Edit by Lilia Pereyra on 10/21/24 10:34 UA Glucose 100 mg/dL Last Edit by Lilia Pereyra on 10/21/24 10:34 Results Reviewed Results Reviewed: Laboratory Last Values Urine pH (Auto) 5.5 10/21/24 08:12 Specific [place] (Auto) 1.030 10/21/24 08:12 Urine Protein (Auto) 30 mg/dL 10/21/24 08:12 Glucose (UA)(Auto) 100 mg/dL 10/21/24 08:12 Urine Ketones (Auto) Positive 10/21/24 08:12 Urine Blood (Auto) 0 Burak/uL 10/21/24 08:12 Urine Nitrite (Auto) Negative 10/21/24 08:12 Urine Bilirubin (Auto) 2 mg/dL 10/21/24 08:12 Urine Urobilinogen (Auto) 1 mg/dL 10/21/24 08:12 Leukocyte Esterase (Auto) 0 Emilia/uL 10/21/24 08:12 Date of Service: 09/17/24 Procedure(s): US renal BI FINDINGS: Right kidney: The right kidney measures 13.7 x 6.6 x 6.0 cm. Renal parenchymal echotexture and thickness are normal. Again seen is an interpolar cyst measuring 9 x 5 x 7 mm. There is no hydronephrosis or renal calculi. Left Kidney: The left kidney measures 12.9 x 7.0 x 5.3 cm. Renal parenchymal echotexture and thickness are normal. There are no masses. Again seen is a twinkle artifact at the lower pole of the left kidney, suggestive of a calculus. However, no discrete calculus is seen on grayscale imaging. There is no hydronephrosis. US/US renal BI IMPRESSION: Subcentimeter right renal cyst. Possible nonobstructing calculus at the lower pole of the left kidney as described. Assessment & Plan Assessment & Plan (1) Renal cyst: Code(s): N28.1 - Cyst of kidney, acquired Category: Medical (2) Nephrolithiasis: Code(s): N20.0 - Calculus of kidney Category: Medical Plan In office urinalysis results reviewed with the patient today; as noted above. Recent renal imaging results reviewed with the patient today; as noted above. Patient currently denies any bothersome urinary issues or concerns. He reports be happy with current voiding parameters. We discussed importance of continuing to drink plenty of water daily in relation to nephrolithiasis as well as overall health and well-being. Continue adding 1 oz of lemon juice to water daily. Will obtain renal ultrasound in 1 year. Follow-up in 1 year with imaging to be completed prior; or sooner with any issues, concerns, and or questions. Orders: Orders AMB Urinalysis Automated Today Z13.9 - Encounter for screening, unspecified US renal BI 1 Year N20.0 - Calculus of kidney Patient Instructions: The patient had an opportunity to ask questions regarding the treatment plan. All questions were answered. Physical exam, labs, and imaging were discussed and reviewed in detail. As well as risks, benefits, and discussion of treatment choices. No major barriers to understanding were identified. The patient expressed understanding and agreement with the above treatment plan. The patient was made aware they should contact our office by phone for worsening of their current condition, the appearance of new symptoms, or with any questions or concerns. Compliance is encouraged with any medications and follow up testing that is ordered. It is a privilege to be allowed the opportunity to participate in? your urological care.? Again, if you have any questions or concerns If you have any questions or concerns please do not hesitate to contact me. The office is [phone]. This note is constructed using voice recognition software. While every effort has been made to ensure accuracy dental equipment installer and servicer errors may have been included. Yours sincerely, KENDRICK Barnett Coding Level of Care Code Est Pt Level 3 (58264) Diagnoses Renal cyst N28.1 Nephrolithiasis N20.0
--- OUTSIDE RECORDS SUMMARY | 2024-10-21 11:24 | XMS_ITS | Clinical Summary ---
Author Organization [facility] Address [address] [place] [address] Care Team Providers Care Chart Calculator Name Role Phone Unavailable Primary Care Provider [...]
== END 2024-10-21 11:03 | disposition home or self-care (01) ==
LOC: HO.HUSH 10:14
PROVIDERS: PCP Internal Medicine Medical Oncology; Visit Provider Nurse Practitioner Family
DX: N28.1 Cyst of kidney, acquired (principal); N20.0 Calculus of kidney; Z13.9 Encounter for screening, unspecified
CPT/HCPCS: 99213

== ENCOUNTER → 2024-10-21 10:13 | Outpatient (BNVA) | payer BC, SELFPAY | PROVIDERS: PCP Internal Medicine Medical Oncology; Visit Provider Nurse Practitioner Family | DX: N20.0 Calculus of kidney (principal); N28.1 Cyst of kidney, acquired | CPT/HCPCS: 81003 ==

== ENCOUNTER 2025-01-18 09:35 | Outpatient (REF) | payer BC, SELFPAY ==
--- OUTSIDE RECORDS SUMMARY | 2024-10-03 10:41 | XMS_ITS | Encounter Summary ---
Author Organization [facility] Address [address] [place] [phone] Phone Care Team Providers Care Dishcloth Folder Name Role Phone Chente Villarreal MD Primary Care Provider [phone] Encounter Details Date Type Department Care Team (Late st Contact Info) Description 10/03/2024 10:41 AM EDT Hospital Encounter [facility] [address] [place] [id number] Zahraa Jalloh PA-C, MS [address] [place], [place] [id number] [email or web address] Social History Tobacco Use Types Packs/Day Years Used Date Smoking Tobacco: Never Assessed Education Answer Date Recorded Are you interested in more education? Not on tani e 10/03/2024 Are you concerned about learning? Not on file 10/03/2024 No 10/03/2024 No 10/03/2024 Digital Access Answer Date Recorded No 10/03/2024 No 10/03/2024 Reliable internet access at home? Not on file 10/03/2024 Device with a working camera? Not on file Sex and Gender Information Value Date Recorded Sex Assigned at Not on file Legal Sex Male 9:30 AM EDT Gender Identity Not on file Sexual Orientation Not on file documented as of this encounter Plan of Treatment Not on file documented as of this encounter Procedures Procedure Name Priority Date/Time Associated Diagnosis Comments XR CHEST PA AND LATERAL 2 VIEWS Urgent/patient waiting 10/03/2024 10:53 AM EDT Viral illness documented in this encounter Results * XR CHEST PA AND LATERAL 2 VIEWS (10/03/2024 10:53 AM EDT) Anatomical Region Laterality Modality Chest Computed Radiogr aphy 10/03/2024 11:4 4 AM EDT Impressions 10/03/2024 11:44 AM EDT No acute radiographic abnormality. Narrative 10/03/2024 11:44 AM EDT XR CHEST PA AND LATERAL 2 VIEWS Referring clinician's provided indication for this examination in [facility]: Cough; x4 days, pneumonia exposure, hx of pneumothorax COMPARISON: None. FINDINGS: Devices/Tubes/Lines: None. Lungs: No consolidation or significant pulmonary edema. Pleura: No pleural effusion or pneumothorax. Heart/Mediastinum: The cardiomediastinal silhouette is normal. Bones/Soft Tissues: No acute skeletal abnormality. Procedure Note Jeremy Toscano MD - 10/03/2024 XR CHEST PA AND LATERAL 2 VIEWS Referring clinician's provided indication for this examination in [facility]:Cough; x4 days, pneumonia exposure, hx of pneumothorax COMPARISON: None. FINDINGS: Devices/Tubes/Lines: None. Lungs: No consolidation or significant pulmonary edema. Pleura: No pleural effusion or pneumothorax. Heart/Mediastinum: The cardiomediastinal silhouette is normal. Bones/Soft Tissues: No acute skeletal abnormality. IMPRESSION: No acute radiographic abnormality. Zahraa Jalloh PA-C, MS IMG XR CHEST Fi nal Result documented in this encounter Visit Diagnoses Not on filedocumented in this encounter Additional Health Concerns Infection Onset Date Last Indicated Resolved Time CoV-Risk 10/03/2024 10/03/2024 10/14/2024 1:21 AM EDT documented as of this encounter Care Teams Dishcloth Folder Relationship Specialty Start Date End Date Chente Villarreal MD [address] [place] [id number] PCP - General Medical Oncology 10/03/24 documented as of this encounter Additional Source Comments The information contained in this document represents components of the legal health record. It is not the complete legal health record.[facility]
--- NOTE | ~2025-01-18 | XR_ITS ---
EXAMINATION: XR CHEST CLINICAL INFORMATION: HEMOPTYSIS COMPARISON: November 17, 2016. TECHNIQUE: 2 views of the chest were obtained. FINDINGS: No consolidation, pleural effusion or pneumothorax. No hyperinflation.. Cardiomediastinal silhouette size is normal. Mild multilevel thoracolumbar spondylosis. Mild S-shaped curvature of the mid thoracic spine. XR/XR chest 2V IMPRESSION: No acute airspace disease. Electronically signed by: Quan Burgess MD 01/18/2025 10:18 AM EDT
--- OUTSIDE RECORDS SUMMARY | 2025-01-18 10:26 | XMS_ITS | Clinical Summary ---
Author Organization [facility] Address [address] [place] [address] Care Team Providers Care Special Equipment Technician Name Role Phone Unavailable Primary Care Provider [...]
--- OUTSIDE RECORDS SUMMARY | 2025-01-18 10:26 | XMS_ITS | Patient Health Record ---
Author Organization Chente Villarreal III, MD Address [address] [place] [address] Care Team Providers Care Banking Consultant Name Role Phone Chente Villarreal Primary Care Provider Allergies Allergen (clinical drug ingredient) Drug/Non Drug [...] Magnesium Reviewed date:06/30/2024 04:57:28 PM Interpretation: Performing Lab:[facility], [address] [place] [phone] Notes/Report: Magnesium 2.0 1.6-2.6 mg/dL Lipid Panel Reviewed date:06/30/2024 04:57:28 PM Interpretation: Performing Lab:[facility], [address] [place] [phone] Notes/Report: Triglycerides 87 <150 mg/dL Desirable Triglyceride: [...] low results in patients with liver disease. Complete Blood Count Auto Di ff Reviewed date:06/30/2024 04:57:28 PM Interpretation: Performing Lab:[facility], [address] [place] [phone] Notes/Report: White Blood Count 7.2 4.8-10.8 X10*3/uL [...] 0.0-0.2 /100WBC Neutrophils Absolute Auto 3.7 2.0-8.3 x10*3/uL Imm Gran Abs Auto 0.03 0.00-0.03 X10*3/uL Lymphocytes Absolute Auto 2.5 1.2-4.9 X10*3/uL Monocytes Absolute Auto 0.6 0.1-1.2 X10*3/uL Eosinophils Absolute Auto 0.4 0.0-0.4 X10*3/uL Basophils Absolute Auto 0.1 0.0-0.2 X10*3/uL NRBC Abs Auto 0.000 0.0-0.012 X10*3/uL Comprehensive [place]. Panel [facility] Reviewed date:06/30/2024 04:57:28 PM Interpretation: Performing Lab:[facility], [address] [place] [phone] Notes/Report: Sodium 141 135-145 mmol/L Potassium 4.4 [...] Antigen Reviewed date:06/30/2024 04:57:28 PM Interpretation: Performing Lab:[facility], [address] [place] [phone] Notes/Report: Prostate Specific Antigen 0.63 <0.05-4.0 ng/mL PSA methodology: St Alinity i Chemiluminescent Microparticle Immunoassay (CMIA) US renal BI Reviewed date:09/19/2024 08:14:09 AM Interpretation: Performing Lab: Notes/Report: [address] [place] [address] Ultrasound Report Signed Patient: Damaso Irizarry MR#: [id number] 872 : 1975 Acct:[id number] Age/Sex: 48 / M ADM Date: 09/17/24 Loc: HO.US Attending Dr: Terri MARKS Ordering Physician: Terri Marroquin Date of Service: 09/17/24 Procedure(s): US renal BI Accession Number(s): [id number] cc: Chente Villarreal MD; Terri Marroquin EXAMINATION: US KIDNEY BILATERAL HISTORY: N20.0 - Calculus of kidney TECHNIQUE: Real-time grayscale ultrasound imaging of the kidneys was performed and images were reviewed. COMPARISON: Comparison is made with the prior examination dated 08/01/2023. FINDINGS: Right kidney: The right kidney measures 13.7 x 6.6 x 6.0 cm. Renal parenchymal echotexture and thickness are normal. Again seen is an interpolar cyst measuring 9 x 5 x 7 mm. There is no hydronephrosis or renal calculi. Left Kidney: The left kidney measures 12.9 x 7.0 x 5.3 cm. Renal parenchymal echotexture and thickness are normal. There are no masses. Again seen is a twinkle artifact at the lower pole of the left kidney, suggestive of a calculus. However, no discrete calculus is seen on grayscale imaging. There is no hydronephrosis. US/US renal BI IMPRESSION: Subcentimeter right renal cyst. Possible nonobstructing calculus at the lower pole of the left kidney as described. Electronically signed by: Chente Og MD 09/17/2024 09:06 AM EDT Dictated By: Chente Og MD Signed By: <Electronically signed by Chente Og MD in OV> 09/17/24 0906 DD/ 0843 TD/TT: 09/17/24 0854 Data Processor: [address] [address] Ultrasound Report Signed Patient: Noe Irizarry on D MR#: [id number] 872 : 1975 Acct:[id number] Age/Sex: 48 / M ADM Date: 09/17/24 Loc: HO.US Attending Dr: Terri ellis [facility] Ordering Physician: Terri Marroquin Date of Service: 09/17/24 Procedure(s): US renal BI Accession Number(s): [id number] cc: Chente Villarreal MD; Terri Marroquin EXAMINATION: US KIDN EY BILATERAL HISTORY: N20.0 - Abhi culus of kidney TECHNIQUE: Real-time grayscale ultrasound imaging of the kidneys was performed and images were reviewed. COMPARISON: Comparis on is made with the prior examination dated 08/01/2023. FINDINGS: Right kidney: The ri ght kidney measures 13.7 x 6.6 x 6.0 cm. Renal parenchymal echotext ure and thickness are normal. Again seen is an interpolar cyst alejandro uring 9 x 5 x 7 mm. There is no hydronephrosis or renal calculi. Left Kidney: The lef t kidney measures 12.9 x 7.0 x 5.3 cm. Renal parenchymal echotext ure and thickness are normal. There are no masses. Again seen is a twi nkle artifact at the lower pole of the left kidney, suggestive o f a calculus. However, no discrete calculus is seen on grayscale imaging . There is no hydronephrosis. U S/US renal BI IMPRESSION: Subcentimeter right renal cyst. Possible nonobstructing calculus at the lower pole of the le ft kidney as described. Electronically linsey d by: Chente Og MD 09/17/2024 09:06 AM EDT Dictated By: Chente Og MD Signed By: <Electronically signed by Chente Og MD in OV> 09/17/24 0906 DD/ 0843 TD/TT: 09/17/24 0854 Data Processor: XR chest 2V (Not yet reviewe d by provider) Interpretation: Performing Lab: Notes/Report: [address] [address] XRay Report Signed Patient: Damaso Irizarry MR#: [id number] 872 : 1975 Acct:[id number] Age/Sex: 49 / M ADM Date: 01/18/25 Loc: HO.XRAY Attending Dr: Chente Villarreal MD Ordering Physician: Chente Villarreal MD Date of Service: 01/18/25 Procedure(s): XR chest 2V Accession Number(s): [id number] cc: Chente Villarreal MD EXAMINATION: XR CHEST CLINICAL INFORMATION: HEMOPTYSIS COMPARISON: November 17, 2016. TECHNIQUE: 2 views of the chest were obtained. FINDINGS: No consolidation, pleural effusion or pneumothorax. No hyperinflation.. Cardiomediastinal silhouette size is normal. Mild multilevel thoracolumbar spondylosis. Mild S-shaped curvature of the mid thoracic spine. XR/XR chest 2V IMPRESSION: No acute airspace disease. Electronically signed by: Quan Burgess MD 01/18/2025 10:18 AM EDT RP Dictated By: Quan Taylor MD Signed By: <Electronically signed by Quan Carroll MD in OV> 01/18/25 1018 DD/ 0956 TD/TT: 01/18/25 1002 Data Processor: [place] [address] XRay Report Signed Patient: Noe Irizarry on D MR#: [id number] 872 : 1975 Acct:[id number] Age/Sex: 49 / M ADM Date: 01/18/25 Loc: HO.XRAY Attending Dr: Chente Villarreal MD Ordering Physician: Chente Villarreal MD Date of Service: 01/18/25 Procedure(s): XR chest 2V Accession Number(s): [id number] cc: Chente Villarreal MD EXAMINATION: XR CHEST CLINICAL INFORMATION: HEMOPTYSIS COMPARISON: November 17, 2016. TECHNIQUE: 2 views of the chest were obtained. FINDINGS: No consolidation, pl eural effusion or pneumothorax. No hyperinflation.. Cardiomediastinal silhouette size is normal. Mild multilevel thoracolumbar spondylosis. Mild S-shaped curvature of the mid thoracic spine. X R/XR chest 2V IMPRESSION: No acute airspace disease. Electronically linsey d by: Quan Buregss MD 01/18/2025 10:18 AM EDT RP Dictated By: Quan Sadler MD Signed By: <Electronically signed by Quan Carroll MD in OV> 01/18/25 1018 DD/ 0956 TD/TT: 01/18/25 1002 Data Processor: Reason For Referral No Information Medications Medication [...] Observation Description Sex Assigned At Male Tobacco Control (Standard) Question Answer Notes Tobacco use: Nonsmoker Additional Findings: Tobacco non-user Aggressive nonsmoker AUDIT-C (Standard) Question Answer Notes Did you have a drink containing alcohol in the p ast year? No Points 0 Interpretation Negative Problems Problem Type SNOMED Code ICD Code Onset Dates Problem Status W/U Status Risk Notes Problem [id number] Obesity (BMI 30.0-34.9) (E66.9) Active confirmed He continues hi s efforts at weight loss. He remains in the obese range. We discussed diet and nutrition at length. We made a plan to lose weight at a rate of 1 pound per week through diet and exercise. Problem Hypomagnesemia (105610002) Hypomagnesemia (E83.42) Active confirmed A magnesium level has been ordered. We will await the results. Problem 434223458 Acute bronchitis due to other specified organisms (J20.8) Active confirmed He had a viral syndrome and was beginning to recover when he developed take cough Green phlegm and weakness, and a repeat fever of 101. He was given an antibiotic. If necessary, he will have a chest x-ray and an office visit. Problem Erectile dysfunction (disorder) (387268567) Erectile dysfunction, unspecified erectile dysfunction type (N52.9) Active confirmed This problem doyle s been resolved with use of medication. Problem Nephrolithiasis (38259503) Nephrolithiasis (N20.0) Active confirmed Since his last visit he has had no episodes of renal colic. He has had no dysuria or hematuria.The recent ultrasound of September 17, 2024 showed no serious conditions. Problem 2332939149 Left knee pain, unspecified chronicity (M25.562) Active confirmed Examination kne e was unremarkable today. I recommended ibuprofen and rest. There was no crepitus. Problem 824181928 Adenomatous polyp of colon, unspecified part of colon (D12.6) Active confirmed He says leah t he had 9 precancerous polyps on his last colonoscopy 2 years ago[address] st is going to do a colonoscopy every other year. He has 1 close relative who has the same regimen. Vital Signs Heart Rate 81 /min 01/18/2025 Temperature 98.0 degrees Fahrenheit 01/18/2025 Oximetry 96 % 01/18/2025 Blood pressure diastolic 78 mm Hg 01/18/2025 Height 75.5 in 01/18/2025 Blood pressure systolic 136 mm Hg 01/18/2025 Weight 271 lbs 01/18/2025 BMI 33.42 kg/m2 01/18/2025 Encounters Encounter Location Date Provider Diagnosis Chente Villarreal III, MD [address] [place] [address] [place] [phone] 01/18/2025 Chente Villarreal Obesity (BMI 30.0-34 .9) E66.9 and Hemoptysis R04.2 Chente Villarreal III, MD [address] [place] [address] [place] [phone] 07/17/2024 Chente Villarreal Obesity (BMI 30.0-34 .9) E66.9 ; Erectile dysfunction, unspecified erectile dysfunction type N52.9 ; Fatigue R53.83 ; Adenomatous polyp of colon, unspecified part of colon D12.6 ; Left knee pain, unspecified chronicity M25.562 ; Nephrolithiasis N20.0 and Hypomagnesemia E83.42 Chente Villarreal III, MD [address] [place] [address] [place] [phone] 10/05/2024 Chente Villarreal Obesity (BMI 30.0-34 .9) E66.9 ; Acute bronchitis due to other specified organisms J20.8 ; Left knee pain, unspecified chronicity M25.562 and Hypomagnesemia E83.42 Chente Villarreal III, MD [address] [place] [address] [place] [phone] 11/06/2024 Chente Villarreal Obesity (BMI 30.0-34 .9) E66.9 ; Erectile dysfunction, unspecified erectile dysfunction type N52.9 ; Hypomagnesemia E83.42 ; Left knee pain, unspecified chronicity M25.562 and Nephrolithiasis N20.0 Chente Villarreal III, MD [address] [place] [address] [place] [address] 04/24/2024 Chente Villarreal Obesity (BMI 30.0-34 .9) E66.9 and Annual physical exam Z00.00 Chente Villarreal III, MD [address] [place] [address] [place] [address] 06/25/2024 Chente Villarreal Erectile dysfunction , unspecified erectile dysfunction type N52.9 ; Obesity (BMI 30.0-34.9) E66.9 and Hypomagnesemia E83.42 Chente Villarreal III, MD [address] [place] [address] [place] [phone] 08/18/2024 Chente Villarreal III, MD [address] [place] [address] [place] [address] 08/18/2024 Chente Villarreal III, MD [address] [place] [address] [place] [phone] 08/20/2024 Chente Villarreal III, MD [address] [place] [address] [place] [address] 01/13/2025 Chente Villarreal III, MD [address] [place] [address] [place] [phone] 06/26/2024 Chente Villarreal Assessments Encounter Date Diagnosis (ICD Code) Assessment Notes T reatment Notes Treatment Clinical Notes 01/18/2025 Obesity (BMI 30.0-34.9) (ICD-10 - E66.9) He continues his efforts at weight loss. He remains in the obese range. We discussed diet and nutrition at length. We made a plan to lose weight at a rate of 1 pound per week through diet and exercise. 07/17/2024 Obesity (BMI 30.0-34.9) (ICD-10 - E66.9) [...] likely due to the extreme weight gain. 10/05/2024 Obesity (BMI 30.0-34.9) (ICD-10 - E66.9) He says he still weighs 275 pounds. He is trying to lose weight. His body mass index is 33. 10/05/2024 Acute bronchitis due to other specified organisms (ICD-10 - J20.8) He had a viral syndrome and was beginning to recover when he developed take cough Green phlegm and weakness, and a repeat fever of 101. He was given an antibiotic. If necessary, he will have a chest x-ray and an office visit. 11/06/2024 Obesity (BMI 30.0-34.9) (ICD-10 - E66.9) He continues his efforts at weight loss. He remains in the obese range. We discussed diet and nutrition at length. We made a plan to lose weight at a rate of 1 pound per week through diet and exercise. 11/06/2024 Erectile dysfunction, unspecified erectile dysfunction type (ICD-10 - N52.9) This problem has been resolved with use of medication. 04/24/2024 Obesity (BMI 30.0-34.9) (ICD-10 - E66.9) He has lost 4 pounds and now weighs 262 pounds. His body mass index is 32. We made a plan to lose weight at a rate of one half of a pound per week through a diet, reduced in fat, sodium, and calories. 06/25/2024 Erectile dysfunction, unspecified erectile dysfunction type (ICD-10 - N52.9) 01/18/2025 Hemoptysis (ICD-10 - R04.2) 07/17/2024 Fatigue (ICD-10 - R53.83) Comprehensive blood work has been requested along with a testosterone and magnesium. 10/05/2024 Left knee pain, unspecified chronicity (ICD-10 - M25.562) Examination knee was unremarkable today. I recommended ibuprofen and rest. There was no crepitus. 11/06/2024 Hypomagnesemia (ICD-10 - E83.42) A magnesium level has been ordered. We will await the results. 04/24/2024 Annual physical exam (ICD-10 - Z00.00) He is due for a colonoscopy and was sent for that. We discussed weight loss and diet and nutrition. 06/25/2024 Obesity (BMI 30.0-34.9) (ICD-10 - E66.9) 07/17/2024 Adenomatous polyp of colon, unspecified part of colon (ICD-10 - D12.6) He says that he had 9 precancerous polyps on his last colonoscopy 2 years ago. His stone breaker is going to do a colonoscopy every other year. He has 1 close relative who has the same regimen. 10/05/2024 Hypomagnesemia (ICD-10 - E83.42) And magnesium level will be done on his next blood work. 11/06/2024 Left knee pain, unspecified chronicity (ICD-10 - M25.562) Examination knee was unremarkable today. I recommended ibuprofen and rest. There was no crepitus. 06/25/2024 Hypomagnesemia (ICD-10 - E83.42) 07/17/2024 Left knee pain, unspecified chronicity (ICD-10 - M25.562) Examination knee was unremarkable today. I recommended ibuprofen and rest. There was no crepitus. 11/06/2024 Nephrolithiasis (ICD-10 - N20.0) Since his last visit he has had no episodes of renal colic. He has had no dysuria or hematuria.The recent ultrasound of September 17, 2024 showed no serious conditions. 07/17/2024 Nephrolithiasis (ICD-10 - N20.0) Since his last visit he has had no episodes of renal colic. He has had no dysuria or hematuria. 07/17/2024 Hypomagnesemia (ICD-10 - E83.42) And magnesium level will be done on his next blood work. Plan Of Treatment Pending Test Test Name Order Date PROFILE, FASTING (COMPREHENSIVE METABOLI C) 01/17/2022 PROFILE, FASTING (COMPREHENSIVE METABOLI C) 06/25/2024 PROFILE, FASTING (COMPREHENSIVE METABOLI C) 11/28/2021 PROFILE, FASTING (COMPREHENSIVE METABOLI C) 11/06/2024 PROFILE, FASTING (COMPREHENSIVE METABOLI C) 2018 PROFILE, FASTING (COMPREHENSIVE METABOLI C) 11/28/2020 PROFILE, FASTING (COMPREHENSIVE METABOLI C) 01/18/2023 PROFILE, RANDOM (COMPREHENSIVE METABOLIC ) 07/20/2019 MAGNESIUM 01/18/2023 LIPID PANEL 01/18/2023 LIPID PANEL 01/17/2022 LIPID PANEL 2018 LIPID PANEL 11/28/2020 LDH 07/20/2019 FREE T4 (FT4) 07/20/2019 TSH (THYROID STIMULATING HORMONE) 2024 TSH (THYROID STIMULATING HORMONE) 2019 CPK 07/20/2019 PSA, TOTAL 01/18/2023 PSA, TOTAL 06/25/2024 PSA, TOTAL 01/17/2022 PSA, TOTAL 11/28/2021 PSA, TOTAL 11/06/2024 PSA, TOTAL 2018 PSA, TOTAL 11/28/2020 CBC w DIFF 2018 CBC w DIFF 11/28/2020 CBC w DIFF 07/20/2019 CBC w DIFF 01/18/2023 CBC w DIFF 01/17/2022 CBC w DIFF 11/06/2024 CBC w DIFF 11/28/2021 SED RATE (ESR) 07/20/2019 XR CHEST 2 VIEW PA & LAT 01/18/2025 CBC WITH AUTO DIFF 06/25/2024 Magnesium 11/06/2024 Lipid Panel 11/06/2024 Lipid Panel 11/28/2021 Free T4 (Free Thyroxine) 07/17/2024 Testosterone, Total 07/17/2024 XR chest 2V 01/18/2025 Next Appt Details Provider Name:Chente Kelleyrne, 01/22/2025 02:00:00 PM, [address] [place] [address] [address], [place], [address], Provider Name:Chente Villarreal, 07/19/2025 09:30:00 AM, [address] [place] [address] [address], [place], [address], Insurance Providers Payer Name Payer Address Payer Phone Subscriber Number Group Number Insured Name Patient Relationship to Insured Coverage Start Date Coverage End Date [facility] [address] [place], [place] [phone] [phone] [id number] DAMASO IRIZARRY Self - patient is the insured Medical (General) History Medical History History ICD Code Nephrolithiasis N20.0 Umbilical hernia K42.9 Hiatal hernia K44.9 GERD family history of colon cancer calcium oxalate ureterolithiasis history of laceration left second finger tendon repair erectile dysfunction herniorrhaphy 2016, [facility], Dr. Palm obesity, body mass index 30 Colonic polyposis Surgical History Surgery Date(Month/Year) Colonoscopy, Dr. Chan, multiple adeno mas, 2 year plan 2022 herniorrhaphy, [facility] 2016 cut tendon of L index finger 2008 ureteral stent insertion for calcium oxa late stone obstruction 2014 nephrolithiasis 2008 Hospitalization History Reason Date(Month/Year) No history ureteral stent insertion 2014
== END 2025-01-18 09:36 | disposition home or self-care (01) ==
LOC: HO.XRAY 09:35
PROVIDERS: PCP Internal Medicine Medical Oncology; Visit Provider Internal Medicine Medical Oncology
DX: R04.2 Hemoptysis (principal)
CPT/HCPCS: 71046

== ENCOUNTER → 2025-01-18 09:40 | Outpatient (BNV) | payer BC, SELFPAY | PROVIDERS: PCP Internal Medicine Medical Oncology; Visit Provider Radiology Diagnostic Radiology | DX: M47.815 Spondylosis without myelopathy or radiculopathy, thoracolumbar region (principal) | CPT/HCPCS: 71046 ==